=== PATIENT | male | born 1950 | race Caucasian/White ===

== ENCOUNTER → 2017-02-24 | Outpatient (CLI) | payer OTHER ==
[~2017-02-24] MED LIST: AMOX875T PO; HYDR-5688 PO
[2017-02-24 13:38] LABS: BASO % 0.3 %; BASO ABS # 0.02 K/uL (0-0.2); COMPLETE YES; EOS % 0.3 %; HEMATOCRIT 42.2 % (42-52); IG% 0.3 %; LYMPH % 16.9 %; LYMPH ABS # 1.12 K/uL (1.2-3.4); MEAN CELL VOLUME 87.6 fL (80-100); MEAN CORPUSCULAR HEMOGLOBIN 30.5 pg (25-34); MEAN CORPUSCULAR HGB CONC 34.8 g/dl (32-36); MEAN PLATELET VOLUME 9.6 fL (7.4-10.4); MONO % 14.2 %; PLATELET COUNT 146 K/uL (130-400); RED BLOOD COUNT 4.82 M/uL (4.7-6.1); WHITE BLOOD COUNT 6.62 K/uL (4.8-10.8)
[2017-02-24 14:13] LABS: ALT/SGPT 86 U/L (12-78); BLOOD UREA NITROGEN 19 mg/dl (7-18); BUN/CREATININE RATIO 17.1 (10-20); CALCIUM 9.3 mg/dl (8.5-10.1); CARBON DIOXIDE 28 mmol/L (21-32); CHLORIDE 98 mmol/L (98-107); CHOLESTEROL 168 mg/dl (0-200); GLUCOSE 103 mg/dl (70-99); POTASSIUM 3.6 mmol/L (3.5-5.1); SODIUM 133 mmol/L (136-145)
[2017-02-24 14:16] LABS: ALB/GLOB RATIO 0.8 (0.9-2); ALKALINE PHOSPHATASE 135 U/L (45-117); AST/SGOT 31 U/L (15-37); CHOLESTEROL/HDL RATIO 4.9; HDL CHOLESTEROL 34 mg/dl; LDL CHOLESTEROL CALCULATED 105 mg/dl; TRIGLYCERIDES 144 mg/dl (0-150); VERY LOW DENSITY LIPOPROT CALC 29 mg/dl
== END | disposition home or self-care (01) ==
LOC: C.LAB1850 12:16
PROVIDERS: ATTEND Physician Assistant
DX: Z00.00 Encounter for general adult medical examination without abnormal findings (principal)

== ENCOUNTER 2017-02-25 06:41 | Inpatient (IN) | payer OTHER ==
[2017-02-25] VITALS (7 sets, daily range): BP systolic 140–156; BP diastolic 79–94; PULSE 89–104; TEMP 36.6–37.9; O2SAT 93–97; Ht 188 cm; Wt 94.0 kg
[~2017-02-25] VITALS: Ht 188 cm; Wt 94.0 kg
--- NOTE | 2017-02-25 06:59 | EMERGENCY ROOM VISIT NOTE ---
History Report prepared by Dmitry: Modesta Landers Under the Supervision of: Dr. Juhi Contreras D.O. First contact with patient: 06:51 Chief Complaint: ABDOMINAL PAIN Stated Complaint: SICK History of Present Illness The patient is a 67 year old male who presents to the Emergency Room with complaints of worsening abdominal pain beginning 1 week prior to arrival. He describes the pain as a dull pressure sensation. He has been experiencing intermittent fevers and chills since the abdominal pain began. He states that he did eat a [place] hoagie and a salad last week which caused his abdominal pain to worsen. The patient also notes darker stools. The patient states that nothing improves the pain. The patient was seen at the clinic on Friday and was prescribed medication and had a stool sample done. He does note that taking Omeprazole and Zofran which he was prescribed slightly improves his symptoms. The patient saw his PCP yesterday who ordered blood work after thinking his abdominal pain is from taking too much Advil. He states that he takes Advil daily for his chronic hip pain. He had normal H&H, normal BNP, mild elevation of ALT and ALK phos. The patient's PCP is trying to schedule him for an endoscopy to be done by GI. He denies a history of GI problems. He denies a history fo abdominal pain. Pt denies headache, change in vision, fevers, chest pain, shortness of breath, nausea, vomiting, diarrhea, pain with urination, and melena. Source of History: patient Onset: 1 week [employer] Position: abdomen Quality: pressure, dull Timing: worsening Associated Symptoms: + fevers, + chills Note: The patient is experiencing darker stools. Review of Systems See HPI for pertinent positives & negatives. A total of 10 systems reviewed and were otherwise negative. Past Medical & Surgical Medical Problems: (1) Choledocholithiasis Surgical Problems: (1) Hx of tonsillectomy Family History Diabetes mellitus Heart disease Social History Smoking Status: Never Smoker Smokeless Tobacco Use: No Marital Status: Housing Status: lives with significant other Occupation Status: retired Current/Historical Medications No Active Prescriptions or Reported Meds Allergies Coded Allergies: No Known Allergies (Unverified , 02/25/17) Physical Exam Vital Signs Date Time Temp Pulse Resp B/P (MAP) Pulse Ox O2 Delivery O2 Flow Rate FiO2 02/25/17 10:31 87 16 176/100 95 02/25/17 08:31 94 16 193/115 97 02/25/17 06:55 87 02/25/17 06:45 36.4 96 16 152/95 97 Room Air Physical Exam GENERAL: alert, uncomfortable appearing, well nourished, no distress, non-toxic EYE EXAM: normal conjunctiva, PERRL and EOM's grossly intact OROPHARYNX: no exudate, no erythema, lips, buccal mucosa, and tongue normal and mucous membranes are moist NECK: supple, no nuchal rigidity, no adenopathy, non-tender LUNGS: Clear to auscultation. Normal chest wall mechanics HEART: no murmurs, S1 normal and S2 normal ABDOMEN: abdomen soft, non-tender, no organomegaly, normo-active bowel sounds, no masses, no rebound or guarding. BACK: Back is symmetrical on inspection and there is no deformity, no midline tenderness, no CVA tenderness. SKIN: no rashes and no bruising UPPER EXTREMITIES: upper extremities are grossly normal. LOWER EXTREMITIES: No pitting edema. NEURO EXAM: Normal sensorium, cranial nerves II-XII grossly intact, normal speech, no gross weakness of arms, no gross weakness of legs. Medical Decision & Procedures ER Provider Diagnostic Interpretation: Radiology results have been interpreted by the radiologist and reviewed by me. ABDOMEN AND PELVIS CT WITH IV CONTRAST CT DOSE: 587.27 mGy.cm HISTORY: abd pain TECHNIQUE: Multiaxial CT images of the abdomen and pelvis were performed following the use of intravenous contrast. COMPARISON STUDY: None. FINDINGS: Lung bases are clear. Mild fatty infiltration of liver. Several small hepatic hypodensities statistically consistent with small cysts. Spleen and pancreas are unremarkable. Gallbladder is mildly distended. There is a subtle indistinctness of the gallbladder wall with a trace amount of pericholecystic infiltrative change. At least 2 small gallstones are present region of the gallbladder neck. Possibility of acute cholecystitis is considered with right upper quadrant ultrasonography is suggested. Transaxial image 41 suggest potential choledocholithiasis with a potential 3 mm calculus of the distal common duct. No distention of the pancreatic duct. Bowel pattern is considered nonobstructive. There is approximately minimal nonobstructive ileus. Appendix is normal. There are findings of chronic sigmoid diverticulosis. There is no evidence for acute diverticulitis. IMPRESSION: 1. Findings highly suspect for acute cholecystitis. 2. Potential choledocholithiasis 3. Chronic sigmoid diverticulosis. 4. Minimal nonobstructive ileus 5. Normal appendix. 6. Right upper quadrant ultrasound is recommended as follow-up. Electronically signed by: Joey Perez M.D. 02/25/2017 8:45 AM Dictated Date/Time: 02/25/2017 8:41 AM ULTRASOUND RIGHT UPPER QUADRANT ABDOMEN CLINICAL HISTORY: Right upper quadrant abdominal pain. Abnormal CT. COMPARISON STUDY: Abdominal CT dated 02/25/2017. TECHNIQUE: Real-time, grayscale, and color flow sonography of the right upper quadrant of the abdomen was performed. Images are reviewed in the transverse and longitudinal planes. FINDINGS: Liver: The liver is enlarged measuring over 18 cm in length. The liver demonstrates heterogeneously increased echotexture suggesting steatosis. There is mild central intrahepatic biliary ductal dilatation. The main portal vein is patent. There are 2 well-circumscribed echogenic lesions in the right hepatic lobe these measure up to 12 mm and are typical appearance for small hemangiomas. Gallbladder: The gallbladder is distended and thick-walled. The gallbladder wall measures up to 4 mm and there is biliary sludge identified. Small stones are suspected. No pericholecystic fluid is seen. A sonographic Rosado's sign is reportedly absent. The common bile duct measures up to 0.8 cm in diameter. Pancreas: Not well visualized due to overlying bowel gas. Right kidney: Survey images of the right kidney demonstrate normal size and echotexture. There is no hydronephrosis. Ascites: None. IMPRESSION: 1. Findings are consistent with acute cholecystitis. This was also seen on today's abdominal CT scan. Surgical consultation is advised. 2. There is mild intra and extrahepatic biliary ductal dilatation. Common bile duct stones are identified on today's abdominal CT scan. 3. The pancreas was not well visualized due to overlying bowel gas. 4. There are at least 2 small echogenic hepatic lesions identified. These are typical appearance for small hemangiomas. 5. Hepatomegaly and mild hepatic steatosis. Electronically signed by: Bernard Hatch M.D. 02/25/2017 9:51 AM Dictated Date/Time: 02/25/2017 9:46 AM CHEST ONE VIEW PORTABLE CLINICAL HISTORY: pre-op preoperative evaluation COMPARISON STUDY: No previous studies for comparison. FINDINGS: Mild cardiomegaly. Diaphragms smooth. Lungs are clear. IMPRESSION: Mild cardia megaly. Otherwise negative study. Electronically signed by: Joey Perez M.D. 02/25/2017 11:23 AM Dictated Date/Time: 02/25/2017 11:22 AM Laboratory Results 02/25/17 07:09 Red Blood Count 4.76, Mean Corpuscular Volume 84.7, Mean Corpuscular Hemoglobin 31.3, Mean Corpuscular Hemoglobin Concent 37.0, Mean Platelet Volume 9.3, Neutrophils (%) (Auto) 85.0, Lymphocytes (%) (Auto) 4.5, Monocytes (%) (Auto) 10.0, Eosinophils (%) (Auto) 0.1, Basophils (%) (Auto) 0.1, Neutrophils # (Auto ) 8.42, Lymphocytes # (Auto) 0.45, Monocytes # (Auto) 0.99, Eosinophils # (Auto ) 0.01, Basophils # (Auto) 0.01 02/25/17 07:09 Test 02/25/17 07:07 02/25/17 07:09 Lactic Acid Level 1.3 mmol/L (0.4-2.0) White Blood Count 9.91 K/uL (4.8-10.8) Red Blood Count 4.76 M/uL (4.7-6.1) Hemoglobin 14.9 g/dL (14.0-18.0) Hematocrit 40.3 % (42-52) Mean Corpuscular Volume 84.7 fL (80-100) Mean Corpuscular Hemoglobin 31.3 pg (25-34) Mean Corpuscular Hemoglobin Concent 37.0 g/dl (32-36) Platelet Count 160 K/uL (130-400) Mean Platelet Volume 9.3 fL (7.4-10.4) Neutrophils (%) (Auto) 85.0 % Lymphocytes (%) (Auto) 4.5 % Monocytes (%) (Auto) 10.0 % Eosinophils (%) (Auto) 0.1 % Basophils (%) (Auto) 0.1 % Neutrophils # (Auto) 8.42 K/uL (1.4-6.5) Lymphocytes # (Auto) 0.45 K/uL (1.2-3.4) Monocytes # (Auto) 0.99 K/uL (0.11-0.59) Eosinophils # (Auto) 0.01 K/uL (0-0.5) Basophils # (Auto) 0.01 K/uL (0-0.2) RDW Standard Deviation 37.2 fL (36.4-46.3) RDW Coefficient of Variation 12.0 % (11.5-14.5) Immature Granulocyte % (Auto) 0.3 % Immature Granulocyte # (Auto) 0.03 K/uL (0.00-0.02) Prothrombin Time 12.3 SECONDS (9.0-12.0) Prothromb Time International Ratio 1.1 (0.9-1.1) Anion Gap 10.0 mmol/L (3-11) Est Creatinine Clear Calc Drug Dose 86.3 ml/min Estimated GFR () 95.5 Estimated GFR (Non- 82.4 BUN/Creatinine Ratio 16.1 (10-20) Calcium Level 8.7 mg/dl (8.5-10.1) Total Bilirubin 1.5 mg/dl (0.2-1) Aspartate Amino Transf (AST/SGOT) 34 U/L (15-37) Alanine Aminotransferase (ALT/SGPT) 88 U/L (12-78) Alkaline Phosphatase 170 U/L (45-117) Total Protein 7.3 gm/dl (6.4-8.2) Albumin 3.2 gm/dl (3.4-5.0) Globulin 4.1 gm/dl (2.5-4.0) Albumin/Globulin Ratio 0.8 (0.9-2) Lipase 397 U/L (73-393) Laboratory results per my review. Medications Administered Medications (Trade) Dose Ordered Sig/Melody Route Start Time Stop Time Status Last Admin Dose Admin Morphine Sulfate (MoRPHine SULFATE INJ) 4 mg NOW STAT IV 02/25/17 07:06 02/25/17 07:08 DC 02/25/17 07:15 4 MG Ondansetron HCl (Zofran Inj) 4 mg NOW STAT IV 02/25/17 07:06 02/25/17 07:08 DC 02/25/17 07:16 4 MG Pantoprazole Sodium 40 mg/ Syringe 10 ml @ 5 mls/min NOW ONCE IV 02/25/17 07:15 02/25/17 07:16 DC 02/25/17 07:47 5 MLS/MIN Sodium Chloride 1,000 ml @ 250 mls/hr Q4H STAT IV 02/25/17 07:06 02/25/17 11:05 DC 02/25/17 07:15 250 MLS/HR Morphine Sulfate (MoRPHine SULFATE INJ) 4 mg NOW STAT IV 02/25/17 08:11 02/25/17 08:12 DC 02/25/17 08:16 4 MG Hydromorphone HCl (Dilaudid Inj) 1 mg NOW STAT IV 02/25/17 08:52 02/25/17 09:03 DC 02/25/17 09:26 1 MG Cefoxitin Sodium (Mefoxin 2000mg/ 60 ml D5W) 2,000 mg NOW STAT IV 02/25/17 10:13 02/25/17 10:14 DC 02/25/17 10:50 2,000 MG ECG Indication: abdominal pain Rate (beats per minute): 88 Rhythm: normal sinus Findings: PVC, no acute ischemic change, other (normal intervals, normal axis) ED Course 0651: The patient was evaluated in room B2. A complete history and physical exam was performed. 0706: Sodium Chloride 1,000 ml @ 125 mls/hr IV, Zofran Inj 4 mg IV, Morphine Sulfate Inj 4 mg IV. 0715: Pantoprazole Sodium 40 mg/ Syringe 10 ml @ 5 mls/min IV. 0853: I updated the patient on his test results. 1010: I reviewed the patient's case with Dr. Bañuelos - General Surgery. Dr. Bañuelos will evaluate the patient and prep for the OR. 1013: Mefoxin 2000 mg/ 60 ml D5W 2,000 mg IV. 1016: I updated the patient on plan for Dr. Bañuelos to evaluate and prep for surgery. 1024: Upon reevaluation, the patient is hemodynamically stable. I discussed the findings and the treatment plan with the patient. He expresses agreement and understanding. I spoke with Dr. Bañuelos of General Surgery. He will be evaluated for further management. Medical Decision The patient is a 67 year old male who presents to the ED with complaints of abdominal pain. Differential diagnoses includes but is not limited to gastritis, peptic ulcer disease, GERD, gallbladder disease, pancreatitis, small bowel obstruction, acute coronary syndrome, pericarditis, ischemic bowel, irritable bowel disease, irritable bowel syndrome, appendicitis, diverticulitis, malignancy, hernia, urinary tract infection, torsion, perforation, trauma, infectious. Blood pressure screening: Patient was found to have a slightly elevated blood pressure due to circumstances. I do not believe that the patient requires hypertension monitoring. Patient initially ill-appearing, evaluation found acute cholecystitis and possible choledocholithiasis. No evidence of bacteremia/sepsis. Pain well controlled here with medications. Discussed case with surgery who admitted the patient primarily. Surgery consulted with GI and will continue evaluate the choledocholithiasis. Vital signs otherwise stable. Patient given preoperative dose of antibiotics and IV fluids was maintained nothing by mouth. Patient and family aware of all findings were agreeable with plan for admission and likely surgery. Consults Time Called: 1007 Consulting Physician: Dr. Bañuelos - General Surgery Returned Call: [phone] I reviewed the patient's case with Dr. Bañuelos - General Surgery. Dr. Bañuelos will evaluate the patient and prep for the OR. Impression Primary Impression: Abdominal pain Additional Impressions: Acute cholecystitis Choledocholithiasis Scribe Attestation The scribe's documentation has been prepared under my direction and personally reviewed by me in its entirety. I confirm that the note above accurately reflects all work, treatment, procedures, and medical decision making performed by me. Departure Information Dispostion Being Evaluated By Surgeon Prescriptions No Active Prescriptions or Reported Meds Referrals Pro,Brent Gant M.D. (PCP) Problem Qualifiers Primary Impression: Abdominal pain Abdominal location: generalized Qualified Codes: R10.84 - Generalized abdominal pain
[2017-02-25] MEDS ORDERED: SODIUM CHLORIDE 0.9% 1000ML 1,000 ML IV STA (07:06)
[2017-02-25] MEDS ORDERED: MoRPHine SULFATE 4 MG/ML 1 ML CARP\\VIAL IV STA ×2 (07:06→08:11)
[2017-02-25] MEDS ORDERED: ONDANSETRON INJ 2 MG/ML 2 ML VIAL IV STA (07:06)
[2017-02-25] MEDS ORDERED: PANTOprazole INJ 40 MG in SYRINGE 0 ML IV ONE (07:15)
[2017-02-25 07:29] LABS: BASO % 0.1 %; BASO ABS # 0.01 K/uL (0-0.2); COMPLETE YES; EOS % 0.1 %; HEMATOCRIT 40.3 % (42-52); IG% 0.3 %; LYMPH % 4.5 %; LYMPH ABS # 0.45 K/uL (1.2-3.4); MEAN CELL VOLUME 84.7 fL (80-100); MEAN CORPUSCULAR HEMOGLOBIN 31.3 pg (25-34); MEAN PLATELET VOLUME 9.3 fL (7.4-10.4); PLATELET COUNT 160 K/uL (130-400); RED BLOOD COUNT 4.76 M/uL (4.7-6.1); WHITE BLOOD COUNT 9.91 K/uL (4.8-10.8)
[2017-02-25 07:37] LABS: INR 1.1 (0.9-1.1); PROTHROMBIN TIME (PATIENT) 12.3 SECONDS (9.0-12.0)
[2017-02-25 07:47] LABS: BUN/CREATININE RATIO 16.1 (10-20); CALCIUM 8.7 mg/dl (8.5-10.1); CREATININE 0.94 mg/dl (0.60-1.40); POTASSIUM 3.5 mmol/L (3.5-5.1)
[2017-02-25 07:52] LABS: ALB/GLOB RATIO 0.8 (0.9-2)
--- NOTE | 2017-02-25 08:46 | DIAGNOSTIC IMAGING REPORT ---
ABDOMEN AND PELVIS CT WITH IV CONTRAST CT DOSE: 587.27 mGy.cm HISTORY: abd pain TECHNIQUE: Multiaxial CT images of the abdomen and pelvis were performed following the use of intravenous contrast. COMPARISON STUDY: None. FINDINGS: Lung bases are clear. Mild fatty infiltration of liver. Several small hepatic hypodensities statistically consistent with small cysts. Spleen and pancreas are unremarkable. Gallbladder is mildly distended. There is a subtle indistinctness of the gallbladder wall with a trace amount of pericholecystic infiltrative change. At least 2 small gallstones are present region of the gallbladder neck. Possibility of acute cholecystitis is considered with right upper quadrant ultrasonography is suggested. Transaxial image 41 suggest potential choledocholithiasis with a potential 3 mm calculus of the distal common duct. No distention of the pancreatic duct. Bowel pattern is considered nonobstructive. There is approximately minimal nonobstructive ileus. Appendix is normal. There are findings of chronic sigmoid diverticulosis. There is no evidence for acute diverticulitis. IMPRESSION: 1. Findings highly suspect for acute cholecystitis. 2. Potential choledocholithiasis 3. Chronic sigmoid diverticulosis. 4. Minimal nonobstructive ileus 5. Normal appendix. 6. Right upper quadrant ultrasound is recommended as follow-up. Electronically signed by: Joey Perez M.D. 02/25/2017 8:45 AM Dictated Date/Time: 02/25/2017 8:41 AM
[2017-02-25] MEDS ORDERED: HYDROmorphone INJ 1 MG/ML SYR IV STA (08:52)
--- NOTE | 2017-02-25 09:53 | DIAGNOSTIC IMAGING REPORT ---
ULTRASOUND RIGHT UPPER QUADRANT ABDOMEN CLINICAL HISTORY: Right upper quadrant abdominal pain. Abnormal CT. COMPARISON STUDY: Abdominal CT dated 02/25/2017. TECHNIQUE: Real-time, grayscale, and color flow sonography of the right upper quadrant of the abdomen was performed. Images are reviewed in the transverse and longitudinal planes. FINDINGS: Liver: The liver is enlarged measuring over 18 cm in length. The liver demonstrates heterogeneously increased echotexture suggesting steatosis. There is mild central intrahepatic biliary ductal dilatation. The main portal vein is patent. There are 2 well-circumscribed echogenic lesions in the right hepatic lobe these measure up to 12 mm and are typical appearance for small hemangiomas. Gallbladder: The gallbladder is distended and thick-walled. The gallbladder wall measures up to 4 mm and there is biliary sludge identified. Small stones are suspected. No pericholecystic fluid is seen. A sonographic Rosado's sign is reportedly absent. The common bile duct measures up to 0.8 cm in diameter. Pancreas: Not well visualized due to overlying bowel gas. Right kidney: Survey images of the right kidney demonstrate normal size and echotexture. There is no hydronephrosis. Ascites: None. IMPRESSION: 1. Findings are consistent with acute cholecystitis. This was also seen on today's abdominal CT scan. Surgical consultation is advised. 2. There is mild intra and extrahepatic biliary ductal dilatation. Common bile duct stones are identified on today's abdominal CT scan. 3. The pancreas was not well visualized due to overlying bowel gas. 4. There are at least 2 small echogenic hepatic lesions identified. These are typical appearance for small hemangiomas. 5. Hepatomegaly and mild hepatic steatosis. Electronically signed by: Bernard Hatch M.D. 02/25/2017 9:51 AM Dictated Date/Time: 02/25/2017 9:46 AM
[2017-02-25] MEDS ORDERED: CEFOXITIN 2000MG/60 ML D5W IV STA (10:13)
--- NOTE | 2017-02-25 10:41 | History and Physical ---
History & Physical Date & Time of Service: Feb 25, 2017 at 10:33 Chief Complaint: SICK Primary Care Physician: Brent Wilson M.D. History of Present Illness Source: patient, spouse to Er with abd pain worse over 24-48 hrs- intermittent over 1 week some nausea, no vomiting ER eval including CT and U/S- shows acute cholecystitis and possible CBD stone on CT- elevated LFTs (mild) Family History Diabetes mellitus Heart disease Social History Smoking Status: Never Smoker Smokeless Tobacco Use: No Marital Status: Occupational Status: retired Allergies Coded Allergies: No Known Allergies (Unverified , 02/25/17) Home Medications No Active Prescriptions or Reported Meds Review of Systems Constitutional: No fever, No chills Respiratory: No cough, No shortness of breath Cardiovascular: No chest pain Abdomen: + pain, + nausea, No vomiting Musculoskeletal: No joint pain Endocrine: No fatigue Integumentary: No rash Physical Exam Vital Signs Date Time Temp Pulse Resp B/P (MAP) Pulse Ox O2 Delivery O2 Flow Rate FiO2 02/25/17 10:31 87 16 176/100 95 02/25/17 08:31 94 16 193/115 97 02/25/17 06:55 87 02/25/17 06:45 36.4 96 16 152/95 97 Room Air General Appearance: WD/WN, no apparent distress Head: atraumatic Eyes: sclerae normal Neck: supple Respiratory/Chest: normal breath sounds, no respiratory distress Cardiovascular: regular rate, rhythm Abdomen/GI: soft, + tenderness (mild upper abd pain) Neurologic/Psych: alert Skin: warm/dry Diagnostics Laboratory Results Results Past 24 Hours Test 02/25/17 07:07 02/25/17 07:09 Range/Units Lactic Acid Level 1.3 0.4-2.0 mmol/L White Blood Count 9.91 4.8-10.8 K/uL Red Blood Count 4.76 4.7-6.1 M/uL Hemoglobin 14.9 14.0-18.0 g/dL Hematocrit 40.3 42-52 % Mean Corpuscular Volume 84.7 80-100 fL Mean Corpuscular Hemoglobin 31.3 25-34 pg Mean Corpuscular Hemoglobin Concent 37.0 32-36 g/dl Platelet Count 160 130-400 K/uL Mean Platelet Volume 9.3 7.4-10.4 fL Neutrophils (%) (Auto) 85.0 % Lymphocytes (%) (Auto) 4.5 % Monocytes (%) (Auto) 10.0 % Eosinophils (%) (Auto) 0.1 % Basophils (%) (Auto) 0.1 % Neutrophils # (Auto) 8.42 1.4-6.5 K/uL Lymphocytes # (Auto) 0.45 1.2-3.4 K/uL Monocytes # (Auto) 0.99 0.11-0.59 K/uL Eosinophils # (Auto) 0.01 0-0.5 K/uL Basophils # (Auto) 0.01 0-0.2 K/uL RDW Standard Deviation 37.2 36.4-46.3 fL RDW Coefficient of Variation 12.0 11.5-14.5 % Immature Granulocyte % (Auto) 0.3 % Immature Granulocyte # (Auto) 0.03 0.00-0.02 K/uL Prothrombin Time 12.3 9.0-12.0 SECONDS Prothromb Time International Ratio 1.1 0.9-1.1 Sodium Level 133 136-145 mmol/L Potassium Level 3.5 3.5-5.1 mmol/L Chloride Level 96 98-107 mmol/L Carbon Dioxide Level 27 21-32 mmol/L Anion Gap 10.0 3-11 mmol/L Blood Urea Nitrogen 15 7-18 mg/dl Creatinine 0.94 0.60-1.40 mg/dl Est Creatinine Clear Calc Drug Dose 86.3 ml/min Estimated GFR () 95.5 Estimated GFR (Non- 82.4 BUN/Creatinine Ratio 16.1 10-20 Random Glucose 160 70-99 mg/dl Calcium Level 8.7 8.5-10.1 mg/dl Total Bilirubin 1.5 0.2-1 mg/dl Aspartate Amino Transf (AST/SGOT) 34 15-37 U/L Alanine Aminotransferase (ALT/SGPT) 88 12-78 U/L Alkaline Phosphatase 170 45-117 U/L Total Protein 7.3 6.4-8.2 gm/dl Albumin 3.2 3.4-5.0 gm/dl Globulin 4.1 2.5-4.0 gm/dl Albumin/Globulin Ratio 0.8 0.9-2 Lipase 397 73-393 U/L Impression Assessment and Plan admit with acute cholecystitis, npo, IV atbx, ask [facility] hospitalist to see (Htn) and GI consult for possible ERCP order MRCP will need lap eleonora at some point VTE Prophylaxis VTE Risk Assessment Done? Y/N: Yes Risk Level: Moderate
[2017-02-25] MEDS ORDERED: PROMETHAZINE HCL INJ 25 MG in SODIUM CHLORIDE 0.9% 50ML 50 ML IV PRN (10:45)
[2017-02-25] MEDS ORDERED: ONDANSETRON INJ 2 MG/ML 2 ML VIAL IV PRN ×3 (10:45→16:15)
[2017-02-25] MEDS ORDERED: HYDROmorphone INJ 0.5 MG/0.5 ML SYR IV PRN (10:45)
[2017-02-25] MEDS ORDERED: HYDROmorphone INJ 1 MG/ML SYR IV PRN ×3 (10:45→16:15)
[2017-02-25] MEDS ORDERED: PROMETHAZINE HCL INJ 12.5 MG in SODIUM CHLORIDE 0.9% 50ML 50 ML IV PRN (11:00)
--- NOTE | 2017-02-25 11:24 | DIAGNOSTIC IMAGING REPORT ---
CHEST ONE VIEW PORTABLE CLINICAL HISTORY: pre-op preoperative evaluation COMPARISON STUDY: No previous studies for comparison. FINDINGS: Mild cardiomegaly. Diaphragms smooth. Lungs are clear. IMPRESSION: Mild cardia megaly. Otherwise negative study. Electronically signed by: Joey Perez M.D. 02/25/2017 11:23 AM Dictated Date/Time: 02/25/2017 11:22 AM
--- NOTE | 2017-02-25 11:53 | Gastrointestinal Consultation ---
Gastrointestinal Consultation Date of Consultation: Feb 25, 2017 Attending Physician: Ricardo Bañuelos Consulting Physician: Juanita Harris Reason for Consultation: Possible CBD stone History of Present Illness Patient is a 67 year old male who presented to ED w c/o diffuse mid abd pain since last along w chills. He denies associated fever, CP, SOB, n/v, changes in BM habits. Denies recent travels or sick contact. States relatively healthy not on meds. Upon eval, afebrile, CBC and coag studies unremarkable, but CMP showed LFT elevation: Tbili 1.5, AST 34, ALT 88, AP 170, Lipase >300s. Gallbladder u/s and CT abd/pelvis done - concerning for acute cholecystitis, possible CBD stone of 3mm, though CBD measured 8mm. Past Medical/Surgical History Medical Problems: (1) Abdominal pain Status: Acute (2) Acute cholecystitis Status: Acute Past Medical History: See HPI Past Surgical History: Tonsillectomy Family History Diabetes mellitus Heart disease Unrelated Social History Smoking Status: Former Smoker Alcohol Use: occasionally Drug Use: none Marital Status: Housing Status: lives with significant other Occupation Status: retired Allergies Coded Allergies: No Known Allergies (Unverified , 02/25/17) Current Medications Home Meds and Scripts Medications Dose Route/Sig Max Daily Dose Days Date Category No Active Prescriptions or Reported Medications Rx Review of Systems Constitutional: + chills, No fever Respiratory: No cough, No shortness of breath Cardiac: No chest pain Abdomen: + pain, No nausea, No vomiting, No diarrhea Skin: No rash, No itch, No jaundice Physical Exam Date Time Temp Pulse Resp B/P (MAP) Pulse Ox O2 Delivery O2 Flow Rate FiO2 02/25/17 10:45 95 Room Air 02/25/17 10:31 87 16 176/100 95 02/25/17 08:31 94 16 193/115 97 02/25/17 06:55 87 02/25/17 06:45 36.4 96 16 152/95 97 Room Air General Appearance: WD/WN, no apparent distress Eyes: normal inspection, PERRL, EOMI Neck: supple, no JVD, trachea midline Respiratory/Chest: normal breath sounds, no respiratory distress, no accessory muscle use Cardiovascular: regular rate, rhythm, no gallop, no murmur Abdomen: normal bowel sounds, non tender, soft Extremities: normal inspection, no pedal edema, no calf tenderness Neurologic/Psych: alert, normal mood/affect, oriented x 3 Skin: normal color, no jaundice, no rash Laboratory Results Last 24 Hours Test 02/25/17 07:07 02/25/17 07:09 Lactic Acid Level 1.3 mmol/L White Blood Count 9.91 K/uL Red Blood Count 4.76 M/uL Hemoglobin 14.9 g/dL Hematocrit 40.3 % Mean Corpuscular Volume 84.7 fL Mean Corpuscular Hemoglobin 31.3 pg Mean Corpuscular Hemoglobin Concent 37.0 g/dl Platelet Count 160 K/uL Mean Platelet Volume 9.3 fL Neutrophils (%) (Auto) 85.0 % Lymphocytes (%) (Auto) 4.5 % Monocytes (%) (Auto) 10.0 % Eosinophils (%) (Auto) 0.1 % Basophils (%) (Auto) 0.1 % Neutrophils # (Auto) 8.42 K/uL Lymphocytes # (Auto) 0.45 K/uL Monocytes # (Auto) 0.99 K/uL Eosinophils # (Auto) 0.01 K/uL Basophils # (Auto) 0.01 K/uL RDW Standard Deviation 37.2 fL RDW Coefficient of Variation 12.0 % Immature Granulocyte % (Auto) 0.3 % Immature Granulocyte # (Auto) 0.03 K/uL Prothrombin Time 12.3 SECONDS Prothromb Time International Ratio 1.1 Sodium Level 133 mmol/L Potassium Level 3.5 mmol/L Chloride Level 96 mmol/L Carbon Dioxide Level 27 mmol/L Anion Gap 10.0 mmol/L Blood Urea Nitrogen 15 mg/dl Creatinine 0.94 mg/dl Est Creatinine Clear Calc Drug Dose 86.3 ml/min Estimated GFR () 95.5 Estimated GFR (Non- 82.4 BUN/Creatinine Ratio 16.1 Random Glucose 160 mg/dl Calcium Level 8.7 mg/dl Total Bilirubin 1.5 mg/dl Aspartate Amino Transf (AST/SGOT) 34 U/L Alanine Aminotransferase (ALT/SGPT) 88 U/L Alkaline Phosphatase 170 U/L Total Protein 7.3 gm/dl Albumin 3.2 gm/dl Globulin 4.1 gm/dl Albumin/Globulin Ratio 0.8 Lipase 397 U/L Impression Patient is a 67 year old male w mid abd pain since last , no fever but chills. Labs showed elevated LFTs, Lipase, imaging w u/s and CT abd/pelvis concerning for acute cholecystitis and possible CBD stone, + mild intra/ extrahepatic ductal dilation. CBD measured 8mm. Plan - Keep NPO - Obtain MRCP - Surgery already following - Agree w antibx and IVF support Addendum: MRCP positive for filling defect concerning for choledocholithiasis. Pt will have lap cholecystectomy by Dr. Bañuelos today, plan for ERCP on at 2P by Dr. Bonds Late entry: Patient was seen and examined with Kalie Hernandez on 02/25. Her note reflects our findings and plan.
--- NOTE | 2017-02-25 12:59 | DIAGNOSTIC IMAGING REPORT ---
MRCP CLINICAL HISTORY: Cholecystitis and cholelithiasis. COMPARISON STUDY: Abdominal CT and abdominal ultrasound dated 02/25/2017. TECHNIQUE: Abdominal MRCP is performed utilizing various T2-weighted sequences in the axial and coronal planes. 3-D reformats are created and assessed. IV contrast was not administered for this examination. The examination is degraded by motion artifact. FINDINGS: The gallbladder is distended and filled with sludge and gallstones. The gallbladder wall is thickened and edematous. The appearance is consistent with acute cholecystitis, and there is trace pericholecystic fluid. There is mild intrahepatic biliary ductal dilatation. The common hepatic duct is dilated and measures up to 8 mm at the hilum. There is focal narrowing of the common duct seen proximally on coronal high-resolution image #89 of 132. Common bile duct wall thickening suggested at this site. The distal common bile duct is normal in caliber and measures up to 5 mm at the head of the pancreas. There is a 5 mm filling defect in the distal common bile duct seen on coronal image #93 and axial image #32. This corresponds to the calcified gallstone seen by CT. There is a focus of susceptibility artifact adjacent to the ampulla secondary to a tiny duodenal diverticulum. The pancreatic duct is normal in caliber. Small hepatic cysts are noted. The liver is otherwise grossly normal as imaged. The spleen, adrenal glands, pancreas are grossly unremarkable although incompletely assessed. The kidneys are normal in size and without hydronephrosis. Tiny renal cysts are suggested. No bowel obstruction is identified. No pleural effusion is seen. IMPRESSION: 1. Cholelithiasis and biliary sludge with evidence of acute cholecystitis. 2. A filling defect in the distal common bile duct is consistent with choledocholithiasis. This corresponds to the small calcified gallstone seen by CT. 3. There is focal narrowing in the proximal common bile duct with apparent wall thickening. No clear intraluminal filling defect is seen at this site. Although this could represent a proximal common duct stone, differential considerations must include stricture or less likely mass lesion. Follow-up with ERCP is recommended for further assessment. Electronically signed by: Bernard Hatch M.D. 02/25/2017 12:58 PM Dictated Date/Time: 02/25/2017 12:46 PM
[2017-02-25] MEDS ORDERED: LACTATED RINGER'S 1000ML 1,000 ML IV SCH (13:30)
[2017-02-25] MEDS ORDERED: MIDAZOLAM HCL 1 MG/ML 2ML VIAL ONE (14:08)
[2017-02-25] MEDS ORDERED: FENTANYL CITRATE INJ 50 MCG/1 ML 2 ML VIAL ONE ×3 (14:08→15:17)
[2017-02-25] MEDS ORDERED: ROCURONIUM BROMIDE 10 MG/ML 5 ML VIAL ONE (14:14)
[2017-02-25] MEDS ORDERED: DEXAMETHASONE SOD INJ 4 MG/ML VIAL ONE (14:14)
[2017-02-25] MEDS ORDERED: PROPOFOL IV EMULSION 10 MG/ML 20 ML VIAL IV ONE (14:14)
[2017-02-25] MEDS ORDERED: NEOSTIGMINE METHYLSULFATE 5 MG/5 ML SYR ONE (14:14)
[2017-02-25] MEDS ORDERED: LARYING-O-JET KIT (LTA) ONE ×2 (14:14)
[2017-02-25] MEDS ORDERED: GLYCOPYRROLATE INJ 0.2 MG/ML VIAL ONE (14:14)
[2017-02-25] MEDS ORDERED: LIDOCAINE HCL 2% 2 ML VIAL (20MG/ML) ONE (14:14)
[2017-02-25] MEDS ORDERED: ONDANSETRON INJ 2 MG/ML 2 ML VIAL ONE (14:14)
[2017-02-25] MEDS ORDERED: HydrALAZINE HCL 20 MG/ML VIAL IV. PRN (14:15)
[2017-02-25] MEDS ORDERED: BUPIVACAINE 0.5 % 5 MG/1 ML MPF 30ML VIAL ONE (14:25)
--- NOTE | 2017-02-25 14:25 | Medical Consult ---
Consultation Date of Consultation: Feb 25, 2017. Attending Physician: Ricardo Bañuelos M.D. Reason for Consultation: Medical Management History of Present Illness Mr. Bacon is a 67 y/o male with an unremarkable PMHx who was found to have acute cholecystitis due to cholelithiasis and biliary sludge. MRCP suggests choledocholithias in the distal CBD. Patient denies a history of HTN and states normally his readings are under control. He was noted to have BPs ranging from 170-190/100-115 in the ED. He is mildly febrile on vitals. Reporting abdominal pain is minimal at this time. When pain is present it is a dull/aching sensation. No acute abdomen, guarding, rigidity. He is schedule for lap eleonora this afternoon. He denies cardiac history - denying H/O [place], CAD, CHF, DVT/PE. Past Medical/Surgical History Medical Problems: (1) Abdominal pain Status: Acute (2) Acute cholecystitis Status: Acute Family History Diabetes mellitus Heart disease Social History Smoking Status: Former Smoker Smokeless Tobacco Use: No Drug Use: none Marital Status: Housing Status: lives with significant other Occupation Status: retired Allergies Coded Allergies: No Known Allergies (Unverified , 02/25/17) Current Inpatient Medications Current Inpatient Medications Medications (Trade) Dose Ordered Sig/Melody Route Start Time Stop Time Status Last Admin Dose Admin Lactated Ringer's 1,000 ml @ 125 mls/hr Q8H IV 02/25/17 13:30 03/27/17 13:29 02/25/17 13:18 125 MLS/HR Cefoxitin Sodium 1000 mg/Dextrose 60 ml @ 100 mls/hr Q8H IV 02/25/17 18:00 03/07/17 09:59 Hydromorphone HCl (Dilaudid Inj) 0.5 mg Q3H PRN IV 02/25/17 10:45 03/11/17 10:44 Hydromorphone HCl (Dilaudid Inj) 1 mg Q3H PRN IV 02/25/17 10:45 03/11/17 10:44 Promethazine HCl 25 mg/Sodium Chloride 51 ml @ 204 mls/hr Q6H PRN IV 02/25/17 10:45 03/27/17 10:44 Ondansetron HCl (Zofran Inj) 4 mg Q6H PRN IV 02/25/17 10:45 03/27/17 10:44 Promethazine HCl 12.5 mg/Sodium Chloride 50.5 ml @ 204 mls/hr Q6H PRN IV 02/25/17 11:00 03/27/17 10:59 Indomethacin (Indocin Suppository) 100 mg ONE ONCE IA 02/27/17 07:00 02/27/17 07:01 UNV Review of Systems Constitutional: No fever, No chills Eyes: No worsening of vision ENT: No nasal symptoms, No sore throat, No trouble swallowing Respiratory: No cough, No wheezing, No shortness of breath Cardiovascular: No chest pain, No palpitations Abdomen: + pain (minimal), No nausea, No vomiting, No diarrhea, No constipation , No GI bleeding Musculoskeletal: No swelling, No calf pain Genitourinary - Male: No dysuria Hematologic / Lymphatic: No abnormal bleeding/bruising, No clotting problems Integumentary: No rash, No new/changing skin lesions Physical Exam Date Time Temp Pulse Resp B/P (MAP) Pulse Ox O2 Delivery O2 Flow Rate FiO2 02/25/17 13:00 Room Air 02/25/17 13:00 37.6 92 20 140/83 (102) 94 Room Air 02/25/17 12:23 77 18 96 02/25/17 10:45 95 Room Air 02/25/17 10:31 87 16 176/100 95 02/25/17 08:31 94 16 193/115 97 02/25/17 06:55 87 02/25/17 06:45 36.4 96 16 152/95 97 Room Air General Appearance: WD/WN, no apparent distress Head: normocephalic, atraumatic ENT: hearing grossly normal Neck: supple, no JVD, trachea midline Respiratory/Chest: lungs clear, normal breath sounds, no respiratory distress, no accessory muscle use Cardiovascular: regular rate, rhythm, no gallop, no murmur Abdomen/GI: normal bowel sounds, soft, + tenderness (mild in RUQ) Extremities/Musculoskelatal: no calf tenderness, no pedal edema Neurologic/Psych: alert, oriented x 3 Laboratory Results Last 24 Hours Test 02/25/17 07:07 02/25/17 07:09 Lactic Acid Level 1.3 mmol/L White Blood Count 9.91 K/uL Red Blood Count 4.76 M/uL Hemoglobin 14.9 g/dL Hematocrit 40.3 % Mean Corpuscular Volume 84.7 fL Mean Corpuscular Hemoglobin 31.3 pg Mean Corpuscular Hemoglobin Concent 37.0 g/dl Platelet Count 160 K/uL Mean Platelet Volume 9.3 fL Neutrophils (%) (Auto) 85.0 % Lymphocytes (%) (Auto) 4.5 % Monocytes (%) (Auto) 10.0 % Eosinophils (%) (Auto) 0.1 % Basophils (%) (Auto) 0.1 % Neutrophils # (Auto) 8.42 K/uL Lymphocytes # (Auto) 0.45 K/uL Monocytes # (Auto) 0.99 K/uL Eosinophils # (Auto) 0.01 K/uL Basophils # (Auto) 0.01 K/uL RDW Standard Deviation 37.2 fL RDW Coefficient of Variation 12.0 % Immature Granulocyte % (Auto) 0.3 % Immature Granulocyte # (Auto) 0.03 K/uL Prothrombin Time 12.3 SECONDS Prothromb Time International Ratio 1.1 Sodium Level 133 mmol/L Potassium Level 3.5 mmol/L Chloride Level 96 mmol/L Carbon Dioxide Level 27 mmol/L Anion Gap 10.0 mmol/L Blood Urea Nitrogen 15 mg/dl Creatinine 0.94 mg/dl Est Creatinine Clear Calc Drug Dose 86.3 ml/min Estimated GFR () 95.5 Estimated GFR (Non- 82.4 BUN/Creatinine Ratio 16.1 Random Glucose 160 mg/dl Calcium Level 8.7 mg/dl Total Bilirubin 1.5 mg/dl Aspartate Amino Transf (AST/SGOT) 34 U/L Alanine Aminotransferase (ALT/SGPT) 88 U/L Alkaline Phosphatase 170 U/L Total Protein 7.3 gm/dl Albumin 3.2 gm/dl Globulin 4.1 gm/dl Albumin/Globulin Ratio 0.8 Lipase 397 U/L Assessment & Plan Mr. Bacon is a 67 y/o male with an unremarkable PMHx who was found to have acute cholecystitis due to cholelithiasis and biliary sludge. MRCP suggests choledocholithias in the distal CBD. Acute Cholecystitis with Cholelithiasis/Biliary Sludge and Choledocholithiasis: - IVF, Abx, Pain Management, DVT prophylaxis per primary - Dr. Bañuelos - GI consultation for possible need for ERCP with choledocholithiasis Hypertensive BPs: - No documented history of hypertension and not on any medications - may possibly be pain response vs undiagnosed - Hydralazine PRN - Will continue to monitor Disposition: - Will monitor BPs and reasonable to follow overnight. If BP readings controlled can sign off in AM. - If continues to stay elevated can initiate a medication or defer to PCP Resident Physician Supervision Note: I discussed the case with the PA and agree with the findings and plan as documented in the note. Any exceptions or clarifications are listed here: 67 y/o M who denies significant medical history - presented with RUQ pain - diagnosed with acute eleonora - pt taken to OR Successful lap eleonora per report - necrotizing eleonora present Pt attended ER prior to my own exam - addendum to follow Documented By: Brent Leonardo
[2017-02-25] MEDS ORDERED: ATROPINE SULFATE 0.1 MG/ML 5ML SYR IV PRN ×2 (14:30→16:15)
[2017-02-25] MEDS ORDERED: EpHEDrine SULFATE INJ 50 MG/ML AMP IV PRN ×2 (14:30→16:15)
[2017-02-25] MEDS ORDERED: FENTANYL CITRATE INJ 50 MCG/1 ML 2 ML VIAL IV PRN ×2 (14:30→16:15)
[2017-02-25] MEDS ORDERED: LABETALOL HCL IV 5 MG/ML 20ML IV PRN (14:30)
[2017-02-25] MEDS ORDERED: MEPERIDINE HCL 25 MG/ML CARP IV PRN (14:30)
[2017-02-25] MEDS ORDERED: HYDROCODONE/ACETAMOPHEN 5/325MG TAB PO PRN (15:45)
--- NOTE | 2017-02-25 15:56 | [facility] Operative Report ---
Operative Report Operative Date Feb 25, 2017. Pre-Operative Diagnosis Acute Cholecystitis Post-Operative Diagnosis Acute Cholecystitis, necrotizing (gangrenous) cholecystitis Procedure(s) Performed Laparoscopic Cholecystectomy Surgeon Dr. Bañuelos Reverberatory Skimmer Surgeon(s) wilner Foster Estimated Blood Loss 20ML Findings severe necrotizing (gangrenous ) cholecystitis Specimens A. Gallbladder Drains #15 Rd DYLAN Anesthesia gen Complication(s) None Disposition Recovery Room / PACU Description of Procedure Patient was brought in the operating room placed the operating room table in supine position. Pneumatic stockings and orogastric tube were placed. His abdomen was prepped and draped usual fashion. Half percent plain Marcaine was used to anesthetize all incisions. Incision was made above the umbilicus carried dissection down to the fascia placing a varies needle producing a pneumoperitoneum. An 11 mm port was placed at this level and then under visualization 3-5 mm ports were placed. One cephalad and 2 laterally. Patient was placed in reverse Trendelenburg position and rotated to the left. The omentum was adherent to the gallbladder which was severely inflamed and gangrenous. The gallbladder was decompressed of bile and thick fluid. Dissection was carried out the chad hepatis which showed severe inflammation. The cystic duct and cystic artery were identified clipped and transected. The gallbladder was dissected away from the liver bed in the usual fashion showing severe necrosis. Gallbladder was placed in an Endobag. Appropriate irrigation and hemostasis a #15 round Ke-Zepeda drain was placed through the lateral 5 mm port site and secured using 3-0 nylon suture. It was placed into the subhepatic space. The 5 mm camera was then used to remove the gallbladder through the umbilical site. I did have to enlarge the skin and fascial incisions to remove the large gallbladder. All ports were then removed the fascia at the umbilicus closed using interrupted 0 PDS suture. Skin was reapproximated using 4-0 nylon suture. His were applied and patient transferred to recovery room in stable condition. I attest to the content of the Intraoperative Record and any orders documented therein. Any exceptions are noted below.
[2017-02-25] MEDS: AMPICILLIN/SULBACTAM SOD INJ 1,500 MG in SODIUM CHLORIDE 0.9% 100ML 100 ML IV SCH ×2 (17:43→23:43)
[2017-02-25] MEDS: LACTATED RINGER'S 1000ML 1,000 ML IV SCH (17:43)
[2017-02-25] MEDS ORDERED: CEFOXITIN IV 1,000 MG in DEXTROSE 5% 50ML 50 ML IV SCH (18:00)
[2017-02-25] MEDS: HYDROCODONE/ACETAMOPHEN 5/325MG TAB PO PRN ×2 (22:22→23:23)
--- NOTE | 2017-02-25 22:37 | Anesthesiology Progress Note ---
Anesthesia Post Op Note Date & Time Feb 25, 2017 at 22:36 Vital Signs Pain Intensity: 3.0 Vital Signs Past 12 Hours Date Time Temp Pulse Resp B/P (MAP) Pulse Ox O2 Delivery O2 Flow Rate FiO2 02/25/17 19:15 37.6 99 16 153/94 (113) 94 Room Air 02/25/17 18:15 36.6 94 18 143/84 (103) 93 Room Air 02/25/17 17:42 36.7 89 18 156/90 (112) 97 Nasal Cannula 2.0 02/25/17 17:15 Nasal Cannula 2.0 02/25/17 17:15 Nasal Cannula 2.0 02/25/17 17:15 37.6 89 18 145/79 (101) 96 Nasal Cannula 2.0 02/25/17 17:00 88 18 157/86 96 Nasal Cannula 2 02/25/17 16:45 92 18 124/95 97 Nasal Cannula 2 02/25/17 16:35 36.4 92 18 149/95 97 Nasal Cannula 2 02/25/17 16:25 93 16 155/89 100 Oxymask 3 02/25/17 16:15 90 16 118/73 100 Oxymask 3 02/25/17 16:05 95 16 153/80 100 Oxymask 10 02/25/17 15:55 36.6 88 16 146/89 98 Oxymask 10 02/25/17 13:00 Room Air 02/25/17 13:00 37.6 92 20 140/83 (102) 94 Room Air 02/25/17 12:23 77 18 96 02/25/17 10:45 95 Room Air Notes Mental Status: alert / awake / arousable, participated in evaluation Pt Amnestic to Procedure: Yes Nausea / Vomiting: adequately controlled Pain: adequately controlled Airway Patency, RR, SpO2: stable & adequate BP & HR: stable & adequate Hydration State: stable & adequate Anesthetic Complications: no major complications apparent
[2017-02-26] MEDS: LACTATED RINGER'S 1000ML 1,000 ML IV SCH (01:48)
[2017-02-26 03:20] VITALS: BP 155/86; PULSE 87; TEMP 36.9; O2SAT 93
[2017-02-26] MEDS: AMPICILLIN/SULBACTAM SOD INJ 1,500 MG in SODIUM CHLORIDE 0.9% 100ML 100 ML IV SCH ×4 (05:29→23:58)
--- NOTE | 2017-02-26 06:05 | Surgery Progress Note ---
Surgery Progress Note Date of Service Feb 26, 2017. Subjective tolerating po- taking no pain med low grd fever Objective Vital Signs: Date Time Temp Pulse Resp B/P (MAP) Pulse Ox O2 Delivery O2 Flow Rate FiO2 02/26/17 03:20 36.9 87 17 155/86 (109) 93 Room Air 02/25/17 23:15 Room Air 02/25/17 23:05 37.9 104 18 151/92 (111) 94 Room Air 02/25/17 19:15 37.6 99 16 153/94 (113) 94 Room Air 02/25/17 18:15 36.6 94 18 143/84 (103) 93 Room Air 02/25/17 17:42 36.7 89 18 156/90 (112) 97 Nasal Cannula 2.0 02/25/17 17:15 Nasal Cannula 2.0 02/25/17 17:15 Nasal Cannula 2.0 02/25/17 17:15 37.6 89 18 145/79 (101) 96 Nasal Cannula 2.0 02/25/17 17:00 88 18 157/86 96 Nasal Cannula 2 02/25/17 16:45 92 18 124/95 97 Nasal Cannula 2 02/25/17 16:35 36.4 92 18 149/95 97 Nasal Cannula 2 02/25/17 16:25 93 16 155/89 100 Oxymask 3 02/25/17 16:15 90 16 118/73 100 Oxymask 3 02/25/17 16:05 95 16 153/80 100 Oxymask 10 02/25/17 15:55 36.6 88 16 146/89 98 Oxymask 10 02/25/17 13:00 Room Air 02/25/17 13:00 37.6 92 20 140/83 (102) 94 Room Air 02/25/17 12:23 77 18 96 02/25/17 10:45 95 Room Air 02/25/17 10:31 87 16 176/100 95 02/25/17 08:31 94 16 193/115 97 02/25/17 06:55 87 02/25/17 06:45 36.4 96 16 152/95 97 Room Air General Appearance: no apparent distress Respiratory/Chest: no respiratory distress Abdomen: + distended Incision(s): intact, drainage (expected DYLAN drainage) Laboratory Results: Results Past 24 Hours Test 02/25/17 07:07 02/25/17 07:09 02/26/17 05:46 Range/Units Lactic Acid Level 1.3 0.4-2.0 mmol/L White Blood Count 9.91 4.8-10.8 K/uL Red Blood Count 4.76 4.7-6.1 M/uL Hemoglobin 14.9 14.0-18.0 g/dL Hematocrit 40.3 42-52 % Mean Corpuscular Volume 84.7 80-100 fL Mean Corpuscular Hemoglobin 31.3 25-34 pg Mean Corpuscular Hemoglobin Concent 37.0 32-36 g/dl Platelet Count 160 130-400 K/uL Mean Platelet Volume 9.3 7.4-10.4 fL Neutrophils (%) (Auto) 85.0 % Lymphocytes (%) (Auto) 4.5 % Monocytes (%) (Auto) 10.0 % Eosinophils (%) (Auto) 0.1 % Basophils (%) (Auto) 0.1 % Neutrophils # (Auto) 8.42 1.4-6.5 K/uL Lymphocytes # (Auto) 0.45 1.2-3.4 K/uL Monocytes # (Auto) 0.99 0.11-0.59 K/uL Eosinophils # (Auto) 0.01 0-0.5 K/uL Basophils # (Auto) 0.01 0-0.2 K/uL RDW Standard Deviation 37.2 36.4-46.3 fL RDW Coefficient of Variation 12.0 11.5-14.5 % Immature Granulocyte % (Auto) 0.3 % Immature Granulocyte # (Auto) 0.03 0.00-0.02 K/uL Prothrombin Time 12.3 9.0-12.0 SECONDS Prothromb Time International Ratio 1.1 0.9-1.1 Sodium Level 133 136-145 mmol/L Potassium Level 3.5 3.5-5.1 mmol/L Chloride Level 96 98-107 mmol/L Carbon Dioxide Level 27 21-32 mmol/L Anion Gap 10.0 3-11 mmol/L Blood Urea Nitrogen 15 7-18 mg/dl Creatinine 0.94 0.60-1.40 mg/dl Est Creatinine Clear Calc Drug Dose 86.3 ml/min Estimated GFR () 95.5 Estimated GFR (Non- 82.4 BUN/Creatinine Ratio 16.1 10-20 Random Glucose 160 70-99 mg/dl Calcium Level 8.7 8.5-10.1 mg/dl Total Bilirubin 1.5 0.2-1 mg/dl Aspartate Amino Transf (AST/SGOT) 34 15-37 U/L Alanine Aminotransferase (ALT/SGPT) 88 12-78 U/L Alkaline Phosphatase 170 45-117 U/L Total Protein 7.3 6.4-8.2 gm/dl Albumin 3.2 3.4-5.0 gm/dl Globulin 4.1 2.5-4.0 gm/dl Albumin/Globulin Ratio 0.8 0.9-2 Lipase 397 73-393 U/L Assessment & Plan 02/26/17- s/p lap eleonora with findings of severe necrotizing cholecystitis doing well, drain in place, labs pending, cont Unasyn, for ERCP per GI team
[2017-02-26 06:43] LABS: HEMATOCRIT 38.3 % (42-52); MEAN CELL VOLUME 87.6 fL (80-100); MEAN CORPUSCULAR HEMOGLOBIN 29.7 pg (25-34); MEAN CORPUSCULAR HGB CONC 33.9 g/dl (32-36); MEAN PLATELET VOLUME 9.2 fL (7.4-10.4); PLATELET COUNT 168 K/uL (130-400); RED BLOOD COUNT 4.37 M/uL (4.7-6.1); WHITE BLOOD COUNT 11.73 K/uL (4.8-10.8)
[2017-02-26 07:23] LABS: BUN/CREATININE RATIO 11.7 (10-20); CALCIUM 8.4 mg/dl (8.5-10.1); CREATININE 0.96 mg/dl (0.60-1.40); MAGNESIUM 2.1 mg/dl (1.8-2.4); POTASSIUM 3.6 mmol/L (3.5-5.1)
[2017-02-26 07:26] LABS: ALB/GLOB RATIO 0.7 (0.9-2); PHOSPHORUS 2.6 mg/dl (2.5-4.9)
--- NOTE | 2017-02-26 07:28 | Anesthesiology Progress Note ---
Anesthesia Post Op Note Date & Time Feb 26, 2017 at 07:27 Vital Signs Vital Signs Past 12 Hours Date Time Temp Pulse Resp B/P (MAP) Pulse Ox O2 Delivery O2 Flow Rate FiO2 02/26/17 03:20 36.9 87 17 155/86 (109) 93 Room Air 02/25/17 23:15 Room Air 02/25/17 23:05 37.9 104 18 151/92 (111) 94 Room Air Notes Mental Status: alert / awake / arousable, participated in evaluation Pt Amnestic to Procedure: Yes Nausea / Vomiting: adequately controlled Pain: adequately controlled Airway Patency, RR, SpO2: stable & adequate BP & HR: stable & adequate Hydration State: stable & adequate Anesthetic Complications: no major complications apparent
[2017-02-26 07:30] VITALS: BP 146/84; PULSE 94; TEMP 37.2; O2SAT 95
[2017-02-26] MEDS: HEPARIN SOD 5000 UNIT/0.5 ML CARP SQ SCH ×2 (08:10→21:05)
[2017-02-26 09:37] VITALS: O2SAT 95
[2017-02-26] MEDS ORDERED: NURSING VERBAL MED ORDER ONE (11:30)
[2017-02-26 11:53] VITALS: BP 156/88; PULSE 95; TEMP 37.7; O2SAT 93
--- NOTE | 2017-02-26 12:03 | Gastroenterology Progress Note ---
Progress Note Date of Service: Feb 26, 2017 Subjective Pt evaluation today including: conversation w/ patient, physical exam, chart review, lab review, review of inpatient medication list Pt s/p lap eleonora yesterday, feels well, had mild febrile episodes yesterday up to 37.6, no longer having chills. Denies any abd pain, n/v. Review of Systems Constitutional: + fever (mild 37.6), No chills Respiratory: No cough, No shortness of breath Cardiac: No chest pain Abdomen: No pain, No nausea, No vomiting Skin: No rash, No itch, No jaundice Medications Current Inpatient Medications Medications (Trade) Dose Ordered Sig/Melody Route Start Time Stop Time Status Last Admin Dose Admin Hydromorphone HCl (Dilaudid Inj) 0.5 mg Q3H PRN IV 02/25/17 10:45 03/11/17 10:44 Hydromorphone HCl (Dilaudid Inj) 1 mg Q3H PRN IV 02/25/17 10:45 03/11/17 10:44 Promethazine HCl 25 mg/Sodium Chloride 51 ml @ 204 mls/hr Q6H PRN IV 02/25/17 10:45 03/27/17 10:44 Ondansetron HCl (Zofran Inj) 4 mg Q6H PRN IV 02/25/17 10:45 03/27/17 10:44 Promethazine HCl 12.5 mg/Sodium Chloride 50.5 ml @ 204 mls/hr Q6H PRN IV 02/25/17 11:00 03/27/17 10:59 Indomethacin (Indocin Suppository) 100 mg PREOP [place] 02/27/17 07:00 02/27/17 18:00 Hydralazine HCl (HydrALAZINE INJ) 10 mg Q6 PRN IV. 02/25/17 14:15 03/27/17 14:14 Ampicillin Sodium/ Sulbactam Sodium 1500 mg/Sodium Chloride 104 ml @ 200 mls/hr Q6H IV 02/25/17 17:30 03/07/17 17:29 02/26/17 11:31 200 MLS/HR Acetaminophen/ Hydrocodone Bitart (Ottosen 5/325 Tab) 1 tab Q4 PRN PO 02/25/17 15:45 03/11/17 15:44 02/25/17 23:23 1 TAB Acetaminophen/ Hydrocodone Bitart (Ottosen 5/325 Tab) 2 tab Q4 PRN PO 02/25/17 15:45 03/11/17 15:44 Heparin Sodium (Porcine) (Heparin Sq 5000 Unit/0.5ml) 5,000 unit Q12H SQ 02/26/17 08:00 02/26/17 22:00 02/26/17 08:10 5,000 UNIT Objective Vital Signs Date Time Temp Pulse Resp B/P (MAP) Pulse Ox O2 Delivery O2 Flow Rate FiO2 02/26/17 11:53 37.7 95 18 156/88 (110) 93 Room Air 02/26/17 09:37 95 Room Air 02/26/17 07:35 Room Air 02/26/17 07:30 37.2 94 18 146/84 (104) 95 Room Air 02/26/17 03:20 36.9 87 17 155/86 (109) 93 Room Air 02/25/17 23:15 Room Air 02/25/17 23:05 37.9 104 18 151/92 (111) 94 Room Air 02/25/17 19:15 37.6 99 16 153/94 (113) 94 Room Air 02/25/17 18:15 36.6 94 18 143/84 (103) 93 Room Air 02/25/17 17:42 36.7 89 18 156/90 (112) 97 Nasal Cannula 2.0 02/25/17 17:15 Nasal Cannula 2.0 02/25/17 17:15 Nasal Cannula 2.0 02/25/17 17:15 37.6 89 18 145/79 (101) 96 Nasal Cannula 2.0 02/25/17 17:00 88 18 157/86 96 Nasal Cannula 2 02/25/17 16:45 92 18 124/95 97 Nasal Cannula 2 02/25/17 16:35 36.4 92 18 149/95 97 Nasal Cannula 2 02/25/17 16:25 93 16 155/89 100 Oxymask 3 02/25/17 16:15 90 16 118/73 100 Oxymask 3 02/25/17 16:05 95 16 153/80 100 Oxymask 10 02/25/17 15:55 36.6 88 16 146/89 98 Oxymask 10 02/25/17 13:00 Room Air 02/25/17 13:00 37.6 92 20 140/83 (102) 94 Room Air 02/25/17 12:23 77 18 96 Physical Exam General Appearance: WD/WN, no apparent distress Eyes: normal inspection, PERRL, EOMI Neck: supple, no JVD, trachea midline Respiratory/Chest: normal breath sounds, no respiratory distress, no accessory muscle use Cardiovascular: regular rate, rhythm, no gallop, no murmur Abdomen: normal bowel sounds, non tender, soft, + pertinent finding (DYLAN drain to RUQ area, scant serosangenous fluid) Extremities: normal inspection, no pedal edema, no calf tenderness Neurologic/Psych: alert, normal mood/affect, oriented x 3 Skin: normal color, no jaundice, no rash Laboratory Results Last 24 Hours Test 02/26/17 05:46 White Blood Count 11.73 K/uL Red Blood Count 4.37 M/uL Hemoglobin 13.0 g/dL Hematocrit 38.3 % Mean Corpuscular Volume 87.6 fL Mean Corpuscular Hemoglobin 29.7 pg Mean Corpuscular Hemoglobin Concent 33.9 g/dl RDW Standard Deviation 40.6 fL RDW Coefficient of Variation 12.5 % Platelet Count 168 K/uL Mean Platelet Volume 9.2 fL Sodium Level 136 mmol/L Potassium Level 3.6 mmol/L Chloride Level 100 mmol/L Carbon Dioxide Level 27 mmol/L Anion Gap 9.0 mmol/L Blood Urea Nitrogen 11 mg/dl Creatinine 0.96 mg/dl Est Creatinine Clear Calc Drug Dose 84.5 ml/min Estimated GFR () 93.1 Estimated GFR (Non- 80.3 BUN/Creatinine Ratio 11.7 Random Glucose 111 mg/dl Calcium Level 8.4 mg/dl Phosphorus Level 2.6 mg/dl Magnesium Level 2.1 mg/dl Total Bilirubin 1.5 mg/dl Direct Bilirubin 0.6 mg/dl Aspartate Amino Transf (AST/SGOT) 43 U/L Alanine Aminotransferase (ALT/SGPT) 77 U/L Alkaline Phosphatase 143 U/L Total Protein 6.3 gm/dl Albumin 2.5 gm/dl Globulin 3.8 gm/dl Albumin/Globulin Ratio 0.7 Lipase 165 U/L Assessment and Plan Patient is a 67 year old male w mid abd pain since last , no fever but chills. Labs showed elevated LFTs, Lipase, imaging w u/s and CT abd/pelvis concerning for acute cholecystitis and possible CBD stone, + mild intra/ extrahepatic ductal dilation. CBD measured 8mm. He is day 1 s/p lap cholecystectomy - found to have severe necrotizing cholecystitis. Feels well, mildly febrile yesterday w temp to 37.6, currently on Unasyn IV antibx. Denies any abd pain, n/v Plans - NPO after midnight for ERCP tomorrow at 2PM - Diet advancement per Surgery otherwise - Agree w antibx and IVF support Late entry: Patient was seen and examined with Kalie Hernandez on 02/26. Her note reflects our findings and plan.
--- NOTE | 2017-02-26 13:46 | Progress Note ---
Subjective Date of Service: Feb 26, 2017. Subjective Pt evaluation today including: conversation w/ patient, physical exam, chart review, lab review, review of studies, conversation w/ senior solutions workflow consultant, review of inpatient medication list Pt denies any pain or nausea Resting comfortably in bed Drain in place No acute events overnight Problem List Medical Problems: (1) Abdominal pain Status: Acute (2) Acute cholecystitis Status: Acute Review of Systems Constitutional: No fever, No chills, No sweats, No weight loss, No weakness ENT: No hearing loss, No unusual epistaxis, No nasal symptoms, No sore throat Respiratory: No cough, No sputum, No wheezing, No shortness of breath, No dyspnea on exertion Cardiac: No chest pain, No orthopnea, No PND, No edema, No claudication Abdomen: No pain, No nausea, No vomiting, No diarrhea, No constipation Musculoskeletal: No joint pain, No muscle pain, No swelling, No calf pain Male : No dysuria, No urinary frequency, No incontinence, No slowing stream Neurologic: No memory loss, No paralysis, No weakness, No numbness/tingling Psychiatric: No depression symptoms, No anhedonism, No anxiety, No insomnia Endo: No fatigue, No excessive thirst, No excessive urination Skin: No rash, No itch Objective Vital Signs Date Time Temp Pulse Resp B/P (MAP) Pulse Ox O2 Delivery O2 Flow Rate FiO2 02/26/17 11:53 37.7 95 18 156/88 (110) 93 Room Air 02/26/17 09:37 95 Room Air 02/26/17 07:35 Room Air 02/26/17 07:30 37.2 94 18 146/84 (104) 95 Room Air 02/26/17 03:20 36.9 87 17 155/86 (109) 93 Room Air 02/25/17 23:15 Room Air 02/25/17 23:05 37.9 104 18 151/92 (111) 94 Room Air 02/25/17 19:15 37.6 99 16 153/94 (113) 94 Room Air 02/25/17 18:15 36.6 94 18 143/84 (103) 93 Room Air 02/25/17 17:42 36.7 89 18 156/90 (112) 97 Nasal Cannula 2.0 02/25/17 17:15 Nasal Cannula 2.0 02/25/17 17:15 Nasal Cannula 2.0 02/25/17 17:15 37.6 89 18 145/79 (101) 96 Nasal Cannula 2.0 02/25/17 17:00 88 18 157/86 96 Nasal Cannula 2 02/25/17 16:45 92 18 124/95 97 Nasal Cannula 2 02/25/17 16:35 36.4 92 18 149/95 97 Nasal Cannula 2 02/25/17 16:25 93 16 155/89 100 Oxymask 3 02/25/17 16:15 90 16 118/73 100 Oxymask 3 02/25/17 16:05 95 16 153/80 100 Oxymask 10 02/25/17 15:55 36.6 88 16 146/89 98 Oxymask 10 Physical Exam General Appearance: WD/WN, no apparent distress Eyes: normal inspection, PERRL, EOMI, sclerae normal Neck: supple, no adenopathy, thyroid normal, no JVD Respiratory/Chest: chest non-tender, lungs clear, normal breath sounds, no respiratory distress Cardiovascular: regular rate, rhythm, no edema, no gallop, no JVD Abdomen: normal bowel sounds, non tender, soft, no organomegaly Neurologic/Psychiatric: no motor/sensory deficits, alert, normal mood/affect, oriented x 3 Laboratory Results Last 24 Hours Test 02/26/17 05:46 White Blood Count 11.73 K/uL Red Blood Count 4.37 M/uL Hemoglobin 13.0 g/dL Hematocrit 38.3 % Mean Corpuscular Volume 87.6 fL Mean Corpuscular Hemoglobin 29.7 pg Mean Corpuscular Hemoglobin Concent 33.9 g/dl RDW Standard Deviation 40.6 fL RDW Coefficient of Variation 12.5 % Platelet Count 168 K/uL Mean Platelet Volume 9.2 fL Sodium Level 136 mmol/L Potassium Level 3.6 mmol/L Chloride Level 100 mmol/L Carbon Dioxide Level 27 mmol/L Anion Gap 9.0 mmol/L Blood Urea Nitrogen 11 mg/dl Creatinine 0.96 mg/dl Est Creatinine Clear Calc Drug Dose 84.5 ml/min Estimated GFR () 93.1 Estimated GFR (Non- 80.3 BUN/Creatinine Ratio 11.7 Random Glucose 111 mg/dl Calcium Level 8.4 mg/dl Phosphorus Level 2.6 mg/dl Magnesium Level 2.1 mg/dl Total Bilirubin 1.5 mg/dl Direct Bilirubin 0.6 mg/dl Aspartate Amino Transf (AST/SGOT) 43 U/L Alanine Aminotransferase (ALT/SGPT) 77 U/L Alkaline Phosphatase 143 U/L Total Protein 6.3 gm/dl Albumin 2.5 gm/dl Globulin 3.8 gm/dl Albumin/Globulin Ratio 0.7 Lipase 165 U/L Assessment and Plan Mr. Bacon is a 67 y/o male with an unremarkable PMHx who was found to have acute cholecystitis due to cholelithiasis and biliary sludge. MRCP suggests choledocholithiases in the proximal CBD. Acute Necrotizing Cholecystitis with Cholelithiasis/Biliary Sludge and Choledocholithiasis: - POD # 1 Lap cholecystectomy - Pain resolved - ERCP scheduled 02/27 - DUe to likely necrotizing cholecystiti, continue antibx of unasyn 1500 mg q 6 hrs - GI and general surgery consultation appreciated Hypertensive BPs: reamains uncontrolled - No documented history of hypertension and not on any medications - may possibly be pain response vs undiagnosed - Hydralazine PRN, if worsening will add lisinopril but will hold off until ERCP completed - Will continue to monitor
--- NOTE | 2017-02-26 14:57 | Medical Student: [facility] ---
Med Student History & Physical Date & Time of Service: Feb 26, 2017 at 14:40 Chief Complaint: Acute Cholecystitis, Choledocholithiasis Primary Care Physician: Brent Wilson M.D. History of Present Illness Source: patient, family (extended family at bedside), hospital records Randy Bacon presented to the ED complaining of right upper quadrant abdominal pain that had been worsening for previous 24-48 hours. Patient state abdominal symptoms began 1 week ago with associated symptom of vomiting and intermittent fever. He states that he was evaluated in the ED with CT with contrast and ultrasound, which showed acute cholecystitis, possible choledocholithiasis, and biliary sludge. He was initially treated with IV fluids, Ampicillin Sodium/ Sulbactam Sodium 1500 mg/Sodium Chloride. Yesterday his MRCP showed a filling defect concerning for choledocholithiasis, and Dr. Bañuelos performed a laparoscopic cholecystectomy. Patient reports he has an ERCP scheduled for at 2pm. Currently the patient denies any complaints and is in good spirits. He states that his abdomen has some pressure (1/10 on pain scale), but feels good, noting a recent walking lap around the floor. Past Medical/Surgical History Medical Problems: (1) Abdominal pain Status: Acute (2) Acute cholecystitis Status: Acute Social History Smoking Status: Former Smoker Smokeless Tobacco Use: No Drug Use: none Marital Status: Occupational Status: retired Allergies Coded Allergies: No Known Allergies (Unverified , 02/25/17) Medications No Active Prescriptions or Reported Meds Review of Systems Constitutional: No fever, No chills Eyes: No eye pain, No redness ENT: No hearing loss, No sore throat Respiratory: No cough, No shortness of breath Cardiovascular: No chest pain, No edema Abdomen: + pain (post-op pain minimal, 1/10), No nausea (currently resolved), No vomiting, No diarrhea, No constipation Musculoskeletal: No joint pain, No muscle pain, No swelling Genitourinary - Male: No urinary frequency, No urinary urgency Neurologic: No memory loss, No weakness Psychiatric: No depression symptoms, No anxiety Endocrine: No excessive thirst, No excessive urination Hematologic / Lymphatic: No abnormal bleeding/bruising, No night sweats Integumentary: No rash, No itch Physical Exam Vital Signs (24 Hours) Date Time Temp Pulse Resp B/P (MAP) Pulse Ox O2 Delivery O2 Flow Rate FiO2 02/26/17 11:53 37.7 95 18 156/88 (110) 93 Room Air 02/26/17 09:37 95 Room Air 02/26/17 07:35 Room Air 02/26/17 07:30 37.2 94 18 146/84 (104) 95 Room Air 02/26/17 03:20 36.9 87 17 155/86 (109) 93 Room Air 02/25/17 23:15 Room Air 02/25/17 23:05 37.9 104 18 151/92 (111) 94 Room Air 02/25/17 19:15 37.6 99 16 153/94 (113) 94 Room Air 02/25/17 18:15 36.6 94 18 143/84 (103) 93 Room Air 02/25/17 17:42 36.7 89 18 156/90 (112) 97 Nasal Cannula 2.0 02/25/17 17:15 Nasal Cannula 2.0 02/25/17 17:15 Nasal Cannula 2.0 02/25/17 17:15 37.6 89 18 145/79 (101) 96 Nasal Cannula 2.0 02/25/17 17:00 88 18 157/86 96 Nasal Cannula 2 02/25/17 16:45 92 18 124/95 97 Nasal Cannula 2 02/25/17 16:35 36.4 92 18 149/95 97 Nasal Cannula 2 02/25/17 16:25 93 16 155/89 100 Oxymask 3 02/25/17 16:15 90 16 118/73 100 Oxymask 3 02/25/17 16:05 95 16 153/80 100 Oxymask 10 02/25/17 15:55 36.6 88 16 146/89 98 Oxymask 10 General Appearance: WD/WN, no apparent distress Head: atraumatic Eyes: normal inspection, sclerae normal ENT: normal ENT inspection, hearing grossly normal Neck: supple, no JVD Respiratory/Chest: chest non-tender, lungs clear, normal breath sounds, no respiratory distress, no accessory muscle use Cardiovascular: regular rate, rhythm, no edema, no JVD Abdomen/GI: soft, + tenderness (08/27 post-op tenderness), + pertinent finding ( dressings from lap eleonora surgery yesterday, dry, except for small amount of drainage around tube) Extremities/Musculoskelatal: normal inspection, no calf tenderness, no pedal edema, normal range of motion Neurologic/Psych: alert, normal mood/affect, oriented x 3 Skin: normal color, warm/dry, + pertinent finding (dressings on abdomen) Diagnostics Laboratory Results Results Past 24 Hours Test 02/26/17 05:46 Range/Units White Blood Count 11.73 4.8-10.8 K/uL Red Blood Count 4.37 4.7-6.1 M/uL Hemoglobin 13.0 14.0-18.0 g/dL Hematocrit 38.3 42-52 % Mean Corpuscular Volume 87.6 80-100 fL Mean Corpuscular Hemoglobin 29.7 25-34 pg Mean Corpuscular Hemoglobin Concent 33.9 32-36 g/dl RDW Standard Deviation 40.6 36.4-46.3 fL RDW Coefficient of Variation 12.5 11.5-14.5 % Platelet Count 168 130-400 K/uL Mean Platelet Volume 9.2 7.4-10.4 fL Sodium Level 136 136-145 mmol/L Potassium Level 3.6 3.5-5.1 mmol/L Chloride Level 100 98-107 mmol/L Carbon Dioxide Level 27 21-32 mmol/L Anion Gap 9.0 3-11 mmol/L Blood Urea Nitrogen 11 7-18 mg/dl Creatinine 0.96 0.60-1.40 mg/dl Est Creatinine Clear Calc Drug Dose 84.5 ml/min Estimated GFR () 93.1 Estimated GFR (Non- 80.3 BUN/Creatinine Ratio 11.7 10-20 Random Glucose 111 70-99 mg/dl Calcium Level 8.4 8.5-10.1 mg/dl Phosphorus Level 2.6 2.5-4.9 mg/dl Magnesium Level 2.1 1.8-2.4 mg/dl Total Bilirubin 1.5 0.2-1 mg/dl Direct Bilirubin 0.6 0-0.2 mg/dl Aspartate Amino Transf (AST/SGOT) 43 15-37 U/L Alanine Aminotransferase (ALT/SGPT) 77 12-78 U/L Alkaline Phosphatase 143 45-117 U/L Total Protein 6.3 6.4-8.2 gm/dl Albumin 2.5 3.4-5.0 gm/dl Globulin 3.8 2.5-4.0 gm/dl Albumin/Globulin Ratio 0.7 0.9-2 Lipase 165 73-393 U/L Diagnostic Radiology CT and U/S in ED showed diagnosis of acute cholecystitis and choledocholithiasis , as well as biliary sludge. MRCP showed filling defect concerning for choledocholithiasis. CXR normal Impression Assessment and Plan Assessment: Randy Bacon is a 67 male, with no significant PMHx, who presented with worsening acute abdominal pain and nausea for 1 week. Patient was diagnosed with acute cholecystitis with possible common bile duct stone and biliary sludge by U/S and CT with contrast. His MRCP confirmed a filling defect suggestion diagnosis of choledocholithiasis. Plan: 1) Acute cholecystitis/Choledocholithiasis with biliary sludge - Laparoscopic cholecystectomy on 02/25/2017 - ERCP scheduled for 02/27/2017 - Consult with GI and general surgery - Control patient's pain (currently 1/10) and nausea (currently resolved) - Continue antibiotic coverage (Ampicillin Sodium/Sulbactam Sodium 1500 mg/ Sodium Chloride) 2) High BP, without history of HTN - Trend BP's during recovery from surgery (155/86, 146/84, 156/88 most recent) - Consider prescribing lisinopril and follow-up with PCP after ERCP completed. Advanced Directives Existing Living Will: Yes Existing Power of Director Of Acquisition Marketing: Yes Resuscitation Status FULL RESUSCITATION DVT Prophylaxis unfractionated heparin SQ Social Service Consult None Apply
[2017-02-26 15:31] VITALS: BP 151/84; PULSE 96; TEMP 36.5; O2SAT 94
[2017-02-26 22:57] VITALS: BP 131/72; PULSE 85; TEMP 38; O2SAT 92
[2017-02-27] VITALS (11 sets, daily range): BP systolic 135–152; BP diastolic 83–91; PULSE 64–83; TEMP 36.3–38.1; O2SAT 94–98
[2017-02-27] MEDS: AMPICILLIN/SULBACTAM SOD INJ 1,500 MG in SODIUM CHLORIDE 0.9% 100ML 100 ML IV SCH ×4 (05:01→23:12)
[2017-02-27] MEDS ORDERED: INDOMETHACIN 50 MG SUPP PR SCH (07:00)
[2017-02-27] MEDS ORDERED: HYDR-5688 PO (07:04)
[2017-02-27] MEDS ORDERED: AMOX875T PO (07:04)
--- NOTE | 2017-02-27 07:07 | Discharge Instructions ---
Discharge Instructions Date of Service Feb 27, 2017. Admission Reason for Admission: Acute Cholecystitis, Choledocholithiasis Discharge Discharge Diagnosis / Problem: acute cholecystitis, choledocholithiasis Discharge Goals Goal(s): Decrease discomfort, Improve function, Improve disease control Activity Recommendations Activity Limitations: as noted below Lifting Limitations: no more than 25 pounds Exercise/Sports Limitations: until after follow-up appointment May Resume Sexual Activity: when tolerated Shower/Bathe: tomorrow Driving or Machine Use: resume 3 days after discharge SPECIAL CARE INSTRUCTIONS: * Cover incisions and change daily for comfort/drainage. * Empty drain 2-3 times per day and record. * May use ibuprofen for pain as tolerated. * Expect some swelling and bruising. Call your doctor if: * Temperature above 101 degrees * Pain not relieved by pain medicine ordered * There is increased drainage or redness from any incision * You have any unanswered questions or concerns [phone]. FOLLOW UP VISIT: If not already scheduled, please call the office for a follow-up visit. for Fri or 03/03 or - drain removal- please call office OFFICE PHONE NUMBER: Dr. Bañuelos Office . Current Hospital Diet Patient's current hospital diet: Regular Diet Discharge Diet Recommended Diet: Regular Diet Procedures Procedures Performed: Laparoscopic Cholecystectomy Pending Studies Studies pending at discharge: no Laboratory Results Lipid Panel Test 02/24/17 12:34 Range/Units Triglycerides Level 144 0-150 mg/dl Cholesterol Level 168 0-200 mg/dl HDL Cholesterol 34 mg/dl Cholesterol/HDL Ratio 4.9 LDL Cholesterol, Calculated 105 mg/dl Medical Emergencies . Who to Call and When: Medical Emergencies: If at any time you feel your situation is an emergency, please call 911 immediately. . Non-Emergent Contact Non-Emergency issues call your: Primary Care Provider, Surgeon . "Provider Documentation" section prepared by Ricardo Bañuelos. . VTE Core Measure Inpt VTE Proph given/why not?: Unfractionated heparin SQ, SCD's
--- NOTE | 2017-02-27 07:14 | Surgery Progress Note ---
Surgery Progress Note Date of Service Feb 27, 2017. Subjective feels ok, low grd fever drain- serous, minimal Objective Vital Signs: Date Time Temp Pulse Resp B/P (MAP) Pulse Ox O2 Delivery O2 Flow Rate FiO2 02/27/17 05:33 37.4 02/27/17 02:47 37.8 02/27/17 00:12 38.1 02/27/17 00:05 Room Air 02/26/17 22:57 38.0 85 16 131/72 (91) 92 Room Air 02/26/17 16:00 Room Air 02/26/17 15:31 36.5 96 18 151/84 (106) 94 Room Air 02/26/17 11:53 37.7 95 18 156/88 (110) 93 Room Air 02/26/17 09:37 95 Room Air 02/26/17 07:35 Room Air 02/26/17 07:30 37.2 94 18 146/84 (104) 95 Room Air General Appearance: no apparent distress Respiratory/Chest: no respiratory distress Abdomen: soft Incision(s): intact Assessment & Plan 02/27/17- for ERCP later today- continue Unasyn, monitor temp leave drain. check CXR, U/A 02/26/17- s/p lap eleonora with findings of severe necrotizing cholecystitis doing well, drain in place, labs pending, cont Unasyn, for ERCP per GI team 02/26/17- s/p lap eleonora with findings of severe necrotizing cholecystitis doing well, drain in place, labs pending, cont Unasyn, for ERCP per GI team
--- NOTE | 2017-02-27 08:05 | Medical Student: [facility] ---
Med Student Progress Note Date of Service Feb 27, 2017. Subjective Pt evaluation today including: conversation w/ patient, chart review, lab review Pain: patient denies PO Intake: nothing by mouth since midnight Voiding: no voiding problems Randy Bacon is a 67 yo male, with diagnosis of acute cholecystitis and choledocholithiasis, who presents 2 days post-op from laparoscopic cholecystectomy. Patient currently denies any pain, even around incision sites. He states his dressings were changed this morning and there has been minimal clear drainage. Patient states he slept well overnight, and is ready to go home. He reports his ERCP to remove his stone in his common bile duct is still scheduled for 2pm this afternoon. Review of Systems Constitutional: No fever, No chills, No sweats Eyes: No eye pain, No redness ENT: No hearing loss, No nasal symptoms Respiratory: No cough, No shortness of breath Cardiac: No chest pain, No edema Abdomen: No pain (no pain at incision sites), No nausea, No vomiting, No diarrhea Male : No dysuria, No incontinence Neurologic: No memory loss, No weakness Psychiatric: No depression symptoms, No anxiety Skin: + see HPI Objective Vital Signs Date Time Temp Pulse Resp B/P (MAP) Pulse Ox O2 Delivery O2 Flow Rate FiO2 02/27/17 05:33 37.4 02/27/17 02:47 37.8 02/27/17 00:12 38.1 02/27/17 00:05 Room Air 02/26/17 22:57 38.0 85 16 131/72 (91) 92 Room Air 02/26/17 16:00 Room Air 02/26/17 15:31 36.5 96 18 151/84 (106) 94 Room Air 02/26/17 11:53 37.7 95 18 156/88 (110) 93 Room Air 02/26/17 09:37 95 Room Air Physical Exam General Appearance: WD/WN, no apparent distress, + pertinent finding (low grade fever) ENT: normal ENT inspection, hearing grossly normal Neck: supple, no adenopathy Respiratory/Chest: chest non-tender, lungs clear, normal breath sounds, no respiratory distress, no accessory muscle use Cardiovascular: regular rate, rhythm, no edema, no murmur Abdomen: normal bowel sounds, non tender, soft, + pertinent finding (clean dressings with drainage tube in place (changed at 0530)) Extremities: normal range of motion, non-tender, normal inspection, no pedal edema, normal capillary refill Neurologic/Psychiatric: alert, normal mood/affect (good mood), oriented x 3 Skin: normal color, warm/dry, + pertinent finding (dressings on 5 different areas of right side of abdomen) Medications Medications Administered Medications (Trade) Dose Ordered Sig/Melody Route Start Time Stop Time Status Last Admin Dose Admin Morphine Sulfate (MoRPHine SULFATE INJ) 4 mg NOW STAT IV 02/25/17 07:06 02/25/17 07:08 DC 02/25/17 07:15 4 MG Ondansetron HCl (Zofran Inj) 4 mg NOW STAT IV 02/25/17 07:06 02/25/17 07:08 DC 02/25/17 07:16 4 MG Pantoprazole Sodium 40 mg/ Syringe 10 ml @ 5 mls/min NOW ONCE IV 02/25/17 07:15 02/25/17 07:16 DC 02/25/17 07:47 5 MLS/MIN Sodium Chloride 1,000 ml @ 250 mls/hr Q4H STAT IV 02/25/17 07:06 02/25/17 11:05 DC 02/25/17 07:15 250 MLS/HR Morphine Sulfate (MoRPHine SULFATE INJ) 4 mg NOW STAT IV 02/25/17 08:11 02/25/17 08:12 DC 02/25/17 08:16 4 MG Hydromorphone HCl (Dilaudid Inj) 1 mg NOW STAT IV 02/25/17 08:52 02/25/17 09:03 DC 02/25/17 09:26 1 MG Cefoxitin Sodium (Mefoxin 2000mg/ 60 ml D5W) 2,000 mg NOW STAT IV 02/25/17 10:13 02/25/17 10:14 DC 02/25/17 10:50 2,000 MG Lactated Ringer's 1,000 ml @ 125 mls/hr Q8H IV 02/25/17 13:30 02/25/17 17:15 DC 02/25/17 13:18 125 MLS/HR Bupivacaine HCl (Marcaine 0.5% MPF Inj) 30 ml STK-MED ONCE .ROUTE 02/25/17 14:25 02/25/17 14:26 DC 7/11/17 15:30 12 ML Ampicillin Sodium/ Sulbactam Sodium 1500 mg/Sodium Chloride 104 ml @ 200 mls/hr Q6H IV 02/25/17 17:30 03/07/17 17:29 02/27/17 05:01 200 MLS/HR Acetaminophen/ Hydrocodone Bitart (Corbin 5/325 Tab) 1 tab Q4 PRN PO 02/25/17 15:45 03/11/17 15:44 02/25/17 23:23 1 TAB Lactated Ringer's 1,000 ml @ 50 mls/hr Q20H IV 02/25/17 15:45 02/26/17 11:36 DC 02/26/17 01:48 100 MLS/HR Heparin Sodium (Porcine) (Heparin Sq 5000 Unit/0.5ml) 5,000 unit Q12H SQ 02/26/17 08:00 02/26/17 22:00 DC 02/26/17 21:05 5,000 UNIT Assessment and Plan Assessment and Plan: Assessment: Randy Bacon is a 67 male, with no significant PMHx, who presented with worsening acute abdominal pain and nausea for 1 week. Diagnosis of acute cholecystitis with possible common bile duct stone and biliary sludge was made by U/S and CT with contrast, with treatment of laparoscopic cholecystectomy on . Diagnosis of choledocholithiasis confirmed by MRCP, and patient will undergo ERCP for removal of stone today. Plan: 1) Acute cholecystitis/Choledocholithiasis with biliary sludge - Laparoscopic cholecystectomy on 02/25/2017 - ERCP scheduled for 02/27/2017 at 2pm - Consult with GI and general surgery - Control patient's pain (currently resolved on no medication) and nausea ( currently resolved) - Continue antibiotic coverage (Ampicillin Sodium/Sulbactam Sodium 1500 mg/ Sodium Chloride, on 2nd day) - Trend patient's low-grade fever (38.0, 38.1, 37.8, 37.4 overnight) - Trend WBCs (9.91 on 02/25, 11.73 on 02/26, 10.59 on 02/27) 2) High BP, without history of HTN - Trend BP's during recovery from surgery (131/72, 151/84, 156/88 most recent) - Consider prescribing lisinopril and follow-up with PCP after ERCP completed.
--- NOTE | 2017-02-27 08:25 | DIAGNOSTIC IMAGING REPORT ---
CHEST ONE VIEW PORTABLE CLINICAL HISTORY: fever COMPARISON STUDY: 02/25/2017 FINDINGS: The heart is enlarged. There is no failure. Since the prior study the patient has developed right infrahilar airspace opacities, atelectatic versus inflammatory. Linear opacities at the left lung base are felt to be atelectatic.[ IMPRESSION: Right infrahilar opacity, atelectatic versus inflammatory. Clinical and radiographic follow-up is recommended Electronically signed by: Yosvany Esteban M.D. 02/27/2017 8:23 AM Dictated Date/Time: 02/27/2017 8:22 AM
[2017-02-27 08:55] LABS: BASO % 0.3 %; BASO ABS # 0.03 K/uL (0-0.2); COMPLETE YES; EOS % 0.8 %; HEMATOCRIT 36.6 % (42-52); IG% 0.6 %; LYMPH ABS # 1.06 K/uL (1.2-3.4); MEAN CELL VOLUME 88.2 fL (80-100); MEAN CORPUSCULAR HEMOGLOBIN 32.3 pg (25-34); MEAN CORPUSCULAR HGB CONC 36.6 g/dl (32-36); MEAN PLATELET VOLUME 9.3 fL (7.4-10.4); MONO % 7.2 %; NEUT % 81.1 %; PLATELET COUNT 215 K/uL (130-400); RED BLOOD COUNT 4.15 M/uL (4.7-6.1); WHITE BLOOD COUNT 10.59 K/uL (4.8-10.8)
[2017-02-27 09:41] LABS: BUN/CREATININE RATIO 16.2 (10-20); CALCIUM 8.1 mg/dl (8.5-10.1); CREATININE 0.92 mg/dl (0.60-1.40); POTASSIUM 3.6 mmol/L (3.5-5.1)
[2017-02-27 09:43] LABS: ALB/GLOB RATIO 0.5 (0.9-2)
--- NOTE | 2017-02-27 09:50 | Progress Note ---
Progress Note Date of Service Feb 27, 2017. (Kalie Hernandez CRNP) Progress Note Patient is a 67 year old male w severe necrotizing cholecystitis day 2 s/p lap cholecystectomy. He is still febrile up to 38.1 ovenight, currently on Unasyn IV antibx. Admission MRCP concerning for distal CBD stone. He has been NPO and scheduled for ERCP this afternoon by Dr. Bonds in OR. VS, Labs reviewed (CMP pending). Exam: - General: AAOx3 in NAD - Respiratory: Clear except slightly diminished bilateral bases, no signs of respiratory distress or accessory muscles use noted - Abd: Soft, non tender, BS hypoactive. Surgical dressing on R side abd in place ; DYLAN drain w/o discharge noted - Ext: No edema noted. Plans - Continue IV antibx - GI will give further recs after ERCP completed today. (Kalie Hernandez, FÉLIX) Late entry: Patient was seen and examined with Kalie Hernandez on 02/27. Her note reflects our findings and plan. (Juanita Harris, DO)
[2017-02-27 10:23] LABS: URINE APPEARANCE CLEAR (CLEAR); URINE BILIRUBIN NEG (NEG); URINE COLOR YELLOW; URINE NITRITE NEG (NEG); URINE PH 7.5 (4.5-7.5); URINE SPECIFIC GRAVITY 1.016 (1.000-1.030); UROBILINOGEN POS (NEG)
[2017-02-27 10:28] LABS: MANUAL MICROSCOPIC REQUIRED? NO; REVIEW REQ? NO; SULFASALICYLIC ACID NEG (NEG)
--- NOTE | 2017-02-27 12:32 | Progress Note ---
Subjective Date of Service: Feb 27, 2017. Subjective Pt evaluation today including: conversation w/ patient, physical exam, chart review, lab review, review of studies, review of inpatient medication list Pt resting comfortably in bed No abd pain, N/V/D Minimal bloody drainage noted in drain No acute events overnight Problem List Medical Problems: (1) Abdominal pain Status: Acute (2) Acute cholecystitis Status: Acute Review of Systems Constitutional: No fever, No chills, No sweats, No weight loss, No weakness ENT: No hearing loss, No unusual epistaxis, No nasal symptoms, No sore throat, No tinnitus Respiratory: No cough, No sputum, No wheezing, No shortness of breath, No dyspnea on exertion Cardiac: No chest pain, No orthopnea, No PND, No edema Abdomen: No pain, No nausea, No vomiting, No diarrhea, No constipation Musculoskeletal: No joint pain, No muscle pain, No swelling, No calf pain Male : No dysuria, No urinary frequency, No incontinence Neurologic: No memory loss, No paralysis, No weakness, No numbness/tingling Psychiatric: No depression symptoms, No anhedonism, No anxiety, No insomnia Heme: No abnormal bleeding/bruising, No clotting problems Endo: No fatigue, No excessive thirst Skin: No rash, No itch Objective Vital Signs Date Time Temp Pulse Resp B/P (MAP) Pulse Ox O2 Delivery O2 Flow Rate FiO2 02/27/17 08:33 94 Room Air 02/27/17 08:15 37.0 83 17 136/86 (103) 94 Room Air 02/27/17 07:20 Room Air 02/27/17 05:33 37.4 02/27/17 02:47 37.8 02/27/17 00:12 38.1 02/27/17 00:05 Room Air 02/26/17 22:57 38.0 85 16 131/72 (91) 92 Room Air 02/26/17 16:00 Room Air 02/26/17 15:31 36.5 96 18 151/84 (106) 94 Room Air Physical Exam General Appearance: WD/WN, no apparent distress Eyes: normal inspection, PERRL, EOMI, sclerae normal Neck: supple, no adenopathy, thyroid normal, no JVD Respiratory/Chest: chest non-tender, lungs clear, normal breath sounds, no respiratory distress Cardiovascular: no edema, no gallop, no JVD, no murmur Abdomen: normal bowel sounds, non tender, soft, no organomegaly Extremities: normal range of motion, non-tender, normal inspection, no pedal edema Neurologic/Psychiatric: no motor/sensory deficits, alert, normal mood/affect, oriented x 3 Skin: normal color, warm/dry, no rash Lymphatic: no adenopathy Laboratory Results Last 24 Hours Test 02/27/17 00:00 02/27/17 08:31 Urine Color YELLOW Urine Appearance CLEAR Urine pH 7.5 Urine Specific [place] 1.016 Urine Protein NEG Urine Glucose (UA) NEG Urine Ketones NEG Urine Occult Blood 1+ Urine Nitrite NEG Urine Bilirubin NEG Urine Urobilinogen POS Urine Leukocyte Esterase NEG Urine WBC (Auto) 1-5 /hpf Urine RBC (Auto) 5-10 /hpf Urine Hyaline Casts (Auto) 1-5 /lpf Urine Epithelial Cells (Auto) 10-20 /lpf Urine Bacteria (Auto) NEG White Blood Count 10.59 K/uL Red Blood Count 4.15 M/uL Hemoglobin 13.4 g/dL Hematocrit 36.6 % Mean Corpuscular Volume 88.2 fL Mean Corpuscular Hemoglobin 32.3 pg Mean Corpuscular Hemoglobin Concent 36.6 g/dl Platelet Count 215 K/uL Mean Platelet Volume 9.3 fL Neutrophils (%) (Auto) 81.1 % Lymphocytes (%) (Auto) 10.0 % Monocytes (%) (Auto) 7.2 % Eosinophils (%) (Auto) 0.8 % Basophils (%) (Auto) 0.3 % Neutrophils # (Auto) 8.59 K/uL Lymphocytes # (Auto) 1.06 K/uL Monocytes # (Auto) 0.76 K/uL Eosinophils # (Auto) 0.09 K/uL Basophils # (Auto) 0.03 K/uL RDW Standard Deviation 40.0 fL RDW Coefficient of Variation 12.4 % Immature Granulocyte % (Auto) 0.6 % Immature Granulocyte # (Auto) 0.06 K/uL Sodium Level 134 mmol/L Potassium Level 3.6 mmol/L Chloride Level 101 mmol/L Carbon Dioxide Level 24 mmol/L Anion Gap 9.0 mmol/L Blood Urea Nitrogen 15 mg/dl Creatinine 0.92 mg/dl Est Creatinine Clear Calc Drug Dose 88.1 ml/min Estimated GFR () 98.0 Estimated GFR (Non- 84.6 BUN/Creatinine Ratio 16.2 Random Glucose 96 mg/dl Calcium Level 8.1 mg/dl Total Bilirubin 1.2 mg/dl Aspartate Amino Transf (AST/SGOT) 45 U/L Alanine Aminotransferase (ALT/SGPT) 75 U/L Alkaline Phosphatase 151 U/L Total Protein 6.5 gm/dl Albumin 2.3 gm/dl Globulin 4.2 gm/dl Albumin/Globulin Ratio 0.5 Assessment and Plan Mr. Bacon is a 67 y/o male with an unremarkable PMHx who was found to have acute cholecystitis due to cholelithiasis and biliary sludge. MRCP suggests choledocholithiases in the proximal CBD. Acute Necrotizing Cholecystitis with Cholelithiasis/Biliary Sludge and Choledocholithiasis: - POD # 2 Lap cholecystectomy - Pain resolved, fevers persisting with tmax 38.1, minimal drainage noted in drain - ERCP scheduled 02/27 - Due to likely necrotizing cholecystiti, continue antibx of unasyn 1500 mg q 6 hrs - GI and general surgery consultation appreciated Hypertensive BPs: controlled now - No documented history of hypertension and not on any medications - may possibly be pain response vs undiagnosed - Hydralazine PRN, if worsening will add lisinopril but will hold off until ERCP completed - Will continue to monitor
[2017-02-27] MEDS: LACTATED RINGER'S 1000ML 1,000 ML IV SCH ×2 (13:17→22:12)
[2017-02-27] MEDS ORDERED: INDOMETHACIN 50 MG SUPP PR ONE (13:30)
--- NOTE | 2017-02-27 13:34 | Endo History and Physical ---
History & Physical Date of Service: Feb 27, 2017. Chief Complaint: Abdominal pain Referring Physician: History of Present Illness Patient for ERCP today,presented with gangrenous cholecystitis and a positive MRCP. Past Surgical History Hx Cardiac Surgery: No Hx Abdominal Surgery: Yes (02/25/2017 possible cholecystectomy) Hx Post-Op Nausea and Vomiting: No Hx Cancer Surgery: No Hx Thoracic Surgery: No Hx Orthopedic: No Hx Urinary Tract Surgery: No Social History Smoking Status: Former Smoker Smokeless Tobacco Use: No Hx Substance Use: No Hx Alcohol Use: Yes (socially) Allergies Coded Allergies: No Known Allergies (Unverified , 02/25/17) Current Medications Reported Home Medications Medications Dose Route/Sig Max Daily Dose Days Date Category Dose Instructions Augmentin 875-125 mg (Amoxicillin & Pot Clavulanate) 1 Tab Tab 1 Tab PO BID 02/27/17 Rx [place] 5MG/325MG (Acetaminophen/Hydrocodone Bitart) Tab 1-2 Tablet PO Q 6 HRS PRN 02/27/17 Rx PRN PAIN Vital Signs Weight (Kilograms): 94.000 Height (Feet): 6 Height (Inches): 2.00 Date Time Temp Pulse Resp B/P (MAP) Pulse Ox O2 Delivery O2 Flow Rate FiO2 02/27/17 08:33 94 Room Air 02/27/17 08:15 37.0 83 17 136/86 (103) 94 Room Air 02/27/17 07:20 Room Air 02/27/17 05:33 37.4 02/27/17 02:47 37.8 02/27/17 00:12 38.1 02/27/17 00:05 Room Air 02/26/17 22:57 38.0 85 16 131/72 (91) 92 Room Air 02/26/17 16:00 Room Air 02/26/17 15:31 36.5 96 18 151/84 (106) 94 Room Air Physical Exam General Appearance: no apparent distress Respiratory/Chest: Respiratory effort: no dyspnea Cardiovascular: Heart Auscultation: RRR Abdomen: Inspection & Palpation: soft Assessment and Plan ERCP for treatment of a stone in the CBD seen on MRCP and CT. Risks include bleeding, infection, perforation, pancreatitis, failed cannulation, and need for f/u procedures.
[2017-02-27] MEDS ORDERED: MIDAZOLAM HCL 1 MG/ML 2ML VIAL ONE (14:03)
[2017-02-27] MEDS ORDERED: FENTANYL CITRATE INJ 50 MCG/1 ML 2 ML VIAL ONE (14:03)
--- NOTE | 2017-02-27 15:03 | GI REPORT ---
Procedure Date: 02/27/2017 1:47 PM Procedure: ERCP Indications: Abdominal pain of suspected biliary origin, Bile duct stone(s) Medicines: General Anesthesia, Indocin 100 mg NE Complications: No immediate complications. Estimated blood loss: Minimal. Estimated Blood Loss: Estimated blood loss was minimal. Procedure: Pre-Anesthesia Assessment: - Prior to the procedure, a History and Physical was performed, and patient medications, allergies and sensitivities were reviewed. The patient's tolerance of previous anesthesia was reviewed. - The risks and benefits of the procedure and the sedation options and risks were discussed with the patient. All questions were answered and informed consent was obtained. - Patient identification and proposed procedure were verified prior to the procedure by the physician, the nurse and the heading and priming tool setter. The procedure was verified in the procedure room. - Pre-procedure physical examination revealed no contraindications to sedation. - ASA Grade Assessment: III - A patient with severe systemic disease. - After reviewing the risks and benefits, the patient was deemed in satisfactory condition to undergo the procedure. - The anesthesia plan was to use general anesthesia. - Immediately prior to administration of medications, the patient was re-assessed for adequacy to receive sedatives. - The heart rate, respiratory rate, oxygen saturations, blood pressure, adequacy of pulmonary ventilation, and response to care were monitored throughout the procedure. - The physical status of the patient was re-assessed after the procedure. After obtaining informed consent, the scope was passed under direct vision. Throughout the procedure, the patient's blood pressure, pulse, and oxygen saturations were monitored continuously. The SCOPE was introduced through the mouth, and advanced to the duodenum and used to inject contrast into the bile duct. The ERCP was accomplished without difficulty. The patient tolerated the procedure well. Findings: A critical care unit manager film of the abdomen was obtained. Surgical clips, consistent with previous cholecystectomy, were seen in the area of the right upper quadrant of the abdomen. One percutaneous drain ending in the Right upper quadrant was seen. The esophagus was successfully intubated under direct vision without detailed examination of the pharynx, larynx, and associated structures, and upper GI tract. The upper GI tract was grossly normal. The major papilla was located partially within a diverticulum. The bile duct was deeply cannulated with the short-nosed traction sphincterotome (Omni 35) and 0.035 in Acrobat guidewire. Contrast was injected. I personally interpreted the bile duct images. Contrast extended to the hepatic ducts. The lower third of the main bile duct contained filling defect(s) thought to be a stone. A minimal amount of extravasation of contrast originating from the cystic duct remanent was observed. Biliary sphincterotomy was made with a monofilament short-tip traction sphincterotome using ERBE electrocautery. There was no post-sphincterotomy bleeding. The lower third of the main bile duct was successfully dilated with a 6 mm balloon dilator held inflated for 3 minutes. To discover objects, the biliary tree was swept with a 8.5 mm balloon and 11.5 mm balloon starting at the bifurcation. Two darkly pigmented stones were removed. No stones remained. Due to the suspected leak, one 10 Fr by 8 cm biliary stent with a single external flap and a single internal flap was placed 8 cm into the common bile duct. Bile flowed through the stent. The stent was in good position. The endoscope was withdrawn from the patient. Impression: - The major papilla was located partially within a diverticulum. - A filling defect consistent with a stone was seen on the cholangiogram. - A low grade bile leak was found. - A sphincterotomy was performed. - The lower third of the main bile duct was successfully dilated to 6 mm - The biliary tree was swept. - Choledocholithiasis was found. Complete removal was accomplished by biliary sphincterotomy and balloon extraction. - 8 cm biliary stent placed. Recommendation: - Return patient to hospital ware for ongoing care. - Clear liquid diet today. - Repeat ERCP in 6 weeks to remove stent. Jacques Bonds D.O. Jacques Bonds DO 02/27/2017 3:03:23 PM This report has been signed electronically. Note Initiated On: 02/27/2017 1:47 PM I attest to the content of the Intraoperative Record and orders documented therein, exceptions below
--- NOTE | 2017-02-27 15:06 | [facility] Post Operative Brief Note ---
Immediate Operative Summary Operative Date Feb 27, 2017. Pre-Operative Diagnosis Common bile duct stones Post-Operative Diagnosis Common bile duct stones, Low grade bile leak Procedure(s) Performed Endoscopic Retrograde Cholangiopancreatogram with dilation and stone extraction and common bile duct stent placement Surgeon Dr Bonds Fluid Jet Cutter Operator Surgeon(s) NA Estimated Blood Loss 0ML Findings 2 CBD stones Low grade bile leak Specimens None Drains DYLAN Drain (placed during cholecystectomy), Bilariy stent placed Anesthesia General Complication(s) None Disposition Recovery Room / PACU
--- NOTE | 2017-02-27 15:07 | DIAGNOSTIC IMAGING REPORT ---
ERCP BILIARY DUCTAL CLINICAL HISTORY: ERCP IN OR 02/27/17stent placement COMPARISON STUDY: MRCP 02/25/2017 FLUOROSCOPY TIME: 2 minutes. FINDINGS: Examination confirms retrograde cannulation of the common bile duct. This is followed by balloon insufflation and sweeping of the duct as well as stent placement. Final image shows no well-defined filling defect. Appears to be a slight degree of contrast adjacent to the duodenal sweep lateral to the L1 vertebral body. This potentially represents a diverticulum. IMPRESSION: ERCP with stent placement The above report was generated using voice recognition software. It may contain grammatical, syntax or spelling errors. Electronically signed by: Joey Perez M.D. 02/27/2017 3:05 PM Dictated Date/Time: 02/27/2017 3:03 PM
[2017-02-27] MEDS ORDERED: PROPOFOL IV EMULSION 10 MG/ML 20 ML VIAL IV ONE (15:14)
[2017-02-27] MEDS ORDERED: LIDOCAINE HCL 2% 2 ML VIAL (20MG/ML) ONE (15:14)
[2017-02-27] MEDS ORDERED: ROCURONIUM BROMIDE 10 MG/ML 5 ML VIAL ONE (15:14)
--- NOTE | 2017-02-27 16:15 | Anesthesiology Progress Note ---
Anesthesia Post Op Note Date & Time Feb 27, 2017 at 16:15 Vital Signs Pain Intensity: 0 Vital Signs Past 12 Hours Date Time Temp Pulse Resp B/P (MAP) Pulse Ox O2 Delivery O2 Flow Rate FiO2 02/27/17 15:47 36.6 139/69 02/27/17 15:42 80 21 02/27/17 15:42 79 21 92 02/27/17 15:41 140/72 02/27/17 15:37 79 19 97 02/27/17 15:37 78 19 02/27/17 15:36 158/83 02/27/17 15:35 77 19 02/27/17 15:35 77 19 98 02/27/17 15:30 82 18 140/74 02/27/17 15:30 83 18 94 02/27/17 15:26 144/78 02/27/17 15:25 82 24 94 02/27/17 15:25 81 24 02/27/17 15:21 157/89 02/27/17 15:20 81 25 98 02/27/17 15:20 82 25 02/27/17 15:17 156/95 02/27/17 15:05 36.4 98 16 164/97 98 Mask 10 02/27/17 08:33 94 Room Air 02/27/17 08:15 37.0 83 17 136/86 (103) 94 Room Air 02/27/17 07:20 Room Air 02/27/17 05:33 37.4 Notes Mental Status: alert / awake / arousable, participated in evaluation Pt Amnestic to Procedure: Yes Nausea / Vomiting: adequately controlled Pain: adequately controlled Airway Patency, RR, SpO2: stable & adequate BP & HR: stable & adequate Hydration State: stable & adequate Anesthetic Complications: no major complications apparent
[2017-02-28 03:02] VITALS: BP 121/75; PULSE 73; TEMP 36.7; O2SAT 73
[2017-02-28] MEDS: AMPICILLIN/SULBACTAM SOD INJ 1,500 MG in SODIUM CHLORIDE 0.9% 100ML 100 ML IV SCH ×2 (05:24→11:32)
[2017-02-28 05:25] LABS: BASO % 0.1 %; BASO ABS # 0.01 K/uL (0-0.2); COMPLETE YES; EOS % 2.5 %; HEMATOCRIT 34.8 % (42-52); IG% 1.1 %; LYMPH % 13.2 %; LYMPH ABS # 1.09 K/uL (1.2-3.4); MEAN CELL VOLUME 87.7 fL (80-100); MEAN CORPUSCULAR HGB CONC 35.3 g/dl (32-36); MEAN PLATELET VOLUME 8.9 fL (7.4-10.4); NEUT % 76.1 %; PLATELET COUNT 268 K/uL (130-400); RED BLOOD COUNT 3.97 M/uL (4.7-6.1); WHITE BLOOD COUNT 8.26 K/uL (4.8-10.8)
--- NOTE | 2017-02-28 05:55 | Surgery Progress Note ---
Surgery Progress Note Date of Service Feb 28, 2017. Subjective + feeling well wants to go home min drainage Objective Vital Signs: Date Time Temp Pulse Resp B/P (MAP) Pulse Ox O2 Delivery O2 Flow Rate FiO2 02/28/17 03:02 36.7 73 16 121/75 (90) 73 Room Air 02/27/17 23:15 Room Air 02/27/17 22:52 36.7 69 16 135/83 (100) 98 Room Air 02/27/17 19:06 36.5 64 18 152/91 (111) 98 Room Air 02/27/17 18:14 36.3 76 16 148/88 (108) 96 Room Air 02/27/17 17:00 36.3 66 18 140/85 (103) 98 Room Air 02/27/17 16:33 36.6 67 18 144/88 (106) 95 Room Air 02/27/17 16:00 36.7 79 18 147/89 (108) 94 Room Air 02/27/17 16:00 94 Room Air 02/27/17 16:00 Room Air 02/27/17 15:47 36.6 139/69 02/27/17 15:42 80 21 02/27/17 15:42 79 21 92 02/27/17 15:41 140/72 02/27/17 15:37 79 19 97 02/27/17 15:37 78 19 02/27/17 15:36 158/83 02/27/17 15:35 77 19 02/27/17 15:35 77 19 98 02/27/17 15:30 82 18 140/74 02/27/17 15:30 83 18 94 02/27/17 15:26 144/78 02/27/17 15:25 82 24 94 02/27/17 15:25 81 24 02/27/17 15:21 157/89 02/27/17 15:20 81 25 98 02/27/17 15:20 82 25 02/27/17 15:17 156/95 02/27/17 15:05 36.4 98 16 164/97 98 Mask 10 02/27/17 08:33 94 Room Air 02/27/17 08:15 37.0 83 17 136/86 (103) 94 Room Air 02/27/17 07:20 Room Air General Appearance: no apparent distress Respiratory/Chest: no respiratory distress Abdomen: soft Incision(s): intact Laboratory Results: Results Past 24 Hours Test 02/27/17 08:31 02/28/17 05:09 Range/Units White Blood Count 10.59 8.26 4.8-10.8 K/uL Red Blood Count 4.15 3.97 4.7-6.1 M/uL Hemoglobin 13.4 12.3 14.0-18.0 g/dL Hematocrit 36.6 34.8 42-52 % Mean Corpuscular Volume 88.2 87.7 80-100 fL Mean Corpuscular Hemoglobin 32.3 31.0 25-34 pg Mean Corpuscular Hemoglobin Concent 36.6 35.3 32-36 g/dl Platelet Count 215 268 130-400 K/uL Mean Platelet Volume 9.3 8.9 7.4-10.4 fL Neutrophils (%) (Auto) 81.1 76.1 % Lymphocytes (%) (Auto) 10.0 13.2 % Monocytes (%) (Auto) 7.2 7.0 % Eosinophils (%) (Auto) 0.8 2.5 % Basophils (%) (Auto) 0.3 0.1 % Neutrophils # (Auto) 8.59 6.28 1.4-6.5 K/uL Lymphocytes # (Auto) 1.06 1.09 1.2-3.4 K/uL Monocytes # (Auto) 0.76 0.58 0.11-0.59 K/uL Eosinophils # (Auto) 0.09 0.21 0-0.5 K/uL Basophils # (Auto) 0.03 0.01 0-0.2 K/uL RDW Standard Deviation 40.0 40.4 36.4-46.3 fL RDW Coefficient of Variation 12.4 12.4 11.5-14.5 % Immature Granulocyte % (Auto) 0.6 1.1 % Immature Granulocyte # (Auto) 0.06 0.09 0.00-0.02 K/uL Sodium Level 134 136-145 mmol/L Potassium Level 3.6 3.5-5.1 mmol/L Chloride Level 101 98-107 mmol/L Carbon Dioxide Level 24 21-32 mmol/L Anion Gap 9.0 3-11 mmol/L Blood Urea Nitrogen 15 7-18 mg/dl Creatinine 0.92 0.60-1.40 mg/dl Est Creatinine Clear Calc Drug Dose 88.1 ml/min Estimated GFR () 98.0 Estimated GFR (Non- 84.6 BUN/Creatinine Ratio 16.2 10-20 Random Glucose 96 70-99 mg/dl Calcium Level 8.1 8.5-10.1 mg/dl Total Bilirubin 1.2 0.2-1 mg/dl Aspartate Amino Transf (AST/SGOT) 45 15-37 U/L Alanine Aminotransferase (ALT/SGPT) 75 12-78 U/L Alkaline Phosphatase 151 45-117 U/L Total Protein 6.5 6.4-8.2 gm/dl Albumin 2.3 3.4-5.0 gm/dl Globulin 4.2 2.5-4.0 gm/dl Albumin/Globulin Ratio 0.5 0.9-2 Assessment & Plan 02/28/17- ERCP yesterday- 2 stones recovered. he feels well, leave drain- consider d/c home today after labs checked and ok with GI- adv diet 02/27/17- for ERCP later today- continue Unasyn, monitor temp leave drain. check CXR, U/A 02/26/17- s/p lap eleonora with findings of severe necrotizing cholecystitis doing well, drain in place, labs pending, cont Unasyn, for ERCP per GI team 02/27/17- for ERCP later today- continue Unasyn, monitor temp leave drain. check CXR, U/A 02/26/17- s/p lap eleonora with findings of severe necrotizing cholecystitis doing well, drain in place, labs pending, cont Unasyn, for ERCP per GI team
[2017-02-28 05:57] LABS: BUN/CREATININE RATIO 18.7 (10-20); CALCIUM 7.8 mg/dl (8.5-10.1); CREATININE 0.75 mg/dl (0.60-1.40); POTASSIUM 3.6 mmol/L (3.5-5.1)
[2017-02-28 06:14] LABS: ALB/GLOB RATIO 0.5 (0.9-2)
[2017-02-28 07:33] VITALS: BP 132/76; PULSE 78; TEMP 36.7; O2SAT 94
--- NOTE | 2017-02-28 07:59 | Anesthesiology Progress Note ---
Anesthesia Post Op Note Date & Time Feb 28, 2017 at 07:58 Vital Signs Vital Signs Past 12 Hours Date Time Temp Pulse Resp B/P (MAP) Pulse Ox O2 Delivery O2 Flow Rate FiO2 02/28/17 07:33 36.7 78 22 132/76 (94) 94 Room Air 02/28/17 07:10 Room Air 02/28/17 03:02 36.7 73 16 121/75 (90) 73 Room Air 02/27/17 23:15 Room Air 02/27/17 22:52 36.7 69 16 135/83 (100) 98 Room Air Notes Mental Status: alert / awake / arousable, participated in evaluation Pt Amnestic to Procedure: Yes Nausea / Vomiting: adequately controlled Pain: adequately controlled Airway Patency, RR, SpO2: stable & adequate BP & HR: stable & adequate Hydration State: stable & adequate Anesthetic Complications: no major complications apparent
[2017-02-28 08:28] VITALS: O2SAT 94
--- NOTE | 2017-02-28 08:45 | Medical Student: [facility] ---
Med Student Progress Note Date of Service Feb 28, 2017. Subjective Pt evaluation today including: conversation w/ patient, chart review, lab review, review of studies Pain: patient denies PO Intake: tolerating PO diet Voiding: no voiding problems Randy Bacon is a 67 yo male, who presented with worsening RUQ abdominal pain x 1 week. He is s/p cholecystectomy (02/25) for diagnosis of acute cholecystitis. He is also s/p ERCP (02/27) with removal of 2 common bile duct stones for diagnosis of choledocholithiasis. Patient is currently denying any complaints, specifically no abdominal pain. When prompted, patient notes an "intermittent tickling" of his throat after his ERCP yesterday, but again denies pain. Patient reports he has not noticed if his abdomen is any more or less distended than usual. Patient is wanting to go home and feels well. Review of Systems Constitutional: No fever, No chills Eyes: No worsening of vision, No eye pain ENT: + sore throat ("tickle" after ERCP yesterday), No hearing loss Respiratory: No cough, No shortness of breath Cardiac: No chest pain, No palpitations Abdomen: No pain, No nausea, No vomiting, No diarrhea, No constipation Musculoskeletal: No muscle pain, No swelling Male : No dysuria, No urinary frequency, No incontinence Neurologic: No memory loss, No weakness Heme: No abnormal bleeding/bruising Skin: No rash, No itch Objective Vital Signs Date Time Temp Pulse Resp B/P (MAP) Pulse Ox O2 Delivery O2 Flow Rate FiO2 02/28/17 08:28 94 Room Air 02/28/17 07:33 36.7 78 22 132/76 (94) 94 Room Air 02/28/17 07:10 Room Air 02/28/17 03:02 36.7 73 16 121/75 (90) 73 Room Air 02/27/17 23:15 Room Air 02/27/17 22:52 36.7 69 16 135/83 (100) 98 Room Air 02/27/17 19:06 36.5 64 18 152/91 (111) 98 Room Air 02/27/17 18:14 36.3 76 16 148/88 (108) 96 Room Air 02/27/17 17:00 36.3 66 18 140/85 (103) 98 Room Air 02/27/17 16:33 36.6 67 18 144/88 (106) 95 Room Air 02/27/17 16:00 36.7 79 18 147/89 (108) 94 Room Air 02/27/17 16:00 94 Room Air 02/27/17 16:00 Room Air 02/27/17 15:47 36.6 139/69 02/27/17 15:42 80 21 02/27/17 15:42 79 21 92 02/27/17 15:41 140/72 02/27/17 15:37 79 19 97 02/27/17 15:37 78 19 02/27/17 15:36 158/83 02/27/17 15:35 77 19 02/27/17 15:35 77 19 98 02/27/17 15:30 82 18 140/74 02/27/17 15:30 83 18 94 02/27/17 15:26 144/78 02/27/17 15:25 82 24 94 02/27/17 15:25 81 24 02/27/17 15:21 157/89 02/27/17 15:20 81 25 98 02/27/17 15:20 82 25 02/27/17 15:17 156/95 02/27/17 15:05 36.4 98 16 164/97 98 Mask 10 Physical Exam General Appearance: WD/WN, no apparent distress Respiratory/Chest: chest non-tender, lungs clear, normal breath sounds, no respiratory distress, no accessory muscle use Cardiovascular: regular rate, rhythm, no edema, no murmur Abdomen: normal bowel sounds, non tender, soft, + distended, + pertinent finding (clean dry dressings with drainage tube still in place) Extremities: normal range of motion, non-tender, normal inspection Neurologic/Psychiatric: alert, normal mood/affect, oriented x 3 Skin: normal color, warm/dry, + pertinent finding (dressings from lap cholecystecomy on abdomen) Laboratory Results Last 24 Hours Test 02/28/17 05:09 White Blood Count 8.26 K/uL Red Blood Count 3.97 M/uL Hemoglobin 12.3 g/dL Hematocrit 34.8 % Mean Corpuscular Volume 87.7 fL Mean Corpuscular Hemoglobin 31.0 pg Mean Corpuscular Hemoglobin Concent 35.3 g/dl Platelet Count 268 K/uL Mean Platelet Volume 8.9 fL Neutrophils (%) (Auto) 76.1 % Lymphocytes (%) (Auto) 13.2 % Monocytes (%) (Auto) 7.0 % Eosinophils (%) (Auto) 2.5 % Basophils (%) (Auto) 0.1 % Neutrophils # (Auto) 6.28 K/uL Lymphocytes # (Auto) 1.09 K/uL Monocytes # (Auto) 0.58 K/uL Eosinophils # (Auto) 0.21 K/uL Basophils # (Auto) 0.01 K/uL RDW Standard Deviation 40.4 fL RDW Coefficient of Variation 12.4 % Immature Granulocyte % (Auto) 1.1 % Immature Granulocyte # (Auto) 0.09 K/uL Sodium Level 138 mmol/L Potassium Level 3.6 mmol/L Chloride Level 104 mmol/L Carbon Dioxide Level 26 mmol/L Anion Gap 8.0 mmol/L Blood Urea Nitrogen 14 mg/dl Creatinine 0.75 mg/dl Est Creatinine Clear Calc Drug Dose 108.1 ml/min Estimated GFR () 108.5 Estimated GFR (Non- 93.6 BUN/Creatinine Ratio 18.7 Random Glucose 107 mg/dl Calcium Level 7.8 mg/dl Total Bilirubin 0.7 mg/dl Direct Bilirubin 0.3 mg/dl Aspartate Amino Transf (AST/SGOT) 62 U/L Alanine Aminotransferase (ALT/SGPT) 100 U/L Alkaline Phosphatase 154 U/L Total Protein 5.7 gm/dl Albumin 2.0 gm/dl Globulin 3.7 gm/dl Albumin/Globulin Ratio 0.5 Lipase 402 U/L Medications Medications Administered Medications (Trade) Dose Ordered Sig/Melody Route Start Time Stop Time Status Last Admin Dose Admin Morphine Sulfate (MoRPHine SULFATE INJ) 4 mg NOW STAT IV 02/25/17 07:06 02/25/17 07:08 DC 02/25/17 07:15 4 MG Ondansetron HCl (Zofran Inj) 4 mg NOW STAT IV 02/25/17 07:06 02/25/17 07:08 DC 02/25/17 07:16 4 MG Pantoprazole Sodium 40 mg/ Syringe 10 ml @ 5 mls/min NOW ONCE IV 02/25/17 07:15 02/25/17 07:16 DC 02/25/17 07:47 5 MLS/MIN Sodium Chloride 1,000 ml @ 250 mls/hr Q4H STAT IV 02/25/17 07:06 7/11/17 11:05 DC 02/25/17 07:15 250 MLS/HR Morphine Sulfate (MoRPHine SULFATE INJ) 4 mg NOW STAT IV 02/25/17 08:11 02/25/17 08:12 DC 02/25/17 08:16 4 MG Hydromorphone HCl (Dilaudid Inj) 1 mg NOW STAT IV 02/25/17 08:52 02/25/17 09:03 DC 02/25/17 09:26 1 MG Cefoxitin Sodium (Mefoxin 2000mg/ 60 ml D5W) 2,000 mg NOW STAT IV 02/25/17 10:13 02/25/17 10:14 DC 02/25/17 10:50 2,000 MG Lactated Ringer's 1,000 ml @ 125 mls/hr Q8H IV 02/25/17 13:30 02/25/17 17:15 DC 02/25/17 13:18 125 MLS/HR Indomethacin (Indocin Suppository) 100 mg PREOP LA 02/27/17 07:00 02/27/17 18:00 DC 02/27/17 14:42 100 MG Bupivacaine HCl (Marcaine 0.5% MPF Inj) 30 ml STK-MED ONCE .ROUTE 02/25/17 14:25 02/25/17 14:26 DC 02/25/17 15:30 12 ML Ampicillin Sodium/ Sulbactam Sodium 1500 mg/Sodium Chloride 104 ml @ 200 mls/hr Q6H IV 02/25/17 17:30 03/07/17 17:29 02/28/17 05:24 200 MLS/HR Acetaminophen/ Hydrocodone Bitart ([place] 5/325 Tab) 1 tab Q4 PRN PO 02/25/17 15:45 03/11/17 15:44 02/25/17 23:23 1 TAB Lactated Ringer's 1,000 ml @ 50 mls/hr Q20H IV 02/25/17 15:45 02/26/17 11:36 DC 02/26/17 01:48 100 MLS/HR Heparin Sodium (Porcine) (Heparin Sq 5000 Unit/0.5ml) 5,000 unit Q12H SQ 02/26/17 08:00 02/26/17 22:00 DC 02/26/17 21:05 5,000 UNIT Lactated Ringer's 1,000 ml @ 50 mls/hr Q20H IV 02/27/17 13:00 03/29/17 12:59 02/27/17 22:12 50 MLS/HR Assessment and Plan Assessment and Plan: Assessment: Randy Bacon is a 67 yo male, without significant PMHx, but with recent surgical history of a laparoscopic cholecystectomy (02/25) for acute gangrenous cholecystitis and ERCP (02/27) for choledocholithiasis (2 stones in common bile duct). Patient currently has drainage tube in place with minimal reddish fluid. Patient wishes to go home, as original symptoms of worsening acute RUQ abdominal pain and nausea have since resolved. Plan: 1) Acute gangrenous cholecystitis/Choledocholithiasis with biliary sludge - U/S and CT with contrast showed acute cholecystitis with possible common bile duct stone and biliary sludge - Laparoscopic cholecystectomy on 02/25/2017 to remove gangrenous gallbladder - MRCP on 02/25/2017 confirmed diagnosis of choledocholithiasis - ERCP on 02/27/2017 removed 2 common bile duct stones - Consult with GI and general surgery - Control patient's pain (currently resolved on no medication) and nausea ( currently resolved) - Continue antibiotic coverage (Ampicillin Sodium/Sulbactam Sodium 1500 mg/ Sodium Chloride, on 3rd day) - Trend patient's low-grade fever has resolved, no fever recorded since 02/27 at 02:43 (37.8C) - Trend WBCs (9.91 on 02/25, 11.73 on 02/26, 10.59 on 02/27, 8.26 on 02/28) - Monitor labs after ERCP. Slight bump in LFTs after ERCP. Total bilirubin is now within normal range (1.2 on 02/27 to 0.7 on 02/28) and direct bilirubin has decreased (0.6 on 02/27 to 0.3 on 02/28). - Monitor lipase for potential pancreatitis as complication of ERCP. Lipase of 402 on 02/28. Patient denies any abdominal pain or tenderness upon palpation at this time. 2) Previously high BP, without history of HTN, currently resolved - Trend BP's during recovery from surgery (140/85, 148/88, 152/91, 135/83, 121/ 75 overnight). BPs trending down, elevation likely reaction to surgery and stress. - Consider prescribing lisinopril and follow-up with PCP. 3) Anemia - Likely secondary to post surgical changes. Patient is asymptomatic, will continue to monitor, but patient likely does not need transfusion at this time. Discharge planning: home
[2017-02-28] MEDS: LACTATED RINGER'S 1000ML 1,000 ML IV SCH (09:34)
--- NOTE | 2017-02-28 11:17 | Gastroenterology Progress Note ---
Progress Note Date of Service: Feb 28, 2017 Subjective Pt evaluation today including: conversation w/ patient, physical exam, chart review, lab review, review of studies, review of inpatient medication list Pt afebrile for over 24hrs, feels well, denies any abd pain, n/v. Tolerating solid foods, passing flatus and already had BM this AM. Review of Systems Constitutional: No fever, No chills Respiratory: No cough Cardiac: No chest pain Abdomen: No pain, No nausea, No vomiting Medications Current Inpatient Medications Medications (Trade) Dose Ordered Sig/Melody Route Start Time Stop Time Status Last Admin Dose Admin Hydromorphone HCl (Dilaudid Inj) 0.5 mg Q3H PRN IV 02/25/17 10:45 03/11/17 10:44 Hydromorphone HCl (Dilaudid Inj) 1 mg Q3H PRN IV 02/25/17 10:45 03/11/17 10:44 Promethazine HCl 25 mg/Sodium Chloride 51 ml @ 204 mls/hr Q6H PRN IV 02/25/17 10:45 03/27/17 10:44 Ondansetron HCl (Zofran Inj) 4 mg Q6H PRN IV 02/25/17 10:45 03/27/17 10:44 Promethazine HCl 12.5 mg/Sodium Chloride 50.5 ml @ 204 mls/hr Q6H PRN IV 02/25/17 11:00 03/27/17 10:59 Hydralazine HCl (HydrALAZINE INJ) 10 mg Q6 PRN IV. 02/25/17 14:15 03/27/17 14:14 Ampicillin Sodium/ Sulbactam Sodium 1500 mg/Sodium Chloride 104 ml @ 200 mls/hr Q6H IV 02/25/17 17:30 03/07/17 17:29 02/28/17 05:24 200 MLS/HR Acetaminophen/ Hydrocodone Bitart ([place] 5/325 Tab) 1 tab Q4 PRN PO 02/25/17 15:45 03/11/17 15:44 02/25/17 23:23 1 TAB Acetaminophen/ Hydrocodone Bitart ([place] 5/325 Tab) 2 tab Q4 PRN PO 02/25/17 15:45 03/11/17 15:44 Lactated Ringer's 1,000 ml @ 50 mls/hr Q20H IV 02/27/17 13:00 03/29/17 12:59 02/28/17 09:34 50 MLS/HR Objective Vital Signs Date Time Temp Pulse Resp B/P (MAP) Pulse Ox O2 Delivery O2 Flow Rate FiO2 02/28/17 08:28 94 Room Air 02/28/17 07:33 36.7 78 22 132/76 (94) 94 Room Air 02/28/17 07:10 Room Air 02/28/17 03:02 36.7 73 16 121/75 (90) 73 Room Air 02/27/17 23:15 Room Air 02/27/17 22:52 36.7 69 16 135/83 (100) 98 Room Air 02/27/17 19:06 36.5 64 18 152/91 (111) 98 Room Air 02/27/17 18:14 36.3 76 16 148/88 (108) 96 Room Air 02/27/17 17:00 36.3 66 18 140/85 (103) 98 Room Air 02/27/17 16:33 36.6 67 18 144/88 (106) 95 Room Air 02/27/17 16:00 36.7 79 18 147/89 (108) 94 Room Air 02/27/17 16:00 94 Room Air 02/27/17 16:00 Room Air 02/27/17 15:47 36.6 139/69 02/27/17 15:42 80 21 02/27/17 15:42 79 21 92 02/27/17 15:41 140/72 02/27/17 15:37 79 19 97 02/27/17 15:37 78 19 02/27/17 15:36 158/83 02/27/17 15:35 77 19 02/27/17 15:35 77 19 98 02/27/17 15:30 82 18 140/74 02/27/17 15:30 83 18 94 02/27/17 15:26 144/78 02/27/17 15:25 82 24 94 02/27/17 15:25 81 24 02/27/17 15:21 157/89 02/27/17 15:20 81 25 98 02/27/17 15:20 82 25 02/27/17 15:17 156/95 02/27/17 15:05 36.4 98 16 164/97 98 Mask 10 Physical Exam General Appearance: WD/WN, no apparent distress Eyes: normal inspection, PERRL, EOMI Neck: supple, no JVD, trachea midline Respiratory/Chest: normal breath sounds, no respiratory distress, no accessory muscle use Cardiovascular: regular rate, rhythm, no gallop, no murmur Abdomen: normal bowel sounds, non tender, soft, + pertinent finding (RUQ DYLAN drain w/o discharge in bulb) Neurologic/Psych: alert, normal mood/affect, oriented x 3 Skin: normal color, no jaundice, no rash Laboratory Results Last 24 Hours Test 02/28/17 05:09 White Blood Count 8.26 K/uL Red Blood Count 3.97 M/uL Hemoglobin 12.3 g/dL Hematocrit 34.8 % Mean Corpuscular Volume 87.7 fL Mean Corpuscular Hemoglobin 31.0 pg Mean Corpuscular Hemoglobin Concent 35.3 g/dl Platelet Count 268 K/uL Mean Platelet Volume 8.9 fL Neutrophils (%) (Auto) 76.1 % Lymphocytes (%) (Auto) 13.2 % Monocytes (%) (Auto) 7.0 % Eosinophils (%) (Auto) 2.5 % Basophils (%) (Auto) 0.1 % Neutrophils # (Auto) 6.28 K/uL Lymphocytes # (Auto) 1.09 K/uL Monocytes # (Auto) 0.58 K/uL Eosinophils # (Auto) 0.21 K/uL Basophils # (Auto) 0.01 K/uL RDW Standard Deviation 40.4 fL RDW Coefficient of Variation 12.4 % Immature Granulocyte % (Auto) 1.1 % Immature Granulocyte # (Auto) 0.09 K/uL Sodium Level 138 mmol/L Potassium Level 3.6 mmol/L Chloride Level 104 mmol/L Carbon Dioxide Level 26 mmol/L Anion Gap 8.0 mmol/L Blood Urea Nitrogen 14 mg/dl Creatinine 0.75 mg/dl Est Creatinine Clear Calc Drug Dose 108.1 ml/min Estimated GFR () 108.5 Estimated GFR (Non- 93.6 BUN/Creatinine Ratio 18.7 Random Glucose 107 mg/dl Calcium Level 7.8 mg/dl Total Bilirubin 0.7 mg/dl Direct Bilirubin 0.3 mg/dl Aspartate Amino Transf (AST/SGOT) 62 U/L Alanine Aminotransferase (ALT/SGPT) 100 U/L Alkaline Phosphatase 154 U/L Total Protein 5.7 gm/dl Albumin 2.0 gm/dl Globulin 3.7 gm/dl Albumin/Globulin Ratio 0.5 Lipase 402 U/L Assessment and Plan Patient is a 67 year old male w mid abd pain since last , no fever but chills. Labs showed elevated LFTs, Lipase, imaging w u/s and CT abd/pelvis concerning for acute cholecystitis and possible CBD stone, + mild intra/ extrahepatic ductal dilation. CBD measured 8mm. He is s/p lap cholecystectomy on 02/25, s/p ERCP w choledocholithiasis x2 removal , sphincterectomy and biliary stent placement for suspected low grade bile leak. Afebrile for >24hrs, tolerating solid meals, no abd pain, n/v. DYLAN drain in place. Mild transaminases and Lipase (400s) elevation this AM. H/H stable. Plans - Antibx coverage choice per Surgery - OK for DC from GI standpoint w f/u w Surgery team, repeat ERCP to remove biliary stent in 6 week's time. - Avoid NSAIDs, ASA, blood thinners is possible 1 week after sphincterectomy
--- NOTE | 2017-02-28 11:45 | Discharge Summary ---
Discharge Summary Date of Service Feb 28, 2017. Admission Date/Reason Feb 25, 2017 at 10:32 Acute Cholecystitis, Choledocholithiasis. Discharge Date/Disposition Feb 28, 2017 Home Diagnosis Principal Diagnosis: Acute Cholecystitis, necrotizing (gangrenous) cholecystitis Common bile duct stones, Low grade bile leak Procedure(s) Performed 1. Laparoscopic cholecystectomy on 02/25/[address] Bañuelos 2. Endoscopic Retrograde Cholangiopancreatogram with dilation and stone extraction and common bile duct stent placement on 02/27/[address] Bonds Consultations 1. [facility] Hospitalist 2. [facility] Medication Reconciliation New Medications: Amoxicillin & Pot Clavulanate (Augmentin 875-125 mg) 1 Tab Tab 1 TAB PO BID, #14 TAB Hydrocodone/Acetaminophen 5MG/325MG ([place] 5MG/325MG) Tab 1-2 TABLET PO q 6 hrs PRN for Pain, #30 TAB PRN PAIN Referrals Follow up Referrals: Security Compliance Engineer Referral - Within 6 Weeks with Jacques Bonds, DO Admission Physical Exam As per Admitting History & Physical. Hospital Course 67 y/o male presented to ED with abdominal pain for one week increasing over the last 24-[address] and U/S showed acute cholecystitis and possible CBD stone on CT which was confirmed by MRCP. He was admitted to the surgical service and started on IV Unasyn. Hospitalist was consulted routinely. Due to the concern for cholecystitis, he was taken to the OR that afternoon for laparoscopic cholecystectomy where necrotizing cholecystitis was identified. The procedure was well tolerated, a DYLAN drain was placed. He was recovering well and taken back to the OR for ERCP with stone extraction and stenting two days later. The next day his bilirubin had normalized and although he had a slight elevation in lipase (402) he was feeling well and tolerating diet. He was stable for discharge home with the drain which will be removed on Friday. Biliary stent to be removed in [address]. Bañuelos's office in 3 days for removal of the drain Please refer to the electronic Patient Visit Report (Discharge Instructions) for additional information.
[2017-02-28 11:56] VITALS: BP 132/76; PULSE 78; TEMP 36.7; O2SAT 94
--- NOTE | 2017-02-28 15:21 | Progress Note ---
Subjective Date of Service: Feb 28, 2017. Subjective Pt evaluation today including: conversation w/ patient, physical exam, chart review, lab review, review of studies, review of inpatient medication list Pt resting comfortably Denies any pain or distress Problem List Medical Problems: (1) Abdominal pain Status: Acute (2) Acute cholecystitis Status: Acute Review of Systems Constitutional: No fever, No chills, No sweats, No weight loss, No weakness Eyes: No worsening of vision, No eye pain, No redness, No discharge ENT: No hearing loss, No unusual epistaxis, No nasal symptoms, No sore throat Respiratory: No cough, No sputum, No wheezing, No shortness of breath, No dyspnea on exertion Cardiac: No chest pain, No orthopnea, No PND, No edema, No claudication Abdomen: No pain, No nausea, No vomiting, No diarrhea, No constipation Musculoskeletal: No joint pain, No muscle pain Male : No dysuria, No urinary frequency, No incontinence, No nocturia more than once/night Neurologic: No memory loss, No paralysis, No weakness, No numbness/tingling Psychiatric: No depression symptoms, No anhedonism, No anxiety, No insomnia Skin: No rash, No itch Objective Vital Signs Date Time Temp Pulse Resp B/P (MAP) Pulse Ox O2 Delivery O2 Flow Rate FiO2 02/28/17 11:56 36.7 78 22 94 Room Air 02/28/17 08:28 94 Room Air 02/28/17 07:33 36.7 78 22 132/76 (94) 94 Room Air 02/28/17 07:10 Room Air 02/28/17 03:02 36.7 73 16 121/75 (90) 73 Room Air 02/27/17 23:15 Room Air 02/27/17 22:52 36.7 69 16 135/83 (100) 98 Room Air 02/27/17 19:06 36.5 64 18 152/91 (111) 98 Room Air 02/27/17 18:14 36.3 76 16 148/88 (108) 96 Room Air 02/27/17 17:00 36.3 66 18 140/85 (103) 98 Room Air 02/27/17 16:33 36.6 67 18 144/88 (106) 95 Room Air 02/27/17 16:00 36.7 79 18 147/89 (108) 94 Room Air 02/27/17 16:00 94 Room Air 02/27/17 16:00 Room Air 02/27/17 15:47 36.6 139/69 02/27/17 15:42 80 21 02/27/17 15:42 79 21 92 02/27/17 15:41 140/72 02/27/17 15:37 79 19 97 02/27/17 15:37 78 19 02/27/17 15:36 158/83 02/27/17 15:35 77 19 02/27/17 15:35 77 19 98 02/27/17 15:30 82 18 140/74 02/27/17 15:30 83 18 94 02/27/17 15:26 144/78 02/27/17 15:25 82 24 94 02/27/17 15:25 81 24 02/27/17 15:21 157/89 02/27/17 15:20 81 25 98 02/27/17 15:20 82 25 Physical Exam General Appearance: WD/WN, no apparent distress ENT: normal ENT inspection, hearing grossly normal, TMs normal, pharynx normal Neck: supple, no adenopathy, thyroid normal, no JVD Respiratory/Chest: chest non-tender, lungs clear, normal breath sounds, no respiratory distress Cardiovascular: regular rate, rhythm, no edema, no gallop, no JVD Abdomen: normal bowel sounds, non tender, soft, no organomegaly, + pertinent finding (drain in place) Neurologic/Psychiatric: no motor/sensory deficits, alert, normal mood/affect Laboratory Results Last 24 Hours Test 02/28/17 05:09 White Blood Count 8.26 K/uL Red Blood Count 3.97 M/uL Hemoglobin 12.3 g/dL Hematocrit 34.8 % Mean Corpuscular Volume 87.7 fL Mean Corpuscular Hemoglobin 31.0 pg Mean Corpuscular Hemoglobin Concent 35.3 g/dl Platelet Count 268 K/uL Mean Platelet Volume 8.9 fL Neutrophils (%) (Auto) 76.1 % Lymphocytes (%) (Auto) 13.2 % Monocytes (%) (Auto) 7.0 % Eosinophils (%) (Auto) 2.5 % Basophils (%) (Auto) 0.1 % Neutrophils # (Auto) 6.28 K/uL Lymphocytes # (Auto) 1.09 K/uL Monocytes # (Auto) 0.58 K/uL Eosinophils # (Auto) 0.21 K/uL Basophils # (Auto) 0.01 K/uL RDW Standard Deviation 40.4 fL RDW Coefficient of Variation 12.4 % Immature Granulocyte % (Auto) 1.1 % Immature Granulocyte # (Auto) 0.09 K/uL Sodium Level 138 mmol/L Potassium Level 3.6 mmol/L Chloride Level 104 mmol/L Carbon Dioxide Level 26 mmol/L Anion Gap 8.0 mmol/L Blood Urea Nitrogen 14 mg/dl Creatinine 0.75 mg/dl Est Creatinine Clear Calc Drug Dose 108.1 ml/min Estimated GFR () 108.5 Estimated GFR (Non- 93.6 BUN/Creatinine Ratio 18.7 Random Glucose 107 mg/dl Calcium Level 7.8 mg/dl Total Bilirubin 0.7 mg/dl Direct Bilirubin 0.3 mg/dl Aspartate Amino Transf (AST/SGOT) 62 U/L Alanine Aminotransferase (ALT/SGPT) 100 U/L Alkaline Phosphatase 154 U/L Total Protein 5.7 gm/dl Albumin 2.0 gm/dl Globulin 3.7 gm/dl Albumin/Globulin Ratio 0.5 Lipase 402 U/L Assessment and Plan Mr. Bacon is a 67 y/o male with an unremarkable PMHx who was found to have acute cholecystitis due to cholelithiasis and biliary sludge. MRCP suggests choledocholithiases in the proximal CBD. Acute Necrotizing Cholecystitis with Cholelithiasis/Biliary Sludge and Choledocholithiasis: - POD # 3 Lap cholecystectomy - Pain resolved, fevers resolved, minimal drainage noted in drain - ERCP scheduled 02/27, 2 stones removed, stent placed - Due to likely necrotizing cholecystitis, completed 4 days of unasyn and discharged on augmentin - GI and general surgery consultation appreciated and will f/u on discharge Bilirubinemia - Resoled after ERCP, likely from stones Hypertensive BPs: controlled now - No documented history of hypertension and not on any medications - may possibly be pain response vs undiagnosed - Hydralazine PRN- Will continue to monitor Discharge planning: home
== END 2017-02-28 12:42 | disposition home or self-care (01) | DRG 418 ==
LOC: C.EDB 06:42 → C.MSW 10:32 → ENRESERV 11:06
PROVIDERS: ADMIT Surgery; ATTEND Surgery
PROC: 0FT44ZZ Resection of Gallbladder, Percutaneous Endoscopic Approach (ICD-10-PCS; principal; 2017-02-25 07:30)
PROC: 0F798DZ Dilation of Common Bile Duct with Intraluminal Device, Via Natural or Artificial Opening Endoscopic (ICD-10-PCS; 2017-02-27)
PROC: 0WC Anatomical Regions, General, Extirpation (ICD-10-PCS; 2017-02-27)
DX: K80.42 Calculus of bile duct with acute cholecystitis without obstruction (principal); K91.89 Other postprocedural complications and disorders of digestive system; R82.2 Biliuria; R03.0 Elevated blood-pressure reading, without diagnosis of hypertension; R74.0 Nonspecific elevation of levels of transaminase and lactic acid dehydrogenase [LDH]; R74.8 Abnormal levels of other serum enzymes; Z87.891 Personal history of nicotine dependence

== ENCOUNTER 2023-12-05 09:45 | Observation (INO) ==
--- NOTE | 2023-12-05 10:45 | History & Physical Bridge Note ---
Date of Service December 05, 2023 History & Physical Bridge Note I have examined the patient, reviewed the History & Physical and in the interval since the performance of the History & Physical I have noted the following changes of clinical significance: no changes noted Recent event concerning for ACS. New abnormality on echocardiogram. Symptoms include chest pain and dyspnea on exertion. He reports no changes since I saw him in the office. High pretest probability of coronary disease. Plan diagnostic coronary angiography plus or minus PCI as indicated.
--- NOTE | 2023-12-05 10:45 | Pre Anesthesia Assessment ---
Date of Service December 05, 2023 Pre Sedation Assessment Vital Signs Temp Pulse Resp BP Pulse Ox O2 Del Method 12/05/23 10:22 36.7 C 83 16 153/88 H 100 Room Air Cardiovascular RRR, no murmur, no edema Respiratory normal respiratory effort, lungs clear to auscultation Pre-Sedation Airway Assessment Smoking Status: Never smoker Hx Sleep Apnea: No Short, Thick Neck: No Thyromental Distance: > or= 3.5 Finger Breadths Oral Cavity: + WNL Mallampati Class: III ASA: ASA3 NPO Status Date of Last Intake of Fluids: 12/05/23 Time of Last Intake of Fluids: 07:00 Last Oral Intake of Fluids Comment: sips with pills Date of Last Intake of Solid Food: 12/04/23 Time of Last Intake of Solid Foods: 20:00 Notes The planned sedation has been discussed with the patient. Informed Consent was obtained. I have identified the patient, determined the appropriateness of sedation and have assessed the patient immediately prior to the procedure. All medicine(s) and interventions are by my order.
[2023-12-05] MEDS: fentaNYL citrate PF 100 MCG/2 ML VIAL ONE ×2 (13:33→13:35)
[2023-12-05] MEDS: niCARdipine HCL INJ 2.5 MG/ML 10 ML AMP ONE (13:34)
[2023-12-05] MEDS: OPTIRAY 350 ONE (13:34)
[2023-12-05] MEDS: MIDAZOLAM HCL 1 MG/ML 2ML VIAL ONE ×2 (13:34→13:35)
[2023-12-05] MEDS: NITROGLYCERIN/D5W 100MCG/ML 20ML SYR ONE (13:34)
[2023-12-05] MEDS: TICAGRELOR 90 MG TAB ONE (13:35)
[2023-12-05] MEDS: LIDOCAINE 1% LOCAL 20 ML VIAL ONE (13:35)
[2023-12-05] MEDS: HEPARIN (PORCINE) 1000 UNIT/ML 10 ML (CATH LAB USE ONLY) ONE ×2 (13:38→13:39)
--- NOTE | 2023-12-05 14:06 | Post Anesthesia Assessment ---
Date of Service December 05, 2023 Post Sedation Assessment Vital Signs Temp Pulse Resp BP BP Pulse Ox O2 Del Method 12/05/23 13:45 88 16 142/90 H 98 Room Air 12/05/23 10:22 36.7 C 83 16 153/88 H 100 Room Air Recovery Score Activity: Moves 4 extremities Respiration: Deep Breath/Cough Circulation: +/-20% PreAnes Value Consciousness: Fully Awake Oxygen Saturation: > 92% On Room Air Post Anesthesia Score: 10 Discharge Sedation Level of Care: Fast Track Phase II Post Sedation Plan On clinical assessment, the patient appears to have tolerated the sedation without complications. Patient is recovering as anticipated. Patient will continue to be monitored by nursing and may be discharged when sedation discharge criteria are met per below protocol. Upon Completions of procedure up to 15 minutes continue every 5 minute vital signs and the P.A.R. score; then discharge to a Phase I or Fast Track to Phase II per the following guidelines: * Discharge Patient to appropriate Phase II area if PAR is 8 or greater or return to pre- procedure baseline. The post - procedure orders will be as directed. * If PAR score is less than 8 or not return to pre-procedure baseline then patie nt will follow Phase I monitoring till PAR is reached for Phase II. The Phase I may be done in procedure room or may call to secure a Phase I area. * If naloxone or flumazenil are used for reversal, hold in Phase I for continued monitoring from when last reversal dose was given for a minimum of 60 minutes or longer pending the nurse and/or physician discretion of patient condition before discharge to Phase II. Please call the Sedation Physician to re-evaluate and complete post-note for discharge to Phase II area. Do NOT discharge from procedure sedation or Phase 1 until post- sedation ev aluation note is complete by procedure /sedation MD Sedation Discharge Instructions to be given to the patient at discharge to home. [facility] Procedure Codes (Charges) Indication for Procedure Indication for procedure: ANGINA CLASS IV Sedation/Anesthesia Procedure 1: Sedation/Anesthesia: 17267 Mod Sedation by the same physician;Init15 Min Child Age 5 & Up (INITIAL 15 MIN ,START 1214) Total Sedation Time (minutes): 81 Procedure 2: Sedation/Anesthesia: 10405 Mod Sedation by the same physician; Ea [id number] Minutes (ADDITIONAL 66 MIN) Total Sedation Time (minutes): 81
[2023-12-05] MEDS: ATORVASTATIN 40 MG TAB PO SCH (15:49)
[2023-12-05] MEDS: TICAGRELOR 90 MG TAB PO SCH (20:17)
[2023-12-05] MEDS: METOPROLOL TARTRATE 25 MG TAB PO SCH (20:18)
[2023-12-05] MEDS: rifAXIMin 550 MG TABLET PO SCH (20:53)
--- NOTE | 2023-12-06 06:06 | Electrocardiogram Report ---
Test Reason : Blood Pressure : / mmHG Vent. Rate : 081 BPM Atrial Rate : 081 BPM P-R Int : 212 ms QRS Dur : 098 ms QT Int : 390 ms P-R-T Axes : 058 008 -53 degrees QTc Int : 453 ms Sinus rhythm with 1st degree A-V block Inferior infarct , age undetermined T wave abnormality, consider lateral ischemia Abnormal ECG When compared with ECG of 05-MAR-2021 13:34, Inferior infarct is now Present T wave inversion now evident in Inferior leads T wave inversion now evident in Anterolateral leads Confirmed by Schuyler Wheatley ([id number]) on 12/06/2023 6:06:32 AM Referred By: Jonn Grace Confirmed By:Michael Wheatley
[2023-12-06 06:26] LABS: Basophils # (auto) 0.03 K/uL (0.00-0.20); Basophils % (auto) 0.4 %; Eosinophils % (auto) 2.4 %; Hematocrit (blood only) 39.8 % (42.0-52.0); Immature Granulocytes # (auto) 0.04 K/uL (0.01-0.20); Immature Granulocytes % (auto) 0.5 %; Lymphocytes % (auto) 16.8 %; Mean Corpuscular Hemoglobin 30.8 pg (25.0-34.0); Mean Corpuscular Hgb Conc 35.2 g/dL (32.0-36.0); Mean Corpuscular Volume 87.5 fL (80.0-100.0); Mean Platelet Volume 8.5 fL (9.4-12.4); Monocytes % (auto) 7.2 %; Neutrophils # (auto) 6.05 K/uL (1.40-6.50); Neutrophils % (auto) 72.7 %; Platelet Count 330 K/uL (130-400); RDW Coefficient of Variation 11.9 % (11.5-14.5); RDW Standard Deviation 38.4 fL (36.4-46.3); Red Blood Count 4.55 M/uL (4.70-6.10); White Blood Count 8.32 K/ul (4.8-10.8)
[2023-12-06 06:32] LABS: BUN Creatinine Ratio 14.4 (10-20); Calcium 8.9 mg/dl (8.6-10.3); Creatinine Clr Calc Pharmacy 77.3 ml/min; Est GFR (Non-African American) 69.9 ml/min; Potassium 3.7 mmol/L (3.5-5.1)
[2023-12-06] MEDS: ASPIRIN 81 MG ECTAB PO SCH (08:23)
--- NOTE | 2023-12-06 15:17 | Discharge Summary ---
Date of Service December 06, 2023 Admission HPI Per Admitting Provider Patient presented as an outpatient to undergo diagnostic coronary angiography for typical anginal symptoms and stress test concerning for myocardial ischemia. He underwent that yesterday and required 3 stents in the left circumflex. He tolerated the procedure well and we kept him overnight to make sure that he would tolerate his new medications. Overnight the patient had no symptoms or events. Admission Exam (Per Admitting) Constitutional WD/WN, vitals as above Eyes Extraocular muscles intact. Sclera are anicteric. ENMT Oral mucosa is pink moist and intact Neck No JVD Respiratory Clear to auscultation bilaterally. No wheezing, rhonchi, or rales. Cardiovascular Regular rate and rhythm. S4 gallop. Do not appreciate any rubs or murmurs. No edema. Musculoskeletal no cyanosis or clubbing, extremities motor strength 5/5 Neurologic Cognition intact. Speech speech is fluent. Mildly diminished hearing. No focal deficits. No tremor. Ambulates normally. Psychiatric A+Ox3, euthymic affect Discharge Data Consultations 12/05/23 13:59 Consult Cardiac Rehabilitation Routine Procedures Performed Operation Date: 12/05/23 11:00 Actual Procedures p Cineradiography w/Routine Exam - Jonn Grace MD, PhD p Drug Eluting Stent SGl Vessel - Jonn Grace MD, PhD p Cath, Coronaries ONLY (no LV) - Jonn Grace MD, PhD s Ultrasound Vascular Access - Jonn Grace MD, PhD s Placement Art Occlusive Device - Jonn Grace MD, PhD Hospital Course (1) Abnormal stress test: Severe CAD of the circumflex culprit for likely recent [place]. Status post PCI with 3 overlapped drug-eluting stents. He will remain on dual antiplatelet therapy with aspirin 81 mg daily and Brilinta 90 mg p.o. twice daily. He will also remain on guideline directed medical therapy for secondary prevention including high intensity statin (atorvastatin 40 mg), metoprolol tartrate 25 mg p.o. twice daily and if his blood pressure is elevated in the near future we will add additional blood pressure medications. He has an allergy to CAMERON inhibitors including hives and therefore angiotensin receptor vaishali may also not be tolerated. He is planned for cardiac rehab as an outpatient. He will follow-up with me within 1 to 2 weeks after discharge. Plan Patient admitted under observation status status post PCI of the circumflex. No events. Remained hemodynamically stable. Tolerated his new medical regimen. After examination the day following admission he was deemed appropriate for discharge. Coding Level of Care Code 51979 INP/OBS DISCH >30 MIN Diagnoses Abnormal stress test R94.39 Time Spent (min) 40
--- NOTE | 2023-12-07 12:17 | Cardiac Catheterization ---
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 Clinical evaluation leading to the procedure CAD Presenation: Unstable angina Anginal Classification: CCS IV Heart Failure: Yes Cardiogenic Shock within 24 Hours: No Cardiac Arrest within 24 Hours: No Imaging Studies Past 6 Months: Yes Stress Studies Past 6 Months: No Coronary Anatomy Dominant: Right Left Main (% Stenosis): Distal (20%) LAD (% Stenosis): Mid (30%) and Distal (30 to 40%) D1 (% Stenosis): Normal (Up to 40%) Circumflex (% Stenosis): Mid (90 to 95%) and Distal (Early 50 to 70%, distal 95 to 99%) OM1 (% Stenosis): Normal OM2 (% Stenosis): Normal OM3 (% Stenosis): Normal L PL1 (% Stenosis): Normal RCA (% Stenosis): Proximal (40 to 50%), Mid (Luminal irregularities) and Distal (Early focal 50 to 70% and 50 to 60% before the bifurcation) R PDA (% Stenosis): Proximal (50%) R PL1 (% Stenosis): Normal Diagnostic Physicians Name: Jonn Grace MD, PhD Closure Device Percutaneous Entry Location: Radial and femoral Closure Device: Angio-Seal and Radial Band Recommendations: Medical Therapy and/or Counseling and PCI without planned CABG PCI Indication: Unstable Angina Lesion Segment Name: Mid through distal circumflex Culprit Artery: Yes Stenosis Prior to Rx (%): 95 to 99% Chronic Total Occlusion: No Pre-Procedure YESENIA Flow: 2 Previously Treated Lesion: No Lesion Complexity: High/C Lesion Length (mm): 25+ Thrombus Present: No Bifurcation Lesion: Yes Guidewire Across Lesion: Yes Cardiac Cath Procedure Full Procedure Date December 05, 2023 Pre-Procedure Diagnosis Pre-Procedure Diagnosis: Acute Coronary Syndrome AUC Score AUC Score: 07 Post-Procedure Diagnosis Post-Procedure Diagnosis: Severe CAD and Successful PCI Procedure(s) Performed Procedure(s) Performed: Coronary Angiography, Drug Eluting Stent, Ultrasound Guided Vascular Access and Fractional Flow [place] [employer] Jonn Grace MD, PhD Estimated Blood Loss Estimated Blood Loss: 10 cc Medication(s) Medication(s): Fentanyl, Heparin, Lidocaine 1%, Nicardipine, Nitroglycerin and Versed Summary of Findings Brief description: Patient was brought to the cardiac catheterization suite where he was shaved and prepped in a sterile fashion. Sedated using IV Versed and fentanyl. Soft tissues of the right wrist were anesthetized using 2 mL of 1% Xylocaine. The right radial artery was accessed using modified Seldinger technique and a 6 Greek radial artery glide sheath was placed. Patient was provided anticoagulation with IV heparin and antispasmodics including nicardipine and nitroglycerin. All catheters were advanced and exchanged over a 0.035 J-tip wire. Left coronary angiography was performed in orthogonal views with a 5 Greek [place] 4 diagnostic catheter. Right coronary angiography was performed in orthogonal views with a 5 Greek JR4 diagnostic catheter. Decision was made to proceed with PCI of the circumflex and possibly a IFR analysis of the RCA. Diagnostic catheters were removed. We attempted to advance a 6 Greek EBU 3.0 guide catheter. However, because of the tortuosity in the innominate we could not deliver this catheter. Decision was made to attempt this using a 5 Greek EBU 3.5 guide catheter. We were able to engage the left main. However, we were unsuccessful in passing a wire into the distal circumflex. Wires attempted included a BMW universal, a run-through wire, and then the run-through was also advanced over a 2.0 x 12 mm trek balloon to strengthen backup support. However, this was unsuccessful and a guide liner was not an option because of the need for a 5 Greek guiding catheter. We therefore decided to abandon radial artery approach and attempt from the femoral artery approach. Soft tissues of the right groin were anesthetized using 10 mL of 1% Xylocaine. Using the ultrasound for guidance, the right femoral artery was accessed and a 6 Greek femoral artery sheath was placed. All catheters were advanced and exchanged over a 0.035 J-tip wire. ACT was checked and additional heparin was provided. This was repeated throughout the case as needed to maintain therapeutic anticoagulation. A 6 Greek EBU 3.5 guide catheter was advanced and used to engage the left main coronary. Through this we advanced the run-through catheter but we could not position it distally because of the severity of stenosis in the circumflex. It was then therefore exchanged for an [employer] coronary guide catheter and we again used a 2.0 x 12 mm mini trek balloon for backup support. Fortunately, we were able to advance this wire and positioned it distally in the circumflex beyond the lesions. The 2.0 x 12 mm mini trek balloon was then used to predilate the lesion proximally at 14 followed by 17 rafy. The distal lesion was predilated with the same balloon at 8 rafy. A 2.25 x 18 mm Vasiliy drug-eluting stent was advanced and positioned across the distal lesion where it was deployed at 12 rafy. Stent balloon was removed. A 2.25 x 12 mm [place] drug-eluting stent was advanced across the lesion proximally where it was deployed at 16 rafy. Stent balloon was removed. Cut Off Machine Unloader angiography was performed. The small branch vessel arising from the mid segment was overlapped and made evaluation of the mid vessel lesion difficult. We therefore changed angle and after angiography revealed that this lesion was likely worse than originally appreciated. Therefore, we advanced a 2.25 x 22 mm Vasiliy drug-eluting stent across the lesion spanning from the distal portion of the proximal stent to the proximal portion of the distal stent. It was deployed at 14 rafy. Postdilatation of the proximal overlapped segment was performed with the stent balloon at 16 rafy. The balloon was then removed. Cut Off Machine Unloader angiography was again repeated. The guidewire was then removed and final angiographic evaluation was performed. Guide catheter then removed. We next proceeded with IFR analysis of the RCA lesion. A 6 Greek JR4 guide catheter was used to engage the right coronary. Omni Doppler wave wire was advanced and positioned with its transducer just distal to the guide catheter tip. System was flushed with normal saline and the pressures were normalized. Guidewire was then advanced with the transducer distal to the lesion of interest. iFR was then sampled 3 times. The guidewire was then removed. Final angiographic evaluation was performed. Guide catheter was removed. Limited right femoral artery angiography was performed to evaluate for closure. Findings were favorable, therefore, the femoral artery sheath was exchanged for a 6 Greek Angio-Seal closure device. This was deployed in the recommended fashion. We obtained immediate hemostasis and the patient remained hemodynamically stable. The radial artery sheath was then removed and hemostasis was obtained using the TR band. Patient was returned to the recovery area in stable condition and asymptomatic. Plan for overnight observation given complexity of his procedure. This ended the case. Coronary angiography findings: [id number] vessel bifurcating into the LAD and circumflex. Distal 20% stenosis with mild calcification. HNC-[id number]-sknyxpf and transapical vessel. Gives a large branching first diagonal and multiple septal branches. The diagonal arises high off the LAD. Proximal segment of the LAD has no disease. The mid segment has up to 30% stenosis. Distally there is scattered mild blockages of up to 30 to 40%. Diagonal has scattered disease up to 40%. LCx-this is large caliber and nondominant. Travels in the AV groove where it has mild calcification. First branch is an atrial branch. First obtuse marginal is medium caliber and without significant disease. Just after this the mid segment has a focal 95% stenosis. Then, there is a small caliber OM 2 and a small caliber long OM 3 which travels very closely with the AV groove circumflex. There is a lesion in this segment (early distal) appearing to be 50 to 70% stenosed. There is then a small to medium caliber OM 4 after which the distal AV groove circumflex has a long stenosis of 95 to 99%. The vessel then essentially becomes a large and long posterior lateral branch without significant disease. There is YESENIA II flow in the circumflex. This is the culprit vessel for recent suspected ACS and new wall motion abnormalities noted on echocardiogram. RCA-this is large caliber and dominant. Proximally he has diffuse 40 to 50% stenosis. The mid segment has mild plaques of 20% and then the early distal vessel has a focal 50 to 70% stenosis. Then at the bifurcation there is a 50 to 60% stenosis. There is a large caliber long PDA with proximal 50% narrowing and a large caliber multi branching posterolateral branch without significant disease. PCI of circumflex-there is 0% residual stenosis post PCI following implantation of 3 overlapped drug-eluting stents. YESENIA-3 flow post PCI No evidence of dissection or perforation post PCI IFR of early distal RCA-0.93, 0.96, 0.93. Therefore, lesion is not hemodynamically significant. No dissection or perforation post IFR analysis YESENIA-3 flow post IFR analysis Summary: 1. Patient has multivessel coronary artery disease as described. Culprit vessel is the circumflex with multiple lesions. Angiographically borderline RCA stenosis. 2. IFR analysis of the RCA demonstrates that this lesion is not hemodynamically significant. 3. Successful PCI with implantation of 3 overlapped drug-eluting stents in the circumflex. 4. Patient will remain on dual antiplatelet therapy for at least 1 to 2 years given the extent of his stenting. 5. Patient will be on guideline directed medical therapy for secondary prevention of coronary disease to include aspirin, statin at high levels, beta-vaishali. Hemodynamics Rest Ao:: 111/67 mmHg Final Ao: 146/71 mmHg LV: Not performed Recommendations Recommendations: Medical Therapy and/or Counseling and PCI without planned CABG Radiation Exposure (mGy) 4243 mGy, fluoroscopy time 25.3 minutes Contrast (mls) 260 mL Anesthesia 4 mg Versed, 125 mcg fentanyl IV. 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 Any exceptions are noted below. [facility] Card Cath Procedure Codes Cardiac Catheterization Procedure 1: Cardiovascular Cath Procedures: 63550 Coronaries Procedure 2: Cardiovascular Cath Procedures: 80783 (Doppler) Pressure Wire (RCA) Therapeutic Services & Ancillary Procedure 1: Cardiovascular Tx and Anc Procedures: 31425 Ultrasonic Guidance Vascular Access Moderate Sedation Procedure 1: Sedation/Anesthesia: 56185 Mod Sedation by the same physician;Init15 Min Child Age 5 & Up (Initial 15 min, start time 1214) Procedure 2: Sedation/Anesthesia: 85993 Mod Sedation by the same physician; Ea [id number] Minutes (Additional 66 min, end time 1335) Stenting Procedure 1: Cardiovascular Stent Procedures: 87552 Perc transcatheter placement of intracoronary stent(s), with ang (Left circumflex) PG Care Time/CCT Total # of Minutes Spent Total Time Spent with Patient: Total time spent is greater than 50% in coordination of care (as documented) at patient's floor/unit and/or counseling patient:
== END 2023-12-06 10:30 | disposition home or self-care (01) ==
LOC: 2E 09:45 → CC 09:45
PROC: CLB.CCO (2023-12-05 11:00)

== ENCOUNTER 2024-01-06 05:41 | Observation (INO) ==
[2024-01-06 06:11] LABS: Base Excess VBG -1.5 mEq/L; HCO3 VBG 24 mmol/L; Oxygen Saturation VBG < 60.0 %; PCO2 VBG 44 mmHg (38-50); PO2 VBG < 20 mmHg; pH VBG 7.35 (7.36-7.41)
[2024-01-06 06:27] LABS: Basophils # (auto) 0.03 K/uL (0.00-0.20); Basophils % (auto) 0.3 %; Eosinophils # (auto) 0.19 K/uL (0.00-0.50); Eosinophils % (auto) 1.9 %; Hematocrit (blood only) 43.5 % (42.0-52.0); Hemoglobin 14.9 g/dl (14.0-18.0); Immature Granulocytes # (auto) 0.03 K/uL (0.01-0.20); Immature Granulocytes % (auto) 0.3 %; Lymphocytes # (auto) 0.69 K/uL (1.20-3.40); Lymphocytes % (auto) 6.9 %; Mean Corpuscular Hemoglobin 30.9 pg (25.0-34.0); Mean Corpuscular Hgb Conc 34.3 g/dL (32.0-36.0); Mean Corpuscular Volume 90.2 fL (80.0-100.0); Mean Platelet Volume 8.8 fL (9.4-12.4); Monocytes # (auto) 0.08 K/uL (0.11-0.59); Monocytes % (auto) 0.8 %; Neutrophils # (auto) 8.98 K/uL (1.40-6.50); Neutrophils % (auto) 89.8 %; Platelet Count 247 K/uL (130-400); RDW Coefficient of Variation 12.7 % (11.5-14.5); RDW Standard Deviation 41.2 fL (36.4-46.3); Red Blood Count 4.82 M/uL (4.70-6.10)
--- NOTE | 2024-01-06 06:31 | Emergency Department Note ---
Impression & Plan Flash pulmonary edema, Acute CHF, History of ischemic cardiomyopathy ED Provider Note NAME: ARNOLDO SYED AGE: 73 SEX: M : 1950 ARRIVES VIA: Walk-In INFORMANT: [Patient][, ] ED PROVIDER(S): [David Amaral MD] CHIEF COMPLAINT: Shortness of breath MEDICAL DECISION MAKING: Patient's blood work shows a normal white count H&H and platelet count. The patient's gas is unremarkable. Lactate of 2.9 glucose of 150 electrolytes grossly unremarkable mag 1.7 additional mag ordered. Troponin of 23.7 with a BNP of 391 Pro-Dariel is negative. Chest x-ray does show concern for pulmonary edema. D-dimer is positive but the patient does show evidence of signs of left- sided failure given his pulmonary edema and I believe PE to be less likely. Do not think that the patient is stabilized to go to CT at this time. I did speak with the on-call hat brim and crown laminating operator Dr. Wheatley in order to help obtain a stat echocardiogram. This was completed around 705. I did rediscuss with Dr. Wheatley again he states Dr. Rosas will see the patient. I did send a message to Dr. Rosas. I also did rediscuss with Dr. Wheatley who states at 730 that he has not been able to reach one of the echo techs. I did speak with the nurse as well as the live ammunition inspector in order to help patient him to have a stat echo completed. Just prior to this I did speak with the admitting hospitalist service Dr. Pearson our that the patient will be seen by Dr. Guzman. Patient was taken off the BiPAP and the patient was able to tolerate having the echo completed. I did speak with Dr. Wheatley stated the patient did have a decreased EF compared to prior but there was no concern for VSD or valvular concern. I did convey these recommendations and findings to Dr. Guzman. Decision was made to heparinize the patient. Patient was admitted to the medicine service with cardiology consultation. Dr. Rosas did evaluate the patient at bedside. Critical Care: I have personally spent 120 minutes of critical care time in direct management of this patient. This includes bedside care, interpretation of diagnostic studies, and testing, discussion with consultants, patient, and family members, and other require inpatient management activities. This 120 minutes is in excess of all separately billable procedures. Procedures: Limited Point of Care Cardiac Ultrasound performed by me: Indication: Shortness of breath Findings: Limited echocardiography revealed no significant pericardial fluid. LV with possible decreased function. Septum appears to be intact. HR 130s . Additional findings: B-lines bilaterally concerning for pulmonary edema Impression: Acute decompensated CHF Discussion w/ other healthcare providers: Dr. Wheatley/Dr. Rosas with cardiology Dr. Celestin/Dr. Guzman with inpatient medicine service Prior /Outside records reviewed: I reviewed a primary care visit from [facility] a known history of CAD and ischemic cardiomyopathy. I reviewed a cardiology visit from December 10, 2023. History of CAD status post left circumflex PCI. No active chest pain most recent echo November 27, 2019 2430 and 45 to 50%. He did have 3 overlapping stents. Differential diagnosis: Reactive airway disease, pneumonia, pneumothorax, COPD, CHF, ACS, pulmonary embolism, musculoskeletal, GERD as well as other pathologies were considered. Diagnostics, as interpreted by me: ECG: Sinus tachycardia, rate of 127, normal intervals, normal axis no ST elevationsT wave inversions noted inferiorly and laterally. This appears grossly unchanged from comparison EKG completed December 05, 2023 Cardiac monitoring: An order was placed for continuous cardiac monitoring. The monitor shows a rate of 125 with tachycardic and regular rhythm. [Patient was placed on pulse oximetry] Medical decision rules: [none] Imaging studies: [I informally interpreted the patient's chest x-ray does show concern for pulmonary edema with formal report to follow.] [] HPI: Patient presents due to concern for shortness of breath that began last evening and seem to be worsening this morning. The patient has had cough with productive phlegm. The patient does have a prior history of recent CAD and stent placement in November with Dr. Grace. Patient denies any chest pains. He did have some recent travel but stated [place] [employer] [place] The patient denies any leg swelling or calf pain no fevers or chills. Patient denies any leg swelling. PAST MEDICAL HISTORY: [See Below] PAST SURGICAL HISTORY: [See Below] SOCIAL HISTORY: [See Below] HOME MEDICATIONS: [See Below] ALLERGIES: [See Below] VITALS: [See Below] PHYSICAL EXAMINATION: GENERAL: Moderate distress, tachypnea noted. Shallow breathing EYE EXAM: Normal conjunctiva. PERRL, no anisocoria and EOM's grossly intact w/o pain. OROPHARYNX: Moist mucus membranes, grossly normal dentition. NECK: Trachea midline, no stridor. [Supple, no nuchal rigidity, no adenopathy, non-tender. No signs of meningismus. FROM of the neck with good chin to chest and neck extension.] LUNGS: Wheezing throughout. Normal chest wall mechanics. HEART: Tachycardic and regular, no MRG. ABDOMEN: Abdomen soft, non-tender, no masses, no rebound or guarding. BACK: No CVA TTP. SKIN: No rashes and no bruising. UPPER EXTREMITIES: Upper extremities are grossly normal. LOWER EXTREMITIES: Grossly normal, no edema. NEURO EXAM: A&O x3, cranial nerves II-XII grossly intact, normal speech, moves all 4 extremities. Past Med/Surg History Problem List (Updated 01/06/24 @ 14:04 by David Amaral MD) Hypercholesterolemia CAD (coronary artery disease) History of ischemic cardiomyopathy (Acute) Acute CHF (Acute) Flash pulmonary edema (Acute) Wears hearing aid in both ears O[employer]on Real 2 miniRITE disp 04/2023 Sleep apnea Insomnia Vitamin D deficiency Syncope Hypertension (Chronic) Postcholecystectomy syndrome Chronic diarrhea Health care maintenance Screening for prostate cancer Hyperglycemia Sensorineural hearing loss (SNHL) AD: Mod HF SNHL, : Sev. HF SNHL Medical History Chest pain Abnormal stress test Colon cancer screening Encounter for pre-operative examination Cataracts, bilateral No known health problems Choledocholithiasis Surgical History Hx of tonsillectomy History of ERCP (~2018) History of colonoscopy History of tonsillectomy History of cholecystectomy LAP Family History Grandmother (Paternal) Family history of diabetes mellitus Father Family history of diabetes mellitus Myocardial infarction Brother Family history of diabetes mellitus Mother Myocardial infarction Other No family history of adverse response to anesthesia Denies family history of Ovarian cancer Prostate cancer Breast cancer Colorectal cancer Social History Smoking Status: Former smoker Second Hand Exposure: Yes; Do You Dip or Chew Tobacco: No; Hx Alcohol Use: No Hx Substance Use: No Preferred Language: Turkmen Communication Ability: Effective Visual Impairment: No Limitations Hearing Ability: Use of Hearing Aid Principal Java Developer Required: No Beliefs That Will Affect Care: None marital status: Current Living Situation: Spouse current occupational status: retired How many Children do You have: 4 How many Children do You have Comment: 4 girls Feels Safe at Home: Yes Childhood Exposure to Second-Hand Smoke: Yes Diet: regular during the past year weight has: remained stable Dental Care, Regularly: Yes Physical Activity Frequency: Daily Seatbelt Use: always Sunscreen Use: No Assistive Devices: None Allergies Allergies Allergy/AdvReac Type Severity Reaction Status Date / Time lisinopril Allergy Severe hives Verified 12/12/23 14:50 Home Meds Home Medications Medication Instructions Recorded Confirmed ibuprofen 200 mg tablet (Advil) 400 mg PO DIRECTED PRN Pain 03/05/21 01/06/24 amlodipine 5 mg tablet 0 mg PO BID 01/06/24 01/06/24 Previous Rx's Medication Instructions Recorded fluticasone propionate 50 2 spray intranasal BID PRN nasal 07/26/21 mcg/actuation nasal congestion #16 grams spray,suspension (Flonase Allergy Relief) loratadine 10 mg tablet (Claritin) 10 mg PO DAILY #30 tabs 07/26/21 sildenafil 50 mg tablet 50 mg PO DAILY PRN sexual activity 04/04/23 #10 tabs aspirin 81 mg tablet,delayed 81 mg PO QAM #90 tabs 12/06/23 release atorvastatin 40 mg tablet 40 mg PO QAM #90 tabs 12/06/23 metoprolol tartrate 25 mg tablet 25 mg PO BID #180 tabs 12/06/23 ticagrelor 90 mg tablet (Brilinta) 90 mg PO BID #180 tabs 12/06/23 Results & Data (ED) Vital Signs Vital Signs - 24 hr 01/06/24 05:44 01/06/24 05:57 01/06/24 06:02 Temperature 37.2 C Temperature Source Temporal Artery Scan Pulse Rate 132 H 126 H Pulse Rate [Apical] 124 H Pulse Rhythm Regular Pulse Rhythm [Apical] Regular Pulse Strength Normal Pulse Strength [Apical] Normal Respiratory Rate 40 H 26 H Respiratory Effort / Characteristics Non-Labored Spontaneous Spontaneous Labored Short of Breath Respiratory Depth Normal Normal Respiratory Pattern Regular Tachypnea Blood Pressure 181/123 H Blood Pressure [Left Arm] 175/124 H Blood Pressure [Right Arm] Blood Pressure Mean 142 Blood Pressure Mean [Left Arm] 141 Blood Pressure Mean [Right Arm] Blood Pressure Position Sitting Blood Pressure Position [Left Arm] Semi-fowlers Blood Pressure Position [Right Arm] Pulse Oximetry 96 96 Oxygen Delivery Method Room Air Room Air Oxygen Flow Rate Fraction of Inspired Oxygen SaO2/FiO2 Ratio Sepsis Recent Fever Within 48 Hours No Sepsis New/Unexplained Change in Mental Status N/A Sepsis Action Taken by Nursing No Action Required 01/06/24 06:02 01/06/24 06:06 01/06/24 06:20 Temperature Temperature Source Pulse Rate 126 H Pulse Rate [Apical] Pulse Rhythm Regular Pulse Rhythm [Apical] Pulse Strength Pulse Strength [Apical] Respiratory Rate 28 H Respiratory Effort / Characteristics Spontaneous Labored Short of Breath Respiratory Depth Deep Respiratory Pattern Tachypnea Blood Pressure Blood Pressure [Left Arm] Blood Pressure [Right Arm] Blood Pressure Mean Blood Pressure Mean [Left Arm] Blood Pressure Mean [Right Arm] Blood Pressure Position Blood Pressure Position [Left Arm] Blood Pressure Position [Right Arm] Pulse Oximetry 95 96 Oxygen Delivery Method Room Air Room Air Room Air Oxygen Flow Rate 0 Fraction of Inspired Oxygen SaO2/FiO2 Ratio Sepsis Recent Fever Within 48 Hours Sepsis New/Unexplained Change in Mental Status Sepsis Action Taken by Nursing 01/06/24 06:30 01/06/24 06:58 01/06/24 07:00 Temperature Temperature Source Pulse Rate 127 H Pulse Rate [Apical] 115 H 126 H Pulse Rhythm Pulse Rhythm [Apical] Pulse Strength Pulse Strength [Apical] Respiratory Rate 22 25 H 16 Respiratory Effort / Characteristics Spontaneous Spontaneous Non-Labored Respiratory Depth Deep Respiratory Pattern Tachypnea Blood Pressure Blood Pressure [Left Arm] 169/111 H 134/88 Blood Pressure [Right Arm] Blood Pressure Mean Blood Pressure Mean [Left Arm] 130 103 Blood Pressure Mean [Right Arm] Blood Pressure Position Blood Pressure Position [Left Arm] Blood Pressure Position [Right Arm] Pulse Oximetry 95 98 97 Oxygen Delivery Method Room Air BiPAP Oxygen Flow Rate Fraction of Inspired Oxygen 21 21 SaO2/FiO2 Ratio 461 Sepsis Recent Fever Within 48 Hours Sepsis New/Unexplained Change in Mental Status Sepsis Action Taken by Nursing 01/06/24 07:15 01/06/24 07:30 01/06/24 07:42 Temperature Temperature Source Pulse Rate 130 H Pulse Rate [Apical] 135 H 126 H Pulse Rhythm Pulse Rhythm [Apical] Pulse Strength Pulse Strength [Apical] Respiratory Rate 16 22 12 Respiratory Effort / Characteristics Respiratory Depth Respiratory Pattern Blood Pressure Blood Pressure [Left Arm] 126/96 146/93 H Blood Pressure [Right Arm] Blood Pressure Mean Blood Pressure Mean [Left Arm] 106 110 Blood Pressure Mean [Right Arm] Blood Pressure Position Blood Pressure Position [Left Arm] Blood Pressure Position [Right Arm] Pulse Oximetry 96 98 Oxygen Delivery Method BiPAP BiPAP Oxygen Flow Rate Fraction of Inspired Oxygen 21 21 SaO2/FiO2 Ratio 457 Sepsis Recent Fever Within 48 Hours Sepsis New/Unexplained Change in Mental Status Sepsis Action Taken by Nursing 01/06/24 08:01 01/06/24 08:05 01/06/24 08:15 Temperature Temperature Source Pulse Rate Pulse Rate [Apical] 126 H 122 H 120 H Pulse Rhythm Pulse Rhythm [Apical] Pulse Strength Pulse Strength [Apical] Respiratory Rate 32 H 32 H 20 Respiratory Effort / Characteristics Non-Labored Spontaneous Respiratory Depth Normal Respiratory Pattern Blood Pressure Blood Pressure [Left Arm] 87/70 L 108/73 120/73 Blood Pressure [Right Arm] Blood Pressure Mean Blood Pressure Mean [Left Arm] 75 84 88 Blood Pressure Mean [Right Arm] Blood Pressure Position Blood Pressure Position [Left Arm] Blood Pressure Position [Right Arm] Pulse Oximetry 94 95 95 Oxygen Delivery Method Room Air Room Air Room Air Oxygen Flow Rate Fraction of Inspired Oxygen SaO2/FiO2 Ratio Sepsis Recent Fever Within 48 Hours Sepsis New/Unexplained Change in Mental Status Sepsis Action Taken by Nursing 01/06/24 08:22 01/06/24 08:25 01/06/24 08:30 Temperature Temperature Source Pulse Rate Pulse Rate [Apical] 125 H 120 H 121 H Pulse Rhythm Pulse Rhythm [Apical] Pulse Strength Pulse Strength [Apical] Respiratory Rate 20 20 20 Respiratory Effort / Characteristics Non-Labored Spontaneous Non-Labored Spontaneous Non-Labored Spontaneous Respiratory Depth Normal Normal Normal Respiratory Pattern Regular Blood Pressure Blood Pressure [Left Arm] 147/76 H 110/75 97/78 L Blood Pressure [Right Arm] Blood Pressure Mean Blood Pressure Mean [Left Arm] 99 86 84 Blood Pressure Mean [Right Arm] Blood Pressure Position Blood Pressure Position [Left Arm] Blood Pressure Position [Right Arm] Pulse Oximetry 98 94 95 Oxygen Delivery Method Room Air Room Air Room Air Oxygen Flow Rate Fraction of Inspired Oxygen SaO2/FiO2 Ratio Sepsis Recent Fever Within 48 Hours Sepsis New/Unexplained Change in Mental Status Sepsis Action Taken by Nursing 01/06/24 08:35 01/06/24 08:45 01/06/24 08:49 Temperature Temperature Source Pulse Rate 158 H Pulse Rate [Apical] 116 H 122 H Pulse Rhythm Pulse Rhythm [Apical] Pulse Strength Pulse Strength [Apical] Respiratory Rate 20 20 Respiratory Effort / Characteristics Non-Labored Spontaneous Non-Labored Spontaneous Respiratory Depth Normal Normal Respiratory Pattern Blood Pressure Blood Pressure [Left Arm] 107/78 117/78 Blood Pressure [Right Arm] Blood Pressure Mean Blood Pressure Mean [Left Arm] 87 91 Blood Pressure Mean [Right Arm] Blood Pressure Position Blood Pressure Position [Left Arm] Blood Pressure Position [Right Arm] Pulse Oximetry 96 96 Oxygen Delivery Method Room Air Room Air Oxygen Flow Rate Fraction of Inspired Oxygen SaO2/FiO2 Ratio Sepsis Recent Fever Within 48 Hours Sepsis New/Unexplained Change in Mental Status Sepsis Action Taken by Nursing 01/06/24 09:00 01/06/24 11:45 01/06/24 12:00 Temperature Temperature Source Pulse Rate Pulse Rate [Apical] 116 H 103 H 93 H Pulse Rhythm Pulse Rhythm [Apical] Regular Regular Pulse Strength Pulse Strength [Apical] Normal Normal Respiratory Rate 20 Respiratory Effort / Characteristics Non-Labored Spontaneous Non-Labored Spontaneous Non-Labored Spontaneous Respiratory Depth Normal Respiratory Pattern Regular Regular Regular Blood Pressure Blood Pressure [Left Arm] 135/79 Blood Pressure [Right Arm] 122/77 115/80 Blood Pressure Mean Blood Pressure Mean [Left Arm] 97 Blood Pressure Mean [Right Arm] 92 91 Blood Pressure Position Blood Pressure Position [Left Arm] Blood Pressure Position [Right Arm] Lying Lying Pulse Oximetry 95 95 96 Oxygen Delivery Method Room Air Room Air Room Air Oxygen Flow Rate Fraction of Inspired Oxygen SaO2/FiO2 Ratio Sepsis Recent Fever Within 48 Hours Sepsis New/Unexplained Change in Mental Status Sepsis Action Taken by Nursing 01/06/24 12:15 01/06/24 12:30 01/06/24 12:45 Temperature Temperature Source Pulse Rate Pulse Rate [Apical] 93 H 93 H 90 Pulse Rhythm Pulse Rhythm [Apical] Regular Regular Regular Pulse Strength Pulse Strength [Apical] Normal Normal Normal Respiratory Rate Respiratory Effort / Characteristics Non-Labored Spontaneous Non-Labored Spontaneous Non-Labored Spontaneous Respiratory Depth Respiratory Pattern Regular Regular Regular Blood Pressure Blood Pressure [Left Arm] Blood Pressure [Right Arm] 111/75 114/75 117/74 Blood Pressure Mean Blood Pressure Mean [Left Arm] Blood Pressure Mean [Right Arm] 87 88 88 Blood Pressure Position Blood Pressure Position [Left Arm] Blood Pressure Position [Right Arm] Lying Lying Lying Pulse Oximetry 96 96 96 Oxygen Delivery Method Room Air Room Air Room Air Oxygen Flow Rate Fraction of Inspired Oxygen SaO2/FiO2 Ratio Sepsis Recent Fever Within 48 Hours Sepsis New/Unexplained Change in Mental Status Sepsis Action Taken by Nursing 01/06/24 13:00 01/06/24 13:15 01/06/24 13:30 Temperature Temperature Source Pulse Rate Pulse Rate [Apical] 88 81 94 H Pulse Rhythm Pulse Rhythm [Apical] Regular Regular Regular Pulse Strength Pulse Strength [Apical] Normal Normal Normal Respiratory Rate Respiratory Effort / Characteristics Non-Labored Spontaneous Respiratory Depth Respiratory Pattern Regular Blood Pressure Blood Pressure [Left Arm] Blood Pressure [Right Arm] 122/74 116/76 112/86 Blood Pressure Mean Blood Pressure Mean [Left Arm] Blood Pressure Mean [Right Arm] 90 89 94 Blood Pressure Position Blood Pressure Position [Left Arm] Blood Pressure Position [Right Arm] Lying Lying Lying Pulse Oximetry 99 99 99 Oxygen Delivery Method Room Air Room Air Room Air Oxygen Flow Rate Fraction of Inspired Oxygen SaO2/FiO2 Ratio Sepsis Recent Fever Within 48 Hours Sepsis New/Unexplained Change in Mental Status Sepsis Action Taken by Nursing 01/06/24 13:45 Temperature Temperature Source Pulse Rate Pulse Rate [Apical] 86 Pulse Rhythm Pulse Rhythm [Apical] Regular Pulse Strength Pulse Strength [Apical] Normal Respiratory Rate Respiratory Effort / Characteristics Respiratory Depth Respiratory Pattern Blood Pressure Blood Pressure [Left Arm] Blood Pressure [Right Arm] 116/73 Blood Pressure Mean Blood Pressure Mean [Left Arm] Blood Pressure Mean [Right Arm] 87 Blood Pressure Position Blood Pressure Position [Left Arm] Blood Pressure Position [Right Arm] Lying Pulse Oximetry 99 Oxygen Delivery Method Room Air Oxygen Flow Rate Fraction of Inspired Oxygen SaO2/FiO2 Ratio Sepsis Recent Fever Within 48 Hours Sepsis New/Unexplained Change in Mental Status Sepsis Action Taken by [facility] Medications Current Medication List: was personally reviewed by me Laboratory Data Attestation: I reviewed the patient's lab results. 01/06/24 05:56 01/06/24 05:56 Lab Results 01/06/24 01/06/24 01/06/24 Range/Units 05:56 06:09 07:05 WBC 10.00 (4.8-10.8) K/ul RBC 4.82 (4.70-6.10) M/uL Hgb 14.9 (14.0-18.0) g/dl Hct 43.5 (42.0-52.0) % MCV 90.2 (80.0-100.0) fL MCH 30.9 (25.0-34.0) pg MCHC 34.3 (32.0-36.0) g/dL RDW Std Deviation 41.2 (36.4-46.3) fL RDW Coeff of Nimisha 12.7 (11.5-14.5) % Plt Count 247 (130-400) K/uL MPV 8.8 L (9.4-12.4) fL Immature Gran % (Auto) 0.3 % Neut % (Auto) 89.8 % Lymph % (Auto) 6.9 % Dukes % (Auto) 0.8 % Eos % (Auto) 1.9 % Baso % (Auto) 0.3 % Neut # (Auto) 8.98 H (1.40-6.50) K/uL Lymph # (Auto) 0.69 L (1.20-3.40) K/uL Dukes # (Auto) 0.08 L (0.11-0.59) K/uL Eos # (Auto) 0.19 (0.00-0.50) K/uL Baso # (Auto) 0.03 (0.00-0.20) K/uL Immature Gran # (Auto) 0.03 (0.01-0.20) K/uL PT 11.8 (9.0-12.0) Seconds INR 1.1 (0.9-1.1) APTT 25 (21-31) Seconds PTT Ratio 0.9 Activ Coag Time Kaolin (94-140) SECONDS D-Dimer 1520 H* (0-500) ug/L FEU VBG pH 7.35 L (7.36-7.41) VBG pCO2 44 (38-50) mmHg VBG pO2 < 20 mmHg VBG HCO3 24 mmol/L VBG O2 Saturation < 60.0 % VBG Base Excess -1.5 mEq/L Sodium 140 (136-145) mmol/L Potassium 4.1 (3.5-5.1) mmol/L Chloride 107 (98-107) mmol/L Carbon Dioxide 23 (21-32) mmol/L Anion Gap 10 (3-11) BUN 15 (6-23) mg/dl Creatinine 1.32 (0.6-1.4) mg/dl Est Cr Clr Drug Dosing 61.6 ml/min Est GFR ( Amer) 60.7 ml/min Est GFR (Non-Af Amer) 52.4 ml/min BUN/Creatinine Ratio 11.4 (10-20) Glucose 150 H (70-99(Fasting)) mg/dl Lactate (0.4-2.0) mmol/L Calcium 9.4 (8.6-10.3) mg/dl Magnesium 1.7 (1.7-2.4) mg/dl Total Bilirubin 0.6 (0.2-1.0) mg/dl AST 37 (13-39) U/L ALT 39 (7-52) U/L Alkaline Phosphatase 87 (34-104) U/L Troponin I High Sens 23.7 H (0-20) pg/ml B-Natriuretic Peptide 391 H (0-100) pg/ml Total Protein 7.2 (6.0-8.3) gm/dl Albumin 4.2 (3.4-5.0) gm/dl Globulin 3.0 (2.5-4.0) gm/dl Albumin/Globulin Ratio 1.4 (0.9-2) Procalcitonin 0.07 (0-0.5) ng/ml Urine Color Yellow Urine Appearance Clear (Clear) Urine pH 6.0 (4.5-7.5) Ur Specific G[place]ad 1.015 (1.000-1.030) Urine Protein 1+ H (Negative) Urine Glucose (UA) Negative (Negative) Urine Ketones Negative (Negative) Urine Blood Negative (Negative) Urine Nitrite Negative (Negative) Urine Bilirubin Negative (Negative) Urine Urobilinogen Negative (Negative) Ur Leukocyte Esterase Negative (Negative) Urine WBC (Auto) 0-5 (0-5) /hpf Urine RBC (Auto) 3-5 H (0-2) /hpf U Hyaline Cast (Auto) 0-2 (0-2) /lpf U Epithel Cells (Auto) 0-2 (0-2) /hpf Urine Bacteria (Auto) None Seen (None Seen) Adenovirus (PCR) Not Detected (NotDetected) B. pertussis DNA (PCR) Not Detected (NotDetected) B.parapertussis DNA PCR Not Detected (NotDetected) C. pneumoniae DNA (PCR) Not Detected (NotDetected) Coronavirus OC43 (PCR) Not Detected (NotDetected) Coronavirus HKU1 (PCR) Not Detected (NotDetected) Coronavirus 229E (PCR) Not Detected (NotDetected) SARS-CoV-2 (PCR) Not Detected (NotDetected) Coronavirus NL63 (PCR) Not Detected (NotDetected) Human Metapneumovir PCR Not Detected (NotDetected) Influenza Type A (PCR) Not Detected (NotDetected) Influenza Type B (PCR) Not Detected (NotDetected) M. pneumoniae (PCR) Not Detected (NotDetected) Parainfluenza 1 (PCR) Not Detected (NotDetected) Parainfluenza 2 (PCR) Not Detected (NotDetected) Parainfluenza 3 (PCR) Not Detected (NotDetected) Parainfluenza 4 (PCR) Not Detected (NotDetected) RSV (PCR) Not Detected (NotDetected) Entero/Rhino (PCR) Not Detected (NotDetected) 01/06/24 01/06/24 01/06/24 Range/Units 07:07 08:39 09:32 WBC (4.8-10.8) K/ul RBC (4.70-6.10) M/uL Hgb (14.0-18.0) g/dl Hct (42.0-52.0) % MCV (80.0-100.0) fL MCH (25.0-34.0) pg MCHC (32.0-36.0) g/dL RDW Std Deviation (36.4-46.3) fL RDW Coeff of Nimisha (11.5-14.5) % Plt Count (130-400) K/uL MPV (9.4-12.4) fL Immature Gran % (Auto) % Neut % (Auto) % Lymph % (Auto) % Dukes % (Auto) % Eos % (Auto) % Baso % (Auto) % Neut # (Auto) (1.40-6.50) K/uL Lymph # (Auto) (1.20-3.40) K/uL Dukes # (Auto) (0.11-0.59) K/uL Eos # (Auto) (0.00-0.50) K/uL Baso # (Auto) (0.00-0.20) K/uL Immature Gran # (Auto) (0.01-0.20) K/uL PT (9.0-12.0) Seconds INR (0.9-1.1) APTT (21-31) Seconds PTT Ratio Activ Coag Time Kaolin (94-140) SECONDS D-Dimer (0-500) ug/L FEU VBG pH (7.36-7.41) VBG pCO2 (38-50) mmHg VBG pO2 mmHg VBG HCO3 mmol/L VBG O2 Saturation % VBG Base Excess mEq/L Sodium (136-145) mmol/L Potassium (3.5-5.1) mmol/L Chloride (98-107) mmol/L Carbon Dioxide (21-32) mmol/L Anion Gap (3-11) BUN (6-23) mg/dl Creatinine (0.6-1.4) mg/dl Est Cr Clr Drug Dosing ml/min Est GFR ( Amer) ml/min Est GFR (Non-Af Amer) ml/min BUN/Creatinine Ratio (10-20) Glucose (70-99(Fasting)) mg/dl Lactate 2.9 H* 1.5 (0.4-2.0) mmol/L Calcium (8.6-10.3) mg/dl Magnesium (1.7-2.4) mg/dl Total Bilirubin (0.2-1.0) mg/dl AST (13-39) U/L ALT (7-52) U/L Alkaline Phosphatase (34-104) U/L Troponin I High Sens 248.3 H* D (0-20) pg/ml B-Natriuretic Peptide (0-100) pg/ml Total Protein (6.0-8.3) gm/dl Albumin (3.4-5.0) gm/dl Globulin (2.5-4.0) gm/dl Albumin/Globulin Ratio (0.9-2) Procalcitonin (0-0.5) ng/ml Urine Color Urine Appearance (Clear) Urine pH (4.5-7.5) Ur Specific [place] (1.000-1.030) Urine Protein (Negative) Urine Glucose (UA) (Negative) Urine Ketones (Negative) Urine Blood (Negative) Urine Nitrite (Negative) Urine Bilirubin (Negative) Urine Urobilinogen (Negative) Ur Leukocyte Esterase (Negative) Urine WBC (Auto) (0-5) /hpf Urine RBC (Auto) (0-2) /hpf U Hyaline Cast (Auto) (0-2) /lpf U Epithel Cells (Auto) (0-2) /hpf Urine Bacteria (Auto) (None Seen) Adenovirus (PCR) (NotDetected) B. pertussis DNA (PCR) (NotDetected) B.parapertussis DNA PCR (NotDetected) C. pneumoniae DNA (PCR) (NotDetected) Coronavirus OC43 (PCR) (NotDetected) Coronavirus HKU1 (PCR) (NotDetected) Coronavirus 229E (PCR) (NotDetected) SARS-CoV-2 (PCR) (NotDetected) Coronavirus NL63 (PCR) (NotDetected) Human Metapneumovir PCR (NotDetected) Influenza Type A (PCR) (NotDetected) Influenza Type B (PCR) (NotDetected) M. pneumoniae (PCR) (NotDetected) Parainfluenza 1 (PCR) (NotDetected) Parainfluenza 2 (PCR) (NotDetected) Parainfluenza 3 (PCR) (NotDetected) Parainfluenza 4 (PCR) (NotDetected) RSV (PCR) (NotDetected) Entero/Rhino (PCR) (NotDetected) 01/06/24 Range/Units 11:19 WBC (4.8-10.8) K/ul RBC (4.70-6.10) M/uL Hgb (14.0-18.0) g/dl Hct (42.0-52.0) % MCV (80.0-100.0) fL MCH (25.0-34.0) pg MCHC (32.0-36.0) g/dL RDW Std Deviation (36.4-46.3) fL RDW Coeff of Nimisha (11.5-14.5) % Plt Count (130-400) K/uL MPV (9.4-12.4) fL Immature Gran % (Auto) % Neut % (Auto) % Lymph % (Auto) % Dukes % (Auto) % Eos % (Auto) % Baso % (Auto) % Neut # (Auto) (1.40-6.50) K/uL Lymph # (Auto) (1.20-3.40) K/uL Dukes # (Auto) (0.11-0.59) K/uL Eos # (Auto) (0.00-0.50) K/uL Baso # (Auto) (0.00-0.20) K/uL Immature Gran # (Auto) (0.01-0.20) K/uL PT (9.0-12.0) Seconds INR (0.9-1.1) APTT (21-31) Seconds PTT Ratio Activ Coag Time Kaolin 255 H (94-140) SECONDS D-Dimer (0-500) ug/L FEU VBG pH (7.36-7.41) VBG pCO2 (38-50) mmHg VBG pO2 mmHg VBG HCO3 mmol/L VBG O2 Saturation % VBG Base Excess mEq/L Sodium (136-145) mmol/L Potassium (3.5-5.1) mmol/L Chloride (98-107) mmol/L Carbon Dioxide (21-32) mmol/L Anion Gap (3-11) BUN (6-23) mg/dl Creatinine (0.6-1.4) mg/dl Est Cr Clr Drug Dosing ml/min Est GFR ( Amer) ml/min Est GFR (Non-Af Amer) ml/min BUN/Creatinine Ratio (10-20) Glucose (70-99(Fasting)) mg/dl Lactate (0.4-2.0) mmol/L Calcium (8.6-10.3) mg/dl Magnesium (1.7-2.4) mg/dl Total Bilirubin (0.2-1.0) mg/dl AST (13-39) U/L ALT (7-52) U/L Alkaline Phosphatase (34-104) U/L Troponin I High Sens (0-20) pg/ml B-Natriuretic Peptide (0-100) pg/ml Total Protein (6.0-8.3) gm/dl Albumin (3.4-5.0) gm/dl Globulin (2.5-4.0) gm/dl Albumin/Globulin Ratio (0.9-2) Procalcitonin (0-0.5) ng/ml Urine Color Urine Appearance (Clear) Urine pH (4.5-7.5) Ur Specific [place] (1.000-1.030) Urine Protein (Negative) Urine Glucose (UA) (Negative) Urine Ketones (Negative) Urine Blood (Negative) Urine Nitrite (Negative) Urine Bilirubin (Negative) Urine Urobilinogen (Negative) Ur Leukocyte Esterase (Negative) Urine WBC (Auto) (0-5) /hpf Urine RBC (Auto) (0-2) /hpf U Hyaline Cast (Auto) (0-2) /lpf U Epithel Cells (Auto) (0-2) /hpf Urine Bacteria (Auto) (None Seen) Adenovirus (PCR) (NotDetected) B. pertussis DNA (PCR) (NotDetected) B.parapertussis DNA PCR (NotDetected) C. pneumoniae DNA (PCR) (NotDetected) Coronavirus OC43 (PCR) (NotDetected) Coronavirus HKU1 (PCR) (NotDetected) Coronavirus 229E (PCR) (NotDetected) SARS-CoV-2 (PCR) (NotDetected) Coronavirus NL63 (PCR) (NotDetected) Human Metapneumovir PCR (NotDetected) Influenza Type A (PCR) (NotDetected) Influenza Type B (PCR) (NotDetected) M. pneumoniae (PCR) (NotDetected) Parainfluenza 1 (PCR) (NotDetected) Parainfluenza 2 (PCR) (NotDetected) Parainfluenza 3 (PCR) (NotDetected) Parainfluenza 4 (PCR) (NotDetected) RSV (PCR) (NotDetected) Entero/Rhino (PCR) (NotDetected) Administered Medications Discontinued Medications Adenosine (Adenosine Iv Soln 3 Mg/Ml 20 Ml Vial) Confirm Administered Dose 120 mg IV .STK-MED ONE Stop: 01/06/24 10:55 Last Admin: 01/06/24 11:41 Dose: 120 mg Documented By: SYDNEY Albuterol (Albut/Ipratrop 3mg/0.5mg Neb 3 Ml Vial) 3 ml INH NOW STA Stop: 01/06/24 06:03 Last Admin: 01/06/24 06:42 Dose: Not Given Documented By: DAVE Fentanyl Citrate (Fentanyl Citrate Pf 100 Mcg/2 Ml Vial) Confirm Administered Dose 100 mcg .ROUTE .STK-MED ONE Stop: 01/06/24 10:11 Last Admin: 01/06/24 11:39 Dose: 75 mcg Documented By: SYDNEY Furosemide (Furosemide Inj 20 Mg/2 Ml Vial) 20 mg IV ONE ONE Stop: 01/06/24 06:48 Last Admin: 01/06/24 07:03 Dose: 20 mg Documented By: DAVE Furosemide (Furosemide Inj 20 Mg/2 Ml Vial) 20 mg IV ONE ONE Stop: 01/06/24 07:39 Last Admin: 01/06/24 08:24 Dose: 20 mg Documented By: SAI Heparin Sodium (Porcine) (Heparin (Porcine) 1000 Unit/Ml 10 Ml (Professor Of Family Medicine Use Only)) Confirm Administered Dose 10,000 units .ROUTE .STK-MED ONE Stop: 01/06/24 10:11 Last Admin: 01/06/24 11:39 Dose: 11,000 units Documented By: SYDNEY Heparin Sodium (Porcine) (Heparin (Porcine) 1000 Unit/Ml 10 Ml (Professor Of Family Medicine Use Only)) Confirm Administered Dose 10,000 units .ROUTE .STK-MED ONE Stop: 01/06/24 11:24 Last Admin: 01/06/24 11:41 Dose: Not Given Documented By: SYDNEY Heparin Sodium/Sodium Chloride (Heparin In Nss Infusion 1000 Unit/500 Ml (2 U/Ml) Bag) Confirm Administered Dose 3,000 units IV .STK-MED ONE Stop: 01/06/24 10:11 Last Admin: 01/06/24 11:40 Dose: 3,000 units Documented By: SYDNEY Nitroglycerin/Dextrose (Nitroglycerin/D5w 100 Mcg/Ml) 250 mls @ 0 mls/hr IV .Q0M [place]; Protocol Stop: 02/05/24 06:44 Last Titration: 01/06/24 08:33 Dose: 0 mcg/min, 0 mls/hr Documented By: Admin: 01/06/24 07:00 Dose: 5 mcg/min, 3 mls/hr Documented By: DAVE Co-signed By: JERALD Magnesium Sulfate/Dextrose (Magnesium Sulfate / D5w) 1 gm in 100 mls @ 100 mls/hr IV NOW STA Stop: 01/06/24 07:41 Last Infusion: 01/06/24 09:10 Dose: Infused Documented By: Admin: 01/06/24 07:06 Dose: 100 mls/hr Documented By: DAVE Iodixanol (Iodixanol (Visipaque) 320 Mg/Ml 100ml) Confirm Administered Dose 1 ml IV .STK-MED ONE Stop: 01/06/24 10:27 Last Admin: 01/06/24 11:41 Dose: 1 ml Documented By: SYDNEY Ioversol (Optiray 350) Confirm Administered Dose 1 ml .ROUTE .STK-MED ONE Stop: 01/06/24 10:11 Last Admin: 01/06/24 11:40 Dose: Not Given Documented By: SYDNEY Lorazepam (Lorazepam 1 Mg/1 Ml Syr Ed Inj Use) Confirm Administered Dose 1 mg .ROUTE .STK-MED ONE Stop: 01/06/24 07:13 Last Admin: 01/06/24 07:15 Dose: Not Given Documented By: SAI Lorazepam (Lorazepam 1 Mg/1 Ml Syr Ed Inj Use) 0.25 mg IV ONE STA Stop: 01/06/24 07:15 Last Admin: 01/06/24 07:15 Dose: 0.25 mg Documented By: SAI Lorazepam (Lorazepam 1 Mg/1 Ml Syr Ed Inj Use) 0.5 mg IV ONE STA Stop: 01/06/24 07:34 Last Admin: 01/06/24 07:38 Dose: 0.5 mg Documented By: JERALD Midazolam HCl (Midazolam Hcl 1 Mg/Ml 2ml Vial) Confirm Administered Dose 2 mg .ROUTE .STK-MED ONE Stop: 01/06/24 10:11 Last Admin: 01/06/24 11:40 Dose: 2 mg Documented By: SYDNEY Nicardipine HCl (Nicardipine Hcl Inj 2.5 Mg/Ml 10 Ml Amp) Confirm Administered Dose 25 mg .ROUTE .STK-MED ONE Stop: 01/06/24 10:11 Last Admin: 01/06/24 11:40 Dose: 25 mg Documented By: SYDNEY Nitroglycerin (Nitroglycerin Sl 0.4 Mg/Tab Tab) Confirm Administered Dose 0.4 mg .ROUTE .STK-MED ONE Stop: 01/06/24 06:41 Last Admin: 01/06/24 06:42 Dose: 0.4 mg Documented By: DAVE Nitroglycerin (Nitroglycerin Sl 0.4 Mg/Tab Tab) 0.4 mg SL NOW STA Stop: 01/06/24 06:41 Last Admin: 01/06/24 06:44 Dose: Not Given Documented By: DAVE Nitroglycerin/Dextrose (Nitroglycerin/D5w 100mcg/Ml 20ml Syr) Confirm Administered Dose 2,000 mcg .ROUTE .STK-MED ONE Stop: 01/06/24 10:11 Last Admin: 01/06/24 11:41 Dose: 2,000 mcg Documented By: SYDNEY Ondansetron HCl (Ondansetron Inj 2 Mg/Ml 2 Ml Vial) 4 mg IV NOW STA Stop: 01/06/24 06:04 Last Admin: 01/06/24 07:00 Dose: 4 mg Documented By: JERALD Imaging Data Radiologist's Impression: Chest X-Ray 01/06/24 06:02 XR chest 1V portable CLINICAL HISTORY: Dyspnea COMPARISON STUDY: Chest radiograph March 05, 2021. FINDINGS: Lung volumes are normal. There is a trace left pleural effusion. Cardiomegaly is again noted. There is mild interstitial thickening. Hazy left mid and lower lung airspace opacity is present. IMPRESSION: 1. Cardiomegaly with mild interstitial pulmonary edema. Trace left pleural effusion. 2. Hazy left mid and lower lung airspace opacity. This may reflect superimposed pneumonia or alveolar pulmonary edema. Radiographic follow-up to ensure resolution is recommended. ACT 112: Negative or not required by law. Electronically signed by: Favio Smart M.D. 01/06/2024 6:49 AM Discharge Plan Visit Data Chief Complaint: Respiratory Problems Stated Complaint: LABORING TO BREATHE,COUGH,CHILL,VOMITING ED Provider: David Amaral Discharge Problem: Flash pulmonary edema, Acute CHF, History of ischemic cardiomyopathy Discharge Instructions Interventions: ED Discharge Assessment Last Done: 01/06/24 10:00 Forms Stand Alone Forms: Spacious Prescriptions Prescriptions: No Action sildenafil 50 mg tablet 50 mg PO DAILY PRN (Reason: sexual activity) Qty: 10 3RF loratadine [Claritin] 10 mg tablet 10 mg PO DAILY Qty: 30 0RF Rx Instructions: Unable to verify OTC meds at this date/time. fluticasone propionate [Flonase Allergy Relief] 50 mcg/actuation spray,suspension 2 spray intranasal BID PRN (Reason: nasal congestion) Qty: 16 3RF Rx Instructions: Unable to verify OTC meds at this date/time. ibuprofen [Advil] 200 mg Tablet 400 mg PO DIRECTED PRN (Reason: Pain) Rx Instructions: Unable to verify OTC meds at this date/time. atorvastatin 40 mg Tablet 40 mg PO QAM Qty: 90 3RF aspirin 81 mg Tablet,Delayed Release (Dr/Ec) 81 mg PO QAM Qty: 90 3RF Rx Instructions: Unable to verify OTC meds at this date/time. metoprolol tartrate 25 mg Tablet 25 mg PO BID Qty: 180 3RF Brilinta 90 mg Tablet 90 mg PO BID Qty: 180 3RF amlodipine 5 mg tablet 0 mg PO BID Rx Instructions: Per spouse, she thinks he was taken off of this medication but she is not entirely sure as she left the medication list at home. Original Directions: 5mg by mouth twice daily Referrals Referrals: Brent Wilson MD [Primary Care Provider] - Discharge Problem: Acute CHF Qualifiers: Heart failure type: unspecified Qualified Code(s): I50.9 - Heart failure, unspecified
[2024-01-06 06:39] LABS: Albumin Globulin Ratio 1.4 (0.9-2); Albumin Level 4.2 gm/dl (3.4-5.0); BUN Creatinine Ratio 11.4 (10-20); Bilirubin,Total 0.6 mg/dl (0.2-1.0); Calcium 9.4 mg/dl (8.6-10.3); Creatinine Clr Calc Pharmacy 61.6 ml/min; Est GFR (African American) 60.7 ml/min; Est GFR (Non-African American) 52.4 ml/min; Magnesium 1.7 mg/dl (1.7-2.4); Potassium 4.1 mmol/L (3.5-5.1); Total Protein 7.2 gm/dl (6.0-8.3)
[2024-01-06] MEDS ORDERED: STAT IV Infusion **Titration per Protocol STA (06:40)
[2024-01-06] MEDS: NITROGLYCERIN SL 0.4 MG/TAB TAB ONE (06:42)
[2024-01-06] MEDS: ALBUT/IPRATROP 3MG/0.5MG NEB 3 ML VIAL INH STA (06:42)
[2024-01-06 06:43] LABS: INR 1.1 (0.9-1.1); Partial Thromboplastin Ratio 0.9; Partial Thromboplastin Time 25 Seconds (21-31); Prothrombin Time 11.8 Seconds (9.0-12.0)
[2024-01-06] MEDS: NITROGLYCERIN SL 0.4 MG/TAB TAB SL STA (06:44)
[2024-01-06 06:45] LABS: Troponin I High Sensitivity 23.7 pg/ml (0-20)
[2024-01-06 06:47] LABS: D Dimer 1520 ug/L FEU (0-500)
--- NOTE | 2024-01-06 06:50 | XRay Report ---
XR chest 1V portable CLINICAL HISTORY: Dyspnea COMPARISON STUDY: Chest radiograph March 05, 2021. FINDINGS: Lung volumes are normal. There is a trace left pleural effusion. Cardiomegaly is again note d. There is mild interstitial thickening. Hazy left mid and lower lung airspace opacity is present. IMPRESSION: 1. Cardiomegaly with mild interstitial pulmonary edema. Trace left pleural effusion. 2. Hazy left mid and lower lung airspace opacity. This may reflect superimposed pneumonia or alveolar pulmonary edema. Radiographic follow-up to ensure resolution is recommended. ACT 112: Negative or not required by law. Electronically signed by: Favio Smart M.D. 01/06/2024 6:49 AM
[2024-01-06] MEDS: ONDANSETRON INJ 2 MG/ML 2 ML VIAL IV STA (07:00)
[2024-01-06] MEDS: NITROGLYCERIN/D5W 100MCG/ML 250 ML IV SCH (07:00)
[2024-01-06] MEDS: FUROSEMIDE INJ 20 MG/2 ML VIAL IV ONE ×2 (07:03→08:24)
[2024-01-06] MEDS: MAGNESIUM SULFATE / D5W 1 GM/100 ML BAG IV STA (07:06)
[2024-01-06] MEDS: LORazepam 1 MG/1 ML SYR ED Inj Use IV STA ×2 (07:15→07:38)
[2024-01-06] MEDS: LORazepam 1 MG/1 ML SYR ED Inj Use ONE (07:15)
[2024-01-06 07:37] LABS: Adenovirus PCR Not Detected (NotDetected); Bordetella parapertussis PCR Not Detected (NotDetected); Bordetella pertussis PCR Not Detected (NotDetected); Chlamydia pneumoniae PCR Not Detected (NotDetected); Coronavirus 229E PCR Not Detected (NotDetected); Coronavirus CoV-2 (COVID19)PCR Not Detected (NotDetected); Coronavirus HKU1 PCR Not Detected (NotDetected); Coronavirus NL63 PCR Not Detected (NotDetected); Coronavirus OC43PCR Not Detected (NotDetected); Human Metapneumovirus PCR Not Detected (NotDetected); Influenza A PCR Not Detected (NotDetected); Influenza B PCR Not Detected (NotDetected); Mycoplasma pneumoniae PCR Not Detected (NotDetected); Parainfluenza Virus 1 PCR Not Detected (NotDetected); Parainfluenza Virus 2 PCR Not Detected (NotDetected); Parainfluenza Virus 3 PCR Not Detected (NotDetected); Parainfluenza Virus 4 PCR Not Detected (NotDetected); Respiratory Syncytial VirusPCR Not Detected (NotDetected); Rhinovirus/Enterovirus PCR Not Detected (NotDetected)
[2024-01-06 07:39] LABS: Appearance Urine Clear (Clear); Bacteria Urine Automated None Seen (None Seen); Bilirubin Urine Negative (Negative); Blood Urine Negative (Negative); Cast Urine Automated 0-2 /lpf (0-2); Color Urine Yellow; Epithelial Cell Urine Auto 0-2 /hpf (0-2); Glucose Urine UA Negative (Negative); Ketones Urine Negative (Negative); Leukocyte Esterase Urine Negative (Negative); Nitrite Urine Negative (Negative); Protein Urine 1+ (Negative); Specific Gravity Urine 1.015 (1.000-1.030); Urobilinogen Urine Negative (Negative); WBC Urine Automated 0-5 /hpf (0-5)
--- NOTE | 2024-01-06 09:07 | XCELERA ---
[id number] \\[email or web address]\[id number]
[2024-01-06] MEDS ORDERED: Heparin IV Adult Wt-Based Low-Dose *NO* INITIAL Bolus Protocol IV STA (09:10)
--- NOTE | 2024-01-06 09:18 | History & Physical Report ---
Date of Service January 06, 2024 Assessment & Plan (1) CAD (coronary artery disease): Plan: Concern for tak[place]so[place] cardiomyopathy. Patient presented with shortness of breath on 01/06/2024, felt to be in flash pulmonary edema, was placed on BiPAP. Previously had 3 PIERRE CX december 09, Initially acute change in echocardiogram. Patient was heparinized. Patient taken to left heart catheterization, circumflex stents are open, did have RCA lesion and did have 2 overlapping drug-eluting stents placed in his right coronary artery Elevated troponin invasive cardiac catheterization suspected to be from the same Guideline based therapy, Aspirin Brilinta atorvastatin metoprolol Hold holding outpatient amlodipine (2) Acute CHF: Plan: Acute HFrEF, EF 20-25%, ischemia is suspected (3) Hypercholesterolemia: Plan: Patient remains on atorvastatin as was per his previous hospitalization History of Present Illness Chief Complaint: Concerns for SOB Primary Care Provider: Brent Wilson MD 73 yo male Mr Bacon is a pleasant 73-year-old male admitted with complaints of indigestion that awoke him from the night. He states he awoke and felt discomfort in his epigastric and lower substernal region. He then felt nauseous and decided to go to the bathroom to vomit. However, he was unable to bring up anything. The patient then started to feel SOB when he would lay down and needed to sit up. He then decided to come to the ED due to these new symptoms. In the ED< he was found to be in flash pulmonary edema and concern for a valve rupture or new myocardial infarction was considered. The patient was placed on BIPAP. Thankfully patient improved with IV diuretics and BIPAP was removed. Patient was placed on heparin drip and then transferred to the chemical laboratory chief. The patient reports he recently had 3 stents placed in his circumflex earlier in the month and reports being compliant with his medications. Allergies Allergy/AdvReac Type Severity Reaction Status Date / Time lisinopril Allergy Severe hives Verified 12/12/23 14:50 Home Medications Medication Instructions Recorded Confirmed Type ibuprofen 200 mg tablet (Advil) 400 mg PO DIRECTED PRN Pain 03/05/21 01/06/24 History fluticasone propionate 50 2 spray intranasal BID PRN nasal 07/26/21 01/06/24 Rx mcg/actuation nasal congestion #16 grams spray,suspension (Flonase Allergy Relief) loratadine 10 mg tablet (Claritin) 10 mg PO DAILY #30 tabs 07/26/21 01/06/24 Rx sildenafil 50 mg tablet 50 mg PO DAILY PRN sexual activity 04/04/23 01/06/24 Rx #10 tabs aspirin 81 mg tablet,delayed 81 mg PO QAM #90 tabs 12/06/23 01/06/24 Rx release atorvastatin 40 mg tablet 40 mg PO QAM #90 tabs 12/06/23 01/06/24 Rx metoprolol tartrate 25 mg tablet 25 mg PO BID #180 tabs 12/06/23 01/06/24 Rx ticagrelor 90 mg tablet (Brilinta) 90 mg PO BID #180 tabs 12/06/23 01/06/24 Rx amlodipine 5 mg tablet 0 mg PO BID 01/06/24 01/06/24 History Past Med/Surg History Problem List Hypercholesterolemia CAD (coronary artery disease) History of ischemic cardiomyopathy (Acute) Acute CHF (Acute) Flash pulmonary edema (Acute) Wears hearing aid in both ears OtTricentis Real 2 miniRITE disp 04/2023 Sleep apnea Insomnia Vitamin D deficiency Syncope Hypertension (Chronic) Postcholecystectomy syndrome Chronic diarrhea Health care maintenance Screening for prostate cancer Hyperglycemia Sensorineural hearing loss (SNHL) AD: Mod HF SNHL, : Sev. HF SNHL Medical History Chest pain Abnormal stress test Colon cancer screening Encounter for pre-operative examination Cataracts, bilateral No known health problems Choledocholithiasis Surgical History Hx of tonsillectomy History of ERCP (~2018) History of colonoscopy History of tonsillectomy History of cholecystectomy LAP Family History Grandmother (Paternal) Family history of diabetes mellitus Father Family history of diabetes mellitus Myocardial infarction Brother Family history of diabetes mellitus Mother Myocardial infarction Other No family history of adverse response to anesthesia Denies family history of Ovarian cancer Prostate cancer Breast cancer Colorectal cancer Social History Smoking Status: Former smoker Second Hand Exposure: No; Do You Dip or Chew Tobacco: No; Tobacco Cessation Education Requested by Patient: No Hx Alcohol Use: No Hx Substance Use: No Preferred Language: Cantonese German Communication Ability: Effective Visual Impairment: No Limitations Hearing Ability: Use of Hearing Aid Track Service Person Required: No Beliefs That Will Affect Care: None marital status: Current Living Situation: Spouse current occupational status: retired How many Children do You have: 4 How many Children do You have Comment: 4 girls Other Information That Helps Us Care for You: No Feels Safe at Home: Yes Safety Concerns: Feels Safe At This Time Childhood Exposure to Second-Hand Smoke: Yes Diet: regular during the past year weight has: remained stable Dental Care, Regularly: Yes Physical Activity Frequency: Daily Seatbelt Use: always Sunscreen Use: No Assistive Devices: None Review of Systems Constitutional: no fever and no body aches Eyes: no blind spots Ear, Nose, Mouth, Throat: no ear pain and no tinnitus Respiratory: + cough and + dyspnea Cardiovascular: no chest pain Gastrointestinal: no abdominal pain Genitourinary: no dysuria Musculoskeletal: no back pain Integumentary: no acne Neurologic: no gait abnormality Psychiatric: no behavioral changes Endocrine: + fatigue Hematologic / Lymphatic: no easy bleeding Allergy / Immunological: no GI upset with certain foods Physical Exam Constitutional: WD/WN, vitals as above Eyes: PERRL, conjunctivae normal, anicteric sclerae ENMT: external ear and nose normal, oropharynx normal Neck: trachea midline, no thyromegaly Respiratory: + respiratory distress, + uses accessory muscles and + audible wheezes Cardiovascular: Rate/Rhythm: regular rhythm and + tachycardic Gastrointestinal (Abdomen): normal bowel sounds, soft, nontender, no hepatosplenomegaly Musculoskeletal: no cyanosis or clubbing, extremities motor strength 5/5 Skin: no rashes, warm and dry Neurologic: PERRL, EOMI, accommodation nl, no face palsy, no dysarthria Psychiatric: A+Ox3, euthymic affect Lymphatic: no cervical or axillary lymphadenopathy Results & Data Results & Data Vital Signs (Past 12 Hours) Vital Signs Temp Pulse Pulse Resp BP BP Pulse Ox 01/06/24 09:00 116 H 20 135/79 95 01/06/24 08:49 158 H 01/06/24 08:45 122 H 20 117/78 96 01/06/24 08:35 116 H 20 107/78 96 01/06/24 08:30 121 H 20 97/78 L 95 01/06/24 08:25 120 H 20 110/75 94 01/06/24 08:22 125 H 20 147/76 H 98 01/06/24 08:15 120 H 20 120/73 95 01/06/24 08:05 122 H 32 H 108/73 95 01/06/24 08:01 126 H 32 H 87/70 L 94 01/06/24 07:42 126 H 12 146/93 H 01/06/24 07:30 130 H 22 98 01/06/24 07:15 135 H 16 126/96 96 01/06/24 07:00 126 H 16 134/88 97 01/06/24 06:58 127 H 25 H 98 01/06/24 06:30 115 H 22 169/111 H 95 01/06/24 06:20 96 01/06/24 06:06 126 H 28 H 95 01/06/24 06:02 01/06/24 06:02 124 H 26 H 175/124 H 96 01/06/24 05:57 126 H 01/06/24 05:44 37.2 C 132 H 40 H 181/123 H 96 O2 Del Method O2 Flow Rate FiO2 01/06/24 09:00 Room Air 01/06/24 08:49 01/06/24 08:45 Room Air 01/06/24 08:35 Room Air 01/06/24 08:30 Room Air 01/06/24 08:25 Room Air 01/06/24 08:22 Room Air 01/06/24 08:15 Room Air 01/06/24 08:05 Room Air 01/06/24 08:01 Room Air 01/06/24 07:42 BiPAP 21 01/06/24 07:30 01/06/24 07:15 BiPAP 21 01/06/24 07:00 BiPAP 21 01/06/24 06:58 21 01/06/24 06:30 Room Air 01/06/24 06:20 Room Air 0 01/06/24 06:06 Room Air 01/06/24 06:02 Room Air 01/06/24 06:02 Room Air 01/06/24 05:57 01/06/24 05:44 Room Air PG Care Time/CCT Total # of Minutes Spent Total Time Spent with Patient: Total time spent is greater than 50% in coordination of care (as documented) at patient's floor/unit and/or counseling patient: Coding Level of Care Code 73903 INT INP/OBS CARE MIN Diagnoses CAD (coronary artery disease) I25.10 Acute CHF I50.9 Heart failure type: unspecified Hypercholesterolemia E78.00 (2) Acute CHF Heart failure type: unspecified Qualified Code(s): I50.9 - Heart failure, unspecified
[2024-01-06] MEDS ORDERED: Heparin IV Adult Wt-Based Low-Dose *NO* INITIAL Bolus Protocol IV SCH (09:30)
--- NOTE | 2024-01-06 10:30 | Pre Anesthesia Assessment ---
Date of Service January 06, 2024 Pre Sedation Assessment Vital Signs Temp Pulse Pulse Resp BP BP Pulse Ox 01/06/24 09:00 116 H 20 135/79 95 01/06/24 08:49 158 H 01/06/24 08:45 122 H 20 117/78 96 01/06/24 08:35 116 H 20 107/78 96 01/06/24 08:30 121 H 20 97/78 L 95 01/06/24 08:25 120 H 20 110/75 94 01/06/24 08:22 125 H 20 147/76 H 98 01/06/24 08:15 120 H 20 120/73 95 01/06/24 08:05 122 H 32 H 108/73 95 01/06/24 08:01 126 H 32 H 87/70 L 94 01/06/24 07:42 126 H 12 146/93 H 01/06/24 07:30 130 H 22 98 01/06/24 07:15 135 H 16 126/96 96 01/06/24 07:00 126 H 16 134/88 97 01/06/24 06:58 127 H 25 H 98 01/06/24 06:30 115 H 22 169/111 H 95 01/06/24 06:20 96 01/06/24 06:06 126 H 28 H 95 01/06/24 06:02 01/06/24 06:02 124 H 26 H 175/124 H 96 01/06/24 05:57 126 H 01/06/24 05:44 99.0 F 132 H 40 H 181/123 H 96 O2 Del Method O2 Flow Rate FiO2 01/06/24 09:00 Room Air 01/06/24 08:49 01/06/24 08:45 Room Air 01/06/24 08:35 Room Air 01/06/24 08:30 Room Air 01/06/24 08:25 Room Air 01/06/24 08:22 Room Air 01/06/24 08:15 Room Air 01/06/24 08:05 Room Air 01/06/24 08:01 Room Air 01/06/24 07:42 BiPAP 21 01/06/24 07:30 01/06/24 07:15 BiPAP 21 01/06/24 07:00 BiPAP 21 01/06/24 06:58 21 01/06/24 06:30 Room Air 01/06/24 06:20 Room Air 0 01/06/24 06:06 Room Air 01/06/24 06:02 Room Air 01/06/24 06:02 Room Air 01/06/24 05:57 01/06/24 05:44 Room Air Cardiovascular + regular rate Respiratory + respiratory effort normal Pre-Sedation Airway Assessment Smoking Status: Former smoker Hx Sleep Apnea: No Hx Difficult Intubation: No Short, Thick Neck: No Thyromental Distance: > or= 3.5 Finger Breadths Oral Cavity: + WNL Mallampati Class: III ASA: ASA4 NPO Status Date of Last Intake of Fluids: 01/05/24 Date of Last Intake of Solid Food: 01/05/24 Procedure Planning Contraindications for Sedation: none Current Medications Reviewed: Yes Notes The planned sedation has been discussed with the patient. Informed Consent was obtained. I have identified the patient, determined the appropriateness of sedation and have assessed the patient immediately prior to the procedure. All medicine(s) and interventions are by my order.
[2024-01-06] MEDS ORDERED: ICU Protocol for HYPERglycemia SCH (11:30)
[2024-01-06] MEDS: fentaNYL citrate PF 100 MCG/2 ML VIAL ONE (11:39)
[2024-01-06] MEDS: HEPARIN (PORCINE) 1000 UNIT/ML 10 ML (CATH LAB USE ONLY) ONE ×2 (11:39→11:41)
[2024-01-06] MEDS: MIDAZOLAM HCL 1 MG/ML 2ML VIAL ONE (11:40)
[2024-01-06] MEDS: niCARdipine HCL INJ 2.5 MG/ML 10 ML AMP ONE (11:40)
[2024-01-06] MEDS: OPTIRAY 350 ONE (11:40)
[2024-01-06] MEDS: NITROGLYCERIN/D5W 100MCG/ML 20ML SYR ONE (11:41)
[2024-01-06] MEDS: IODIXANOL (VISIPAQUE) 320 MG/ML 100ML IV ONE (11:41)
[2024-01-06] MEDS: ADENOSINE IV SOLN 3 MG/ML 20 ML VIAL IV ONE (11:41)
--- NOTE | 2024-01-06 12:00 | Post Anesthesia Assessment ---
Date of Service January 06, 2024 Post Sedation Assessment Vital Signs Temp Pulse Pulse Resp BP BP Pulse Ox 01/06/24 09:00 116 H 20 135/79 95 01/06/24 08:49 158 H 01/06/24 08:45 122 H 20 117/78 96 01/06/24 08:35 116 H 20 107/78 96 01/06/24 08:30 121 H 20 97/78 L 95 01/06/24 08:25 120 H 20 110/75 94 01/06/24 08:22 125 H 20 147/76 H 98 01/06/24 08:15 120 H 20 120/73 95 01/06/24 08:05 122 H 32 H 108/73 95 01/06/24 08:01 126 H 32 H 87/70 L 94 01/06/24 07:42 126 H 12 146/93 H 01/06/24 07:30 130 H 22 98 01/06/24 07:15 135 H 16 126/96 96 01/06/24 07:00 126 H 16 134/88 97 01/06/24 06:58 127 H 25 H 98 01/06/24 06:30 115 H 22 169/111 H 95 01/06/24 06:20 96 01/06/24 06:06 126 H 28 H 95 01/06/24 06:02 01/06/24 06:02 124 H 26 H 175/124 H 96 01/06/24 05:57 126 H 01/06/24 05:44 99.0 F 132 H 40 H 181/123 H 96 O2 Del Method O2 Flow Rate FiO2 01/06/24 09:00 Room Air 01/06/24 08:49 01/06/24 08:45 Room Air 01/06/24 08:35 Room Air 01/06/24 08:30 Room Air 01/06/24 08:25 Room Air 01/06/24 08:22 Room Air 01/06/24 08:15 Room Air 01/06/24 08:05 Room Air 01/06/24 08:01 Room Air 01/06/24 07:42 BiPAP 21 01/06/24 07:30 01/06/24 07:15 BiPAP 21 01/06/24 07:00 BiPAP 21 01/06/24 06:58 21 01/06/24 06:30 Room Air 01/06/24 06:20 Room Air 0 01/06/24 06:06 Room Air 01/06/24 06:02 Room Air 01/06/24 06:02 Room Air 01/06/24 05:57 01/06/24 05:44 Room Air Recovery Score Activity: Moves 4 extremities Respiration: Deep Breath/Cough Circulation: +/-20% PreAnes Value Consciousness: Fully Awake Oxygen Saturation: > 92% On Room Air Discharge Sedation Level of Care: Fast Track Phase II Post Sedation Plan On clinical assessment, the patient appears to have tolerated the sedation without complications. Patient is recovering as anticipated. Patient will continue to be monitored by nursing and may be discharged when sedation discharge criteria are met per below protocol. Upon Completions of procedure up to 15 minutes continue every 5 minute vital signs and the P.A.R. score; then discharge to a Phase I or Fast Track to Phase II per the following guidelines: * Discharge Patient to appropriate Phase II area if PAR is 8 or greater or return to pre- procedure baseline. The post - procedure orders will be as directed. * If PAR score is less than 8 or not return to pre-procedure baseline then patient will follow Phase I monitoring till PAR is reached for Phase II. The Phase I may be done in procedure room or may call to secure a Phase I area. * If naloxone or flumazenil are used for reversal, hold in Phase I for continued monitoring from when last reversal dose was given for a minimum of 60 minutes or longer pending the nurse and/or physician discretion of patient condition before discharge to Phase II. Please call the Sedation Physician to re-evaluate and complete post-note for discharge to Phase II area. Do NOT discharge from procedure sedation or Phase 1 until post- sedation evaluation note is complete by procedure /sedation MD Sedation Discharge Instructions to be given to the patient at discharge to home.
--- NOTE | 2024-01-06 12:09 | Cardiac Catheterization ---
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 Cardiac Status Clinical evaluation leading to the procedure CAD Presenation: Non STEMI Heart Failure: NYHA Class: CCS IV Diagnostic Physicians Name: Schuyler Haley MD Closure Device Recommendations: PCI without planned CABG Cardiac Cath Procedure Full Procedure Date January 06, 2024 Pre-Procedure Diagnosis Pre-Procedure Diagnosis: Non STEMI, CHF and Cardiomyopathy AUC Score AUC Score: 8 Post-Procedure Diagnosis Post-Procedure Diagnosis: Severe CAD, Successful PCI and Normal Intracardiac Pressures Procedure(s) Performed Procedure(s) Performed: Coronary Angiography, Left Heart Cath, Drug Eluting Stent and Fractional Flow [place] Top Installer Schuyler Haley MD Gas Shovel Operator(s) [place] Estimated Blood Loss Estimated Blood Loss: 15 Medication(s) Medication(s): Fentanyl, Heparin, Lidocaine 1%, Nicardipine, Nitroglycerin and Versed Medication(s): Ticagrelor Summary of Findings Indication: Acute heart failure, new severe LV dysfunction. History of CAD post 3 PIERRE to circumflex 12/05/2023. At that time had borderline distal RCA disease. Access: 6 Fr left radial artery Catheters: JL 4, JR4, JR4 guide Findings: LM -calcified, normal caliber, 20% distal stenosis LAD -medium caliber, 30% mid segment stenosis after D1, distal vessel with mild disease up to 30% before wraps around apex. D1 30-40% mid segment stenosis Circumflex -medium caliber, proximal to distal stents widely patent. Left PLB without significant disease. RCA -dominant, large caliber, 40% lateproximal stenosis, mid segment luminal regularities, earlydistal focal (napkin ring) 75% stenosis with calcified 70% stenosis just prior to bifurcation with PDA. Medium caliber RPDA with 50% mid segment disease LVEDP -10 FFR procedure: -RCA cannulated with JR4 guide -Scion blue wire placed into distal PDA -ACIST Catheter placed across stenosis -Pd/Pa 0.88 -FFR 0.73 -Decision to proceed with PCI -- PCI -- Antithrombotic therapy: Heparin, ticagrelor Procedure: Pre-procedure flow YESENIA 3 Distal RCA lesions predilated with 3.0 compliant balloon Dilated distal RCA lesion stented with 3.0 x 18 mm Eden into proximal PDA Dilated earlydistal RCA lesion stented with 3.5 x 15 mm Vasiliy Stents post-dilated with 3.75 noncompliant balloon IC vasodilators administered for spasm Post procedure YESENIA 3 flow, stent well expanded with minimal residual stenosis and no apparent cardiac complications. Arterial Closure: TR band Summary: 1. Nonischemic cardiomyopathy 2. Stable multivessel coronary artery disease Widely patent proximal to distal circumflex stents Sequential 70% distal RCA lesions (FFR 0.73). 3. Normal left-sided filling pressure 4. Successful PCI of distal RCA lesions with 2 nonoverlapping drug-eluting stents (3.5 x 15 Eden and 3.0 x 18 mm Vasiliy extending into PDA; stent postdilated with 3.75 NC). Recommendations: To PCU for continued monitoring Continue dual-antiplatelet therapy with aspirin, ticagrelor for 1 year Continue gentle diuresis and initiation of GDMT for nonischemic cardiomyopathy Hemodynamics Rest Ao:: 117/69/21 Final Ao: 102/63/59 LV: 112/10 Recommendations Recommendations: PCI without planned CABG Specimens Specimens: None Radiation Exposure (mGy) 3728 Contrast (mls) 165 Anesthesia Moderate 6315-6226 Procedural Complication(s) None Disposition PCU I attest to the content of the Intraoperative Record and any orders documented therein. Any exceptions are noted below. [facility] Card Cath Procedure Codes Cardiac Catheterization Procedure 1: Cardiovascular Cath Procedures: 68867 Coronaries and LHC (+/-LV) Procedure 2: Cardiovascular Cath Procedures: 34077 (Doppler) Pressure Wire Moderate Sedation Procedure 1: Sedation/Anesthesia: 36147 Mod Sedation by the same physician;Init15 Min Child Age 5 & Up Procedure 2: Sedation/Anesthesia: 73031 Mod Sedation by the same physician; Ea [id number] Minutes Stenting Procedure 1: Cardiovascular Stent Procedures: 02711 Perc transcatheter placement of intracoronary stent(s), with ang PG Care Time/CCT Total # of Minutes Spent Total Time Spent with Patient: Total time spent is greater than 50% in coordination of care (as documented) at patient's floor/unit and/or counseling patient:
--- NOTE | 2024-01-06 16:07 | Electrocardiogram Report ---
Test Reason : Blood Pressure : / mmHG Vent. Rate : 127 BPM Atrial Rate : 127 BPM P-R Int : 172 ms QRS Dur : 098 ms QT Int : 288 ms P-R-T Axes : 050 046 -10 degrees QTc Int : 418 ms Sinus tachycardia Cannot rule out Inferior infarct (cited on or before 05-DEC-2023) Abnormal ECG When compared with ECG of 05-DEC-2023 13:52, MD interval has decreased Vent. rate has increased BY 46 BPM Questionable change in initial forces of Inferior leads Nonspecific T wave abnormality has replaced inverted T waves in Anterior leads Confirmed by Brent Rosas ([id number]) on 01/06/2024 4:06:42 PM Referred By: Confirmed By:Brent Rosas
[2024-01-06] MEDS: METOPROLOL TARTRATE 25 MG TAB PO SCH (16:09)
--- NOTE | 2024-01-06 16:26 | Electrocardiogram Report ---
Test Reason : Blood Pressure : / mmHG Vent. Rate : 100 BPM Atrial Rate : 100 BPM P-R Int : 184 ms QRS Dur : 102 ms QT Int : 374 ms P-R-T Axes : 044 022 -57 degrees QTc Int : 482 ms Normal sinus rhythm Inferior infarct (cited on or before 05-DEC-2023) T wave abnormality, consider lateral ischemia Abnormal ECG When compared with ECG of 06-JAN-2024 05:54, (unconfirmed) Questionable change in initial forces of Inferior leads Confirmed by Brent Rosas ([id number]) on 01/06/2024 4:25:40 PM Referred By: REFERRED SELF Confirmed By:Brent Rosas
[2024-01-06] MEDS: PANTOprazole 40 MG TAB PO STA (19:17)
[2024-01-06] MEDS: METOPROLOL TARTRATE 1 MG/ML VIAL IV STA (19:17)
[2024-01-06] MEDS: HEPARIN SODIUM/DEXTROSE 25,000 UNITS/500 ML BAG IV SCH (19:20)
[2024-01-06] MEDS: FUROSEMIDE 40 MG/4 ML VIAL IV ONE (19:35)
[2024-01-06 19:57] LABS: A calco-baum cmplx NotReported Not Detected (NotDetected); Bact fragilis Not Reported Not Detected (NotDetected); Blood Culture Id Panel See PCR Comment (NotDetected); C auris Not Reported Not Detected (NotDetected); CTX-M Resistant Gene Not Detected (NotDetected); Calbicans Not Reported Not Detected (NotDetected); Candida glabrata Not Reported Not Detected (NotDetected); Candida krusei Not Reported Not Detected (NotDetected); Cneoformans/gatti Not Reported Not Detected (NotDetected); Cparapsilosis Not Reported Not Detected (NotDetected); E cloacae compx Not Reported Not Detected (NotDetected); Efaecalis Not Reported Not Detected (NotDetected); Efaecium Not Reported Not Detected (NotDetected); Enterobacterales DETECTED (NotDetected); Enterobacterales Not Reported DETECTED (NotDetected); Escherichia coli Not Reported DETECTED (NotDetected); H influenzae Not Reported Not Detected (NotDetected); IMP Resistant Gene Not Detected (NotDetected); K aerogenes Not Reported Not Detected (NotDetected); KPC Resistant Gene Not Detected (NotDetected); Koxytoca Not Reported Not Detected (NotDetected); Kpneumoniae grp Not Reported Not Detected (NotDetected); Lmonocyt Not Reported Not Detected (NotDetected); N meningitidis Not Reported Not Detected (NotDetected); NDM Resistant Gene Not Detected (NotDetected); OXA 48 Like Resistant Gene Not Detected (NotDetected); P aeruginosa Not Reported Not Detected (NotDetected); Proteus spp Not Reported Not Detected (NotDetected); Salmonella spp Not Reported Not Detected (NotDetected); Smarcescens Not Reported Not Detected (NotDetected); Staph lugdunensis Not Reported Not Detected (NotDetected); Staph spp. Not Reported Not Detected (NotDetected); Staphaureus Not Reported Not Detected (NotDetected); Staphepi Not Reported Not Detected (NotDetected); Stenmaltophilia Not Reported Not Detected (NotDetected); Strep agal(GrpB) Not Reported Not Detected (NotDetected); Strep pneum Not Reported Not Detected (NotDetected); Strep pyog (GrpA) Not Reported Not Detected (NotDetected); Strep spp Not Reported Not Detected (NotDetected); VIM Resistant Gene Not Detected (NotDetected); mcr-1 Colistin Resistant Gene Not Detected (NotDetected)
[2024-01-06] MEDS: TICAGRELOR 90 MG TAB PO SCH (20:53)
[2024-01-06] MEDS: cefTRIAXone SODIUM 2,000 MG/50 ML BAG IV SCH (21:50)
--- NOTE | 2024-01-07 07:35 | Hospitalist Progress Note ---
Date of Service January 07, 2024 Assessment & Plan (1) CAD (coronary artery disease): Plan: Patient presented with shortness of breath on 01/06/2024, felt to be in flash pulmonary edema, was placed on BiPAP. Previously had 3 PIERRE CX december 09, Initially acute change in echocardiogram. Patient was heparinized. Patient taken to left heart catheterization, circumflex stents are open, did have RCA lesion and did have 2 overlapping drug-eluting stents placed in his right c oronary artery Elevated troponin invasive cardiac catheterization suspected to be from the same Guideline based therapy, Aspirin Brilinta atorvastatin metoprolol Hold holding outpatient amlodipine (2) Acute CHF: Plan: Acute HFrEF, EF 20-25%, ischemia is suspected (3) Hypercholesterolemia: Plan: Patient remains on atorvastatin as was per his previous hospitalization Admission and Anticipated Discharge Date Admission Date: January 06, 2024 Results & Data Results & Data Vital Signs (Past 12 Hours) Vital Signs Temp Pulse Pulse Resp BP Pulse Ox O2 Del Method 01/07/24 02:36 97.9 F 84 18 110/71 94 Room Air 01/06/24 23:00 70 01/06/24 22:36 97.9 F 80 18 106/65 96 Room Air 01/06/24 20:00 Room Air PG Care Time/CCT Total # of Minutes Spent Total Time Spent with Patient: Total time spent is greater than 50% in coordination of care (as documented) at patient's floor/unit and/or counseling patient: Coding Diagnoses CAD (coronary artery disease) I25.10 Acute CHF I50.9 Heart failure type: unspecified Hypercholesterolemia E78.00 (2) Acute CHF Heart failure type: unspecified Qualified Code(s): I50.9 - Heart failure, unspecified
[2024-01-07 07:59] LABS: Hematocrit (blood only) 40.3 % (42.0-52.0); Hemoglobin 14.2 g/dl (14.0-18.0); Mean Corpuscular Hgb Conc 35.2 g/dL (32.0-36.0); Mean Platelet Volume 9.1 fL (9.4-12.4); Platelet Count 202 K/uL (130-400); RDW Coefficient of Variation 12.8 % (11.5-14.5); Red Blood Count 4.58 M/uL (4.70-6.10); White Blood Count 9.09 K/ul (4.8-10.8)
[2024-01-07 08:38] LABS: BUN Creatinine Ratio 16.8 (10-20); Creatinine Clr Calc Pharmacy 65.7 ml/min; Est GFR (African American) 73.3 ml/min; Est GFR (Non-African American) 63.2 ml/min; Potassium 3.4 mmol/L (3.5-5.1)
[2024-01-07] MEDS: ATORVASTATIN 40 MG TAB PO SCH (09:13)
[2024-01-07] MEDS: ASPIRIN 81 MG ECTAB PO SCH (09:13)
--- NOTE | 2024-01-07 12:40 | Cardiology Progress Note ---
Date of Service January 07, 2024 Assessment & Plan (1) Flash pulmonary edema: Plan: -responded to intravenous diuretics. -LVEF now 20-25%. -distal RCA lesions not responsible for more global LV dysfunction. (2) Nonischemic cardiomyopathy: Plan: -although CAD identified, suspect stress-induced cardiomyopathy. -would change metoprolol tartrate to metoprolol succinate. -would initiate losartan 25 mg daily. -will arrange outpatient echocardiogram in approximately 2 weeks. -follow-up with Dr. Grace. (3) CAD (coronary artery disease): Plan: -s/p distal RCA PIERRE x2, January 06, 2024. -s/p LCx PIERRE x3, December 07, 2023. -continue medical management. (4) Hypertension: Plan: -adequate control on current regimen. (5) Hypercholesterolemia: Plan: -continue atorvastatin. Admission and Anticipated Discharge Date Admission Date: January 06, 2024 Subjective The patient is resting comfortably in bed without complaints of chest pain, dyspnea, or palpitations. He is anxious for hospital discharge. Physical Exam Physical Exam: In general this is a well-developed well-nourished white male in no acute distress. HEENT exam is negative. Neck is supple with full carotid upstrokes. There are no carotid bruits. Jugular venous pressure is flat at 90. There is no thyromegaly. Cardiovascular exam reveals a regular rhythm with a normal S1 and S2. No S3, S4, or murmurs are noted. Lungs are clear without rales, rhonchi, or wheezes. Abdomen is soft and nontender without bruits. Extremities reveal intact radial artery and posterior tibial pulses bilaterally. There is no peripheral edema. Results & Data Vital Signs (Past 12 Hours) Vital Signs Temp Pulse Resp BP Pulse Ox O2 Del Method 01/07/24 11:39 36.5 C 77 18 121/73 96 Room Air 01/07/24 07:33 36.8 C 89 18 131/81 95 Room Air 01/07/24 02:36 36.6 C 84 18 110/71 94 Room Air Diagnostic Findings research specialist notes occasional PACs and PVCs. PG Care Time/CCT Total # of Minutes Spent Total Time Spent with Patient: Total time spent is greater than 50% in coordination of care (as documented) at patient's floor/unit and/or counseling patient: Coding Level of Care Code 48663 SUB INP/OBS CARE 350MIN Diagnoses Flash pulmonary edema J81.0 Nonischemic cardiomyopathy I42.8 CAD (coronary artery disease) I25.10 Hypertension I10 Hypercholesterolemia E78.00
--- NOTE | 2024-01-07 19:20 | Discharge Summary ---
Discharge Summary Date of Service January 07, 2024 Notes For Next Care Provider pt new start losartan as outpt 01/07 and change metoprolol to succinate pt was without issues at dc Admission HPI Per Admitting Provider 73 yo male Mr Bacon is a pleasant 73-year-old male admitted with complaints of indigestion that awoke him from the night. He states he awoke and felt discomfort in his epigastric and lower substernal region. He then felt nauseous and decided to go to the bathroom to vomit. However, he was unable to bring up anything. The patient then started to feel SOB when he would lay down and needed to sit up. He then decided to come to the ED due to these new symptoms. In the ED< he was found to be in flash pulmonary edema and concern for a valve rupture or new myocardial infarction was considered. The patient was placed on BIPAP. Thankfully patient improved with IV diuretics and BIPAP was removed. Patient was placed on heparin drip and then transferred to the manager cath lab. The patient reports he recently had 3 stents placed in his circumflex earlier in the month and reports being compliant with his medications. Principal Dx & Hospital Course #1 = Principal Diagnosis (1) CAD (coronary artery disease): Concern for [place] cardiomyopathy. Patient presented with shortness of breath on 01/06/2024, felt to be in flash pulmonary edema, was placed on BiPAP. Previously had 3 PIERRE CX december 09, Initially acute change in echocardiogram. Patient was heparinized. Patient taken to left heart catheterization, circumflex stents are open, did have RCA lesion and did have 2 overlapping drug-eluting stents placed in his right coronary artery Elevated troponin invasive cardiac catheterization suspected to be from the same Guideline based therapy, Aspirin Brilinta atorvastatin metoprolol- change to succinate, added losartan 25 mg discontinue outpatient amlodipine (2) Acute CHF: Acute HFrEF, EF 20-25%, ischemia is suspected (3) Hypercholesterolemia: Patient remains on atorvastatin as was per his previous hospitalization Discharge Exam left wrist site c/d/i lungs are clear cardiac exam is regular Updated Medication List Medication Instructions Recorded Confirmed Type ibuprofen 200 mg tablet (Advil) 400 mg PO DIRECTED PRN Pain 03/05/21 01/06/24 History fluticasone propionate 50 2 spray intranasal BID PRN nasal 07/26/21 01/06/24 Rx mcg/actuation nasal congestion #16 grams spray,suspension (Flonase Allergy Relief) loratadine 10 mg tablet (Claritin) 10 mg PO DAILY #30 tabs 07/26/21 01/06/24 Rx sildenafil 50 mg tablet 50 mg PO DAILY PRN sexual activity 04/04/23 01/06/24 Rx #10 tabs aspirin 81 mg tablet,delayed 81 mg PO QAM #90 tabs 12/06/23 01/06/24 Rx release atorvastatin 40 mg tablet 40 mg PO QAM #90 tabs 12/06/23 01/06/24 Rx ticagrelor 90 mg tablet (Brilinta) 90 mg PO BID #180 tabs 12/06/23 01/06/24 Rx losartan 25 mg tablet 25 mg PO DAILY #30 tabs 01/07/24 Rx metoprolol succinate 25 mg 25 mg PO DAILY #30 tabs 01/07/24 Rx tablet,extended release 24 hr Hospital Stay Data Consultations 01/06/24 07:14 Consult Cardiology Stat 01/06/24 07:37 ED Decision to Admit Stat Procedures Performed Operation Date: 01/06/24 10:00 Actual Procedures s Cineradiography w/Routine Exam - Schuyler Haley MD p Cath, Left with Cors and Vent - Schuyler Haley MD p Drug Eluting Stent SGl Vessel - Schuyler Haley MD s Fraction Flow [place] SGL Ves - Schuyler Haley MD Diagnostic Imagining Performed 01/06/24 09:57 CL Cath Imgs for PACS use only Stat Pending Results Patient Have Any Pending Studies at Discharge: No Discharge Instructions Given to Patient (Per Discharging Provider) Dr Rosas did suggest to have changes to his metoprolol to long acting and adding losartan to you medications to help your heart improve take one half of your metoprolol tartrate this evening and start the new metoprolol succinate in am 01/08/24 ACTIVITY RECOMMENDATIONS: Excess manipulation of the wrist should be avoided for the next 24-48 hours. * No lifting over 2 pounds (approximately a 1/2 gallon of milk) with the utilized arm for 24 hours. * No strenuous activity such as bowling or tennis for 3 days. * Keep the site of the procedure covered with a bandage for 24 hours. *You may shower the day after the procedure. Do not take a tub bath or submerge the puncture site in water for the next 3 days. *Do not operate any motorized equipment for 3 days. SPECIAL CARE INSTRUCTIONS: The site may be slightly bruised and sore following your procedure. Should any of the following occur, contact the Dr. who performed your procedure. 1. Redness/inflammation, swelling, chills, or fever, or colored drainage at procedure site within 3-7 days after your procedure. 2. Coldness, discoloration, ongoing numbness, severe pain, or swelling. Expect mild tingling of hand and tenderness at the puncture site for up to three days. If this persists beyond three days, or other symptoms develop, notify the Dr. who performed your procedure. BLEEDING: If the procedure site on your wrist begins to bleed, do not panic 1. Place 1 or 2 fingers firmly just slightly above the insertion site to stop the bleeding. You may be able to feel your pulse as you hold pressure. 2. Lift your finger after 5 minutes to see if the bleeding has stopped. 3. Once the bleeding has stopped, gently wipe the wrist area clean with a bandage. * If the bleeding from your wrist does not stop after 10 minutes, or if there is a large amount of bleeding or spurting, call 911 (do not drive yourself to the hospital). SKIN IRRITATION: * You may experience some redness and/or swelling in the area where radiation was administered. If any skin irritation occurs, please contact your family physician. FOLLOW UP VISIT: Keep any scheduled doctor appointments. Total Time Total Time Spent Total Time Spent (In Minutes): greater than 30 minutes required to complete discharge Coding Level of Care Code 47150 INP/OBS DISCH >30 MIN Diagnoses CAD (coronary artery disease) I25.10 Acute CHF I50.9 Heart failure type: unspecified Hypercholesterolemia E78.00
== END 2024-01-07 12:59 | disposition home or self-care (01) ==
LOC: ED 05:41 → INTOOBSV 09:09 → SUATTDRO 09:09 → 2S 09:09